=== PATIENT | female | born 1955 | race Caucasian/White ===

== ENCOUNTER 2021-02-25 20:39 | Emergency (ER) | payer MEDICAID, SELFPAY ==
[2021-02-25 20:51] VITALS: BP 134/77; PULSE 82; RESP 18; TEMP 36.2; O2SAT 96; BMI 26.2
[2021-02-25] MEDS: Cyclobenzaprine HCl 10 MG TABLET PO (22:21)
[2021-02-25] MEDS: predniSONE 20 MG TABLET 60 MG PO (22:22)
[2021-02-25] MEDS: Acetaminophen 325 MG TABLET 650 MG PO (22:23)
[2021-02-25] MEDS: Lidocaine 4 % Patch ADH..PATCH 1 PATCH TRANSDERMA (22:24)
--- NOTE | 2021-02-25 22:29 | ED_ITS ---
HPI - General Adult General Chief complaint: Back Pain/Injury Stated complaint: muscle spasms Time Seen by Provider: 02/25/21 22:09 Source: patient Mode of arrival: ambulatory Limitations: no limitations History of Present Illness HPI narrative: Patient presents to ED for chronic back pain/muscle spasms. Patient states she ran out of her Flexeril. Patient states she cannot take aspirin and NSAIDs for pain relief. Patient denies any recent trauma to the back, nausea, vomiting, fever, chills, dysuria, hematuria, abdominal pain or flank pain. Patient denies any urinary/bowel incontinence. Related Data Previous Rx's Medication Instructions Recorded cyclobenzaprine 10 mg tablet 10 mg PO TID PRN #18 tab 02/25/21 lidocaine 4 % topical patch 1 patch TOPICAL BID PRN #10 ea 02/25/21 prednisone 20 mg tablet 60 mg PO DAILY 5 Days #15 tab 02/25/21 Allergies Allergy/AdvReac Type Severity Reaction Status Date / Time aspirin [ASPIRIN] Allergy Intermediate RASH Verified 02/25/21 20:56 Penicillins [PENICILLINS] Allergy Intermediate SWELLING Verified 02/25/21 20:56 tramadol [TRAMADOL] Allergy Unknown NAUSEA Verified 02/25/21 20:56 Review of Systems Review of Systems: Yes all other systems are reviewed and are negative Constitutional: Constitutional: Reports as per HPI and Reports no additional constitutional complaints Eyes: Eyes: Reports as per HPI and Reports no additional eye complaints ENT: Reports system reviewed and no additional complaints, except as documented and Reports as per HPI Cardiovascular: Cardiovascular: Reports as per HPI and Reports no additional cardiovascular complaints Respiratory: Respiratory: Reports as per HPI and Reports no additional respiratory complaints Gastrointestinal: Gastrointestinal: Reports as per HPI and Reports no additional gastrointestinal complaints Genitourinary: Genitourinary: Reports no additional female genitourinary complaints and Reports as per HPI Musculoskeletal: Musculoskeletal: Reports no additional musculoskeletal complaints, Reports as per HPI and Reports back pain Neurologic: Reports system reviewed and no additional complaints, except as documented and Reports as per HPI Psychiatric: Psychiatric: Reports no additional psychiatric complaints and Reports as per HPI Endocrine: Endocrine: Reports no additional endocrine complaints and Reports as per HPI [facility] Past Medical History Medical History (Updated 02/25/21 @ 22:38 by DESIRE Baker) No known health problems Social History Social History Advance Directives: No Advance Directives Information Provided: Yes Patient : No Physical Exam Vital Signs: Vital Signs: Last Vital Signs Temp 97.1 F 02/25/21 20:51 Pulse 82 02/25/21 20:51 Resp 18 02/25/21 20:51 BP 134/77 02/25/21 20:51 Pulse Ox 96 02/25/21 20:51 Body Mass Index 26.2 Const: General: cooperative, healthy appearing, comfortable, no acute distress, well developed, alert, awake and Physically active Orientation/ consciousness: patient oriented x3 HENMT: Head: Yes normal to inspection, Yes No palpable skull fracture present, Yes normocephalic and Yes atraumatic Eyes: General: appearance normal, both eyes and all related structures Neck: Neck: Yes normal visual inspection, Yes full ROM, Yes no lymphadenopathy, Yes no meningeal signs, Yes trachea midline, Yes supple and No tender Chest: Chest palpation & inspection: normal inspection of the chest and normal palpation of entire chest wall Resp: Effort & Inspection: normal respiratory effort and able to speak in complete sentences Auscultation: clear to auscultation bilaterally Cardio: Jugular venous distension: no JVD Heart sounds: S1 normal heart sound present and S2 normal heart sound present GI: Inspection: Yes normal to inspection and No abdominal wall ecchymosis Palpation (GI): Soft to palpation, not firm, nontender, no guarding and not rigid : General: No CVA tenderness and Yes no CVA tenderness Back/Spine/Pelvis: Back: no CVA tenderness, No CVA tenderness and No back tenderness Back/spine/pelvis image: 1. Mild tenderness on palpation. Positive for pain on her range of motion. Negative for any ecchymosis. Patient has normal gait. Skin: General skin exam: no rashes or lesions noted and elasticity normal Neuro: General: patient oriented x3, gait normal, no meningeal signs and CN's II-XI intact bilaterally Cranial nerves: Yes CN's II-XII intact bilaterally Extrem: General: Yes normal to inspection and Yes full ROM Psych: Appearance: grossly normal, well kempt and not disheveled Course Course Course Narrative: Chronic back pain. Muscle spasms Reevaluation(s) Reevaluation #1: Patient given Flexeril, lidocaine patch, and prednisone. Patient will be discharged with same meds. Time: 22:33 Medical Decision Making [facility] Narrative Medical decision making narrative: Chronic back pain. Muscle spasm Discharge Plan Discharge Clinical Impression: Chronic back pain, Muscle spasm Patient Disposition: Home, Self-Care Instructions: Muscle Spasm (ED), Chronic Back Pain (DC) Additional Instructions: Regrese al servicio de urgencias por empeoramiento del dolor de espalda, incontinencia urinaria / intestinal, fiebre, escalofr?os, hematuria, disuria, v?mitos, dolor abdominal o cualquier otro s?ntoma preocupante. Se le cari? de markus con prednisona, parche de lidoca?na y Flexeril. Roger un seguimiento con de leon PCP. Prescriptions: New prednisone 20 mg tablet 60 mg PO DAILY 5 Days Qty: 15 RF: 0 cyclobenzaprine 10 mg tablet 10 mg PO TID PRN (Reason: muscle spasm) Qty: 18 RF: 0 lidocaine 4 % adhesive patch,medicated 1 patch topical BID PRN (Reason: pain) Qty: 10 RF: 0 Interventions: ED Discharge Assessment Last Done: 02/25/21 23:18 Discharge Date/Time: 02/25/21 23:24 Print Language: Setswana
== END 2021-02-25 23:24 | disposition home or self-care (01) ==
PROVIDERS: Emergency Provider Emergency Medicine
DX: M62.830 Muscle spasm of back (principal); G89.29 Other chronic pain; M54.9 Dorsalgia, unspecified
CPT/HCPCS: 99283; 99284

== ENCOUNTER 2021-02-28 16:47 | Emergency (ER) | payer MEDICAID, SELFPAY ==
[2021-02-28 17:04] VITALS: BP 124/66; PULSE 83; RESP 16; TEMP 37; O2SAT 96; BMI 26.2
--- NOTE | 2021-02-28 18:42 | ED.GENADULT ---
HPI - General Adult General Chief complaint: Back Pain/Injury <DESIRE Marquez Last Filed: 02/28/21 19:13> Stated complaint: muscle spasm <DESIRE Marquez Last Filed: 02/28/21 19:13> Time Seen by Provider: 02/28/21 17:40 <DESIRE Marquez Last Filed: 02/28/21 19:13> History of Present Illness HPI narrative: Patient with 2 complaints 1st complaint is she now has pain behind her right knee which she does not feel is radiating pain from her back She does have chronic back pain and has been troubled with sciatica in the same area but feels this is different from her sciatica Her 2nd complaint is the muscle relaxer she has been taking for her back pain is not sufficient and is hoping she could get a different pain medication for her back She denies fever chills no weakness no changes to bowel or bladder no difficulty breathing <DESIRE Marquez Last Filed: 02/28/21 19:13> Related Data Home medications: Previous Rx's Medication Instructions Recorded cyclobenzaprine 10 mg tablet 10 mg PO TID PRN #18 tab 02/25/21 lidocaine 4 % topical patch 1 patch TOPICAL BID PRN #10 ea 02/25/21 prednisone 20 mg tablet 60 mg PO DAILY 5 Days #15 tab 02/25/21 oxycodone 5 mg tablet 5 mg PO Q8H PRN 3 Days #10 tab 02/28/21 oxycodone 5 mg tablet 5 mg PO TID PRN #10 tab 02/28/21 <DESIRE Marquez Last Filed: 02/28/21 19:13> Allergies/adverse reactions: Allergies Allergy/AdvReac Type Severity Reaction Status Date / Time aspirin [ASPIRIN] Allergy Intermediate RASH Verified 02/28/21 17:09 Penicillins [PENICILLINS] Allergy Intermediate SWELLING Verified 02/28/21 17:09 tramadol [TRAMADOL] Allergy Unknown NAUSEA Verified 02/28/21 17:09 <DESIRE Marquez Last Filed: 02/28/21 19:13> Review of Systems Review of Systems: Positive for right popliteal pain as well as back pain Negatives are no fever no chills no dizziness no weakness no fainting no feeling faint no headache no neck pain no chest pain no shortness of breath no abdominal pain no nausea vomiting or diarrhea no dysuria no frequency no incontinence no changes to bowel or bladder no rashes no muscle weakness no loss of sensation <DESIRE Marquez - Last Filed: 02/28/21 19:13> Yes all other systems are reviewed and are negative <DESIRE Marquez - Last Filed: 02/28/21 19:13> [facility] Past Medical History Source: nursing notes reviewed <DESIRE Marquez - Last Filed: 02/28/21 19:13> Medical History: Medical History (Updated 03/01/21 @ 00:02 by Isabelle Anderson) Arthritis Diabetes No known health problems Retinopathy <DESIRE Marquez - Last Filed: 02/28/21 19:13> Social History Social History: Social History Advance Directives: No Advance Directives Information Provided: No <DESIRE Marquez - Last Filed: 02/28/21 19:13> Physical Exam Vital Signs: Vital Signs: Last Vital Signs Temp 98.6 F 02/28/21 17:04 Pulse 83 02/28/21 17:04 Resp 16 02/28/21 17:04 BP 124/66 02/28/21 17:04 Pulse Ox 96 02/28/21 17:04 Body Mass Index 26.2 <DESIRE Marquez - Last Filed: 02/28/21 19:13> Vital Signs: Last Vital Signs Temp 98.6 F 02/28/21 17:04 Pulse 83 02/28/21 17:04 Resp 16 02/28/21 17:04 BP 124/66 02/28/21 17:04 Pulse Ox 96 02/28/21 17:04 Body Mass Index 26.2 <Jose Juan Saucedo NP - Last Filed: 03/01/21 02:08> General appearance is no acute distress Head is normocephalic atraumatic Neck is supple The chest is clear to auscultation bilateral, no pleuritic pain Heart no murmur Abdomen soft nontender The back and lower lumbar tenderness worse on the right with no focal bony tenderness no rashes no CVA tenderness, pain is worse with movement Extremities is full range of motion x4 The right leg there is tenderness in the popliteal area of the right knee as well as some mild calf tenderness, skin is normal there is no redness no warmth no wound no rash, neurovascular intact distal no edema Skin no rashes Neuro no focal motor or sensory deficit <DESIRE Marquez - Last Filed: 02/28/21 19:13> Course Course Course Narrative: Patient with right popliteal pain could not be evaluated with ultrasound tonight as not available so plan is D-dimer, if negative discharge patient home with addition of a small quantity of Percocet for her back pain If D-dimer is positive she will be anticoagulated and return Tuesday for ultrasound 19:00 the case is signed out to physician medical assistant Sheryl to follow labs and dispo patient <DESIRE Marquez - Last Filed: 02/28/21 19:13> Reevaluation(s) Reevaluation #1: D-dimer negative consistent with acute on chronic low back pain in setting of spondylosis will discharge home with support on return: Follow-up instructions. Ambulatory status 50. Stable for discharge. <Jose Juan Saucedo NP - Last Filed: 03/01/21 02:08> Medical Decision Making Lab Data Result diagrams: : 02/28/21 18:41 02/28/21 18:41 <DESIRE Marquez - Last Filed: 02/28/21 19:13> Labs: Lab Results 02/28/21 02/28/21 02/28/21 Range/Units 18:41 18:41 18:41 WBC 7.3 (4.8-10.8) X10*3/uL RBC 3.90 L (4.20-5.50) X10*6/uL Hgb 10.6 L (12.0-16.0) g/dl Hct 32.6 L (37-47) % MCV 83.6 (80-98) fL MCH 27.2 (27.0-33.0) pg MCHC 32.5 (31.0-35.0) g/dl RDW 13.5 (11.0-16.0) % Plt Count 231 (160-400) X10*3/uL MPV 10.7 (9.4-12.3) fL Immature Gran % (Auto) 0.5 H (0.0-0.4) % Neut % (Auto) 50.9 (45-73) % Lymph % (Auto) 39.6 (20-40) % [place] % (Auto) 7.4 (2-11) % Eos % (Auto) 1.1 (0-4) % Baso % (Auto) 0.5 (0-2) % Lymph # (Auto) 2.9 (1.2-4.9) X10*3/uL [place] # (Auto) 0.5 (0.1-1.2) X10*3/uL Eos # (Auto) 0.1 (0.0-0.4) X10*3/uL Baso # (Auto) 0.0 (0.0-0.2) X10*3/uL Abs Immat Gran (auto) 0.04 H (0.00-0.03) X10*3/uL Absolute Neuts (auto) 3.7 (2.0-8.3) X10*3/uL Absolute Nucleated RBC 0.000 (0.0-0.012) X10*3/uL Nucleated RBC % (auto) 0.0 (0.0-0.2) /100WBC D-Dimer < 200 NG/ML Sodium 142 (135-145) mmol/L Potassium 4.5 (3.3-5.1) mmol/L Chloride 106 (96-108) mmol/L Carbon Dioxide 26 (22-29) mmol/L Anion Gap 15 (12-20) BUN 23 H (9-16) mg/dL Creatinine 0.83 (0.5-1.4) mg/dL Estim Creat Clear Calc 53.5 Estimated GFR > 60 Random Glucose 141 H (60-115) mg/dL Calcium 10.0 (8.4-10.2) mg/dL <DESIRE Marquez - Last Filed: 02/28/21 19:13> Lab Results 02/28/21 02/28/21 02/28/21 Range/Units 18:41 18:41 18:41 WBC 7.3 (4.8-10.8) X10*3/uL RBC 3.90 L (4.20-5.50) X10*6/uL Hgb 10.6 L (12.0-16.0) g/dl Hct 32.6 L (37-47) % MCV 83.6 (80-98) fL MCH 27.2 (27.0-33.0) pg MCHC 32.5 (31.0-35.0) g/dl RDW 13.5 (11.0-16.0) % Plt Count 231 (160-400) X10*3/uL MPV 10.7 (9.4-12.3) fL Immature Gran % (Auto) 0.5 H (0.0-0.4) % Neut % (Auto) 50.9 (45-73) % Lymph % (Auto) 39.6 (20-40) % [place] % (Auto) 7.4 (2-11) % Eos % (Auto) 1.1 (0-4) % Baso % (Auto) 0.5 (0-2) % Lymph # (Auto) 2.9 (1.2-4.9) X10*3/uL [place] # (Auto) 0.5 (0.1-1.2) X10*3/uL Eos # (Auto) 0.1 (0.0-0.4) X10*3/uL Baso # (Auto) 0.0 (0.0-0.2) X10*3/uL Abs Immat Gran (auto) 0.04 H (0.00-0.03) X10*3/uL Absolute Neuts (auto) 3.7 (2.0-8.3) X10*3/uL Absolute Nucleated RBC 0.000 (0.0-0.012) X10*3/uL Nucleated RBC % (auto) 0.0 (0.0-0.2) /100WBC D-Dimer < 200 NG/ML Sodium 142 (135-145) mmol/L Potassium 4.5 (3.3-5.1) mmol/L Chloride 106 (96-108) mmol/L Carbon Dioxide 26 (22-29) mmol/L Anion Gap 15 (12-20) BUN 23 H (9-16) mg/dL Creatinine 0.83 (0.5-1.4) mg/dL Estim Creat Clear Calc 53.5 Estimated GFR > 60 Random Glucose 141 H (60-115) mg/dL Calcium 10.0 (8.4-10.2) mg/dL <Jose Juan Saucedo NP - Last Filed: 03/01/21 02:08> Discharge Plan Discharge Clinical Impression: Back pain, Leg pain, right <DESIRE Marquez - Last Filed: 02/28/21 19:13> Patient Disposition: Home, Self-Care <DESIRE Marquez - Last Filed: 02/28/21 19:13> Prescriptions: New oxycodone 5 mg tablet 5 mg PO Q8H PRN (Reason: pain) 3 Days Qty: 10 RF: 0 oxycodone 5 mg tablet 5 mg PO TID PRN (Reason: pain) Qty: 10 RF: 0 No Action prednisone 20 mg tablet 60 mg PO DAILY 5 Days Qty: 15 RF: 0 cyclobenzaprine 10 mg tablet 10 mg PO TID PRN (Reason: muscle spasm) Qty: 18 RF: 0 lidocaine 4 % adhesive patch,medicated 1 patch topical BID PRN (Reason: pain) Qty: 10 RF: 0 <DESIRE Marquez - Last Filed: 02/28/21 19:13> Interventions: ED Discharge Assessment Last Done: 02/28/21 20:04 <DESIRE Marquez - Last Filed: 02/28/21 19:13> Discharge Date/Time: 02/28/21 20:12 <DESIRE Marquez - Last Filed: 02/28/21 19:13>
[2021-02-28 18:45] LABS: MANUAL DIFF FLAG NO
[2021-02-28 18:46] LABS: Basophils Percent Auto 0.5 % (0-2); Eosinophils Absolute Auto 0.1 X10*3/uL (0.0-0.4); Eosinophils Percent Auto 1.1 % (0-4); Hematocrit 32.6 % (37-47); Hemoglobin 10.6 g/dl (12.0-16.0); Imm Gran Abs Auto 0.04 X10*3/uL (0.00-0.03); Imm Gran Pct Auto 0.5 % (0.0-0.4); Lymphocytes Absolute Auto 2.9 X10*3/uL (1.2-4.9); Lymphocytes Percent Auto 39.6 % (20-40); Mean Corpuscular HGB Conc 32.5 g/dl (31.0-35.0); Mean Corpuscular Hemoglobin 27.2 pg (27.0-33.0); Mean Corpuscular Volume 83.6 fL (80-98); Mean Platelet Volume 10.7 fL (9.4-12.3); Monocytes Absolute Auto 0.5 X10*3/uL (0.1-1.2); Monocytes Percent Auto 7.4 % (2-11); Neutrophils Absolute Auto 3.7 X10*3/uL (2.0-8.3); Neutrophils Percent Auto 50.9 % (45-73); Platelet Count 231 X10*3/uL (160-400); Red Cell Distribution Width 13.5 % (11.0-16.0); White Blood Count 7.3 X10*3/uL (4.8-10.8)
[2021-02-28 18:56] LABS: D Dimer < 200 NG/ML
[2021-02-28 19:19] LABS: Anion Gap 15 (12-20); Blood Urea Nitrogen 23 mg/dL (9-16); Carbon Dioxide 26 mmol/L (22-29); Chloride 106 mmol/L (96-108); Creatinine Clr Calc Pharmacy 53.5; Estimated Glomerular Filt Rate > 60; Glucose Random 141 mg/dL (60-115); Potassium 4.5 mmol/L (3.3-5.1); Sodium 142 mmol/L (135-145)
== END 2021-02-28 20:12 | disposition home or self-care (01) ==
PROVIDERS: Physician Assistant Medical; Emergency Provider Emergency Medicine
DX: G89.29 Other chronic pain (principal); M54.5 Low back pain; M79.661 Pain in right lower leg; E11.9 Type 2 diabetes mellitus without complications
CPT/HCPCS: 36415; 80048; 85025; 85379; 99283

== ENCOUNTER 2021-04-06 11:50 | Emergency (ER) | payer MEDICAID, SELFPAY ==
--- NOTE | ~2021-04-06 | XR_ITS ---
EXAMINATION: XR KNEE, RIGHT CLINICAL INFORMATION: Twisting injury COMPARISON: None TECHNIQUE: Four views of the right knee. FINDINGS: Bone alignment is normal. No fracture or dislocation is seen. The femoral tibial joints are normal. There is small osteophytes at the patellofemoral joint. There is an osteophyte at the quadriceps tendon insertion to the patella. There is a small joint effusion. XR/XR knee RT 4V IMPRESSION: No fracture or dislocation. Mild degenerative changes at the patellofemoral joint and small joint effusion.
[2021-04-06 12:30] VITALS: BP 166/85; PULSE 76; RESP 16; TEMP 36.9; O2SAT 100; BMI 26.2
--- NOTE | 2021-04-06 15:24 | ED.LOWEXIN ---
HPI - Extremity Injury (Lower) General Chief Complaint: General Medical Stated Complaint: med refill, rt knee pain Time Seen by Provider: 04/06/21 13:55 Source: patient and family Mode of arrival: ambulatory Limitations: language barrier (Bulgarian-speaking) History of Present Illness HPI Narrative: 65-year-old female presenting to the ED with complaints of right knee pain after she fell approximately 1 month ago and recently had a twisting injury when she was going on the steps and that increased her pain. She reports she was never seen for her right knee pain when she fell. She denies head injury or loss of consciousness when she fell. She denies any symptoms prior to the fall or any prolonged downtown any symptoms after the fall. She has a 2nd complaint of requesting medication refill as she normally lives in [place] and does not have a primary care provider at this time here in [place] and she needs the refill on her Plavix 75 mg daily. She took it this morning. Metoprolol extended release 100 mg she took it this morning. Amlodipine 5 mg tablets she ran out this morning although took 1 this morning. atorvastatin 40 mg tablets she took this morning. Otherwise she denies any other medication request refills. She denies any other symptoms complaints or concerns at this time. complaint: knee injury Onset (ago): month(s) (1 month ago worsen the past few days) Type of Injury: other (Twist injury) Place: home Severity: mild Relieving factors: nothing Exacerbating factors: weight bearing, movement and palpation Context: other (Twist injury) Associated symptoms: ambulatory Other symptoms: none Related Data Previous Rx's Medication Instructions Recorded cyclobenzaprine 10 mg tablet 10 mg PO TID PRN #18 tab 02/25/21 lidocaine 4 % topical patch 1 patch TOPICAL BID PRN #10 ea 02/25/21 prednisone 20 mg tablet 60 mg PO DAILY 5 Days #15 tab 02/25/21 oxycodone 5 mg tablet 5 mg PO Q8H PRN 3 Days #10 tab 02/28/21 oxycodone 5 mg tablet 5 mg PO TID PRN #10 tab 02/28/21 acetaminophen 300 mg-codeine 30 mg 1 tab PO Q8H PRN #10 tab 04/06/21 tablet amlodipine 5 mg tablet 5 mg PO DAILY #30 tab 04/06/21 atorvastatin 40 mg tablet 40 mg PO DAILY #30 tab 04/06/21 clopidogrel 75 mg tablet (Plavix) 75 mg PO DAILY #30 tab 04/06/21 lidocaine HCl 4 % topical cream 1 appl TOPICAL BID PRN #120 g 04/06/21 (Aspercreme (lidocaine HCl)) metoprolol succinate 100 mg 100 mg PO DAILY #30 tab 04/06/21 tablet,extended release 24 hr walker #1 ea 04/06/21 Allergies Allergy/AdvReac Type Severity Reaction Status Date / Time aspirin [ASPIRIN] Allergy Intermediate RASH Verified 02/28/21 17:09 Penicillins [PENICILLINS] Allergy Intermediate SWELLING Verified 02/28/21 17:09 tramadol [TRAMADOL] Allergy Unknown NAUSEA Verified 02/28/21 17:09 Review of Systems Review of Systems: Constitutional : No Weight loss, No Fever, No Chills, No Night Sweats, No Fatigue, No Malaise ENT/Mouth : No Hearing loss, No Ear Pain, No Nasal Congestion, No Sinus Pain, No Hoarseness, No sore throat, No Rhinorrhea, No Swallowing Difficulty Eyes: No Eye Pain, No Swelling, No Redness, No Foreign Body, No Discharge, No Vision Changes Cardiovascular : No Chest Pain, No SOB, No Dyspnea on Exertion, No Orthopnea, No Edema, No Palpitations Respiratory : No Cough, No Sputum, No Wheezing, No Smoke Exposure, No Dyspnea Gastrointestinal : No Nausea, No Vomiting, No Diarrhea, No Constipation, No abdominal Pain, No Hematochezia, No Melena Genitourinary : no irregular bleeding, No Dysuria, No Urinary Frequency, No Hematuria, No Urinary Incontinence, No Urgency, No Flank Pain, No Urinary Flow Changes, No Hesitancy Musculoskeletal : Positive right knee joint pain, No Myalgias, No Joint Swelling Skin : No Skin Lesions, No rash Neuro : No Weakness, No Numbness, No Paresthesias, No Loss of Consciousness, No Dizziness, No Headache Psych : No Anxiety/Panic, No Depression, No SI/HI/AH/VH, No Social Issues, Heme/Lymph: No Bruising, No Bleeding,No Lymphadenopathy Endocrine : No Polyuria, No Polydipsia, No Temperature Intolerance Yes all other systems are reviewed and are negative [facility] Past Medical History Attestation statement: The following information was validated with the patient. Medical History Arthritis Diabetes No known health problems Retinopathy Social History Social History Advance Directives: No Advance Directives Information Provided: Yes Physical Exam Vital Signs: Vital Signs: Last Vital Signs Temp 98.4 F 04/06/21 12:30 Pulse 76 04/06/21 12:30 Resp 16 04/06/21 12:30 BP 166/85 H 04/06/21 12:30 Pulse Ox 100 04/06/21 12:30 Body Mass Index 26.2 vital signs have been reviewed as normal and appeared to be correct. Blood pressure hypertensive 166/85. Heart rate normal. Respiration rate normal. Temperature normal. Oxygen saturation normal. Appearance: Alert. Oriented X3. No acute distress. Head: Normal external exam. Normocephalic. Atraumatic. Eyes: PERRLA. EOMI. Conjunctiva and sclera normal. Eyelids normal. ENT: Pharynx normal. Uvula midline. Moist mucous membranes. Neck: Normal inspection. Neck supple. FROM. CVS: Normal heart rate and rhythm. Respiratory: No respiratory distress. Painless inspiration. Skin: Skin warm and dry. Normal skin color. Normal skin turgor. No rashes/lesions/lacerations noted. Extremities: No calf tenderness is noted. No lower extremity edema. Patient with tenderness palpation diffusely on the right knee although no obvious joint effusion/ligamentous injury or tendon injury. Patient has full range of motion of the right knee. No signs of infection. No fluctuance/induration is noted. Otherwise all other extremities exhibit normal range of motion and nontender. Neuro: Oriented X 3. No motor deficit. No sensory deficit. Reflexes normal. Normal steady gait. No focal neuro deficits noted. Vascular: + radial pulses/+ 2 distal pedal pulses/+2 dorsalis pedis b/l. Normal cap refill. No cyanosis noted to upper extremity nails and lower extremity toes nails. Course Course Course Narrative: 65-year-old female presenting to the ED with complaints of right knee pain after she fell 1 month ago and recently twisted it a few days ago. Denies head injury or loss of consciousness. Also requesting for medication refill for her for medications she took them all this morning. Although ran out of the amlodipine this morning. Denies any cardiac related complaints. Reports that she does not have a primary care provider because she recently moved back here from [place]. Therefore x-ray of right knee ordered and if negative will DC home with symptomatic treatment and will DC home with numbers for primary care providers that she can contact and referral for her medications which include Plavix 700 mg tablet. Metoprolol 100 mg tablets extended release. Amlodipine 5 mg tablet and a statin. Along with instructions to return if any new or worsening symptoms. Patient understands agrees with this plan. MDM - Extremity Injury (Lower) Medical Records Attestation: I reviewed the patient's medical records. Imaging Data Right knee x-ray: Attestation: I personally reviewed and interpreted this imaging study as follows: Radiologist's impression: FINDINGS: Bone alignment is normal. No fracture or dislocation is seen. The femoral tibial joints are normal. There is small osteophytes at the patellofemoral joint. There is an osteophyte at the quadriceps tendon insertion to the patella. There is a small joint effusion.? XR/XR knee RT 4V IMPRESSION: No fracture or dislocation. Mild degenerative changes at the patellofemoral joint and small joint effusion. Discharge Plan Discharge Clinical Impression: Right knee sprain, Arthritis of right knee, Medication refill, Joint effusion of knee Patient Disposition: Home, Self-Care Instructions: Knee Sprain (ED), Osteoarthritis (ED), How to Use an Elastic Bandage (ED), Swollen Knee Joint (ED), Medicine Refill (ED) Prescriptions: New acetaminophen-codeine 300-30 mg tablet 1 tab PO Q8H PRN (Reason: pain) Qty: 10 RF: 0 lidocaine HCl [Aspercreme (lidocaine HCl)] 4 % cream 1 appl topical BID PRN (Reason: pain) Qty: 120 RF: 0 metoprolol succinate 100 mg tablet extended release 24 hr 100 mg PO DAILY Qty: 30 RF: 3 amlodipine 5 mg tablet 5 mg PO DAILY Qty: 30 RF: 3 clopidogrel [Plavix] 75 mg tablet 75 mg PO DAILY Qty: 30 RF: 3 atorvastatin 40 mg tablet 40 mg PO DAILY Qty: 30 RF: 3 (DME) emerson Crespo See Rx Instructions .Route Qty: 1 RF: 0 No Action prednisone 20 mg tablet 60 mg PO DAILY 5 Days Qty: 15 RF: 0 cyclobenzaprine 10 mg tablet 10 mg PO TID PRN (Reason: muscle spasm) Qty: 18 RF: 0 lidocaine 4 % adhesive patch,medicated 1 patch topical BID PRN (Reason: pain) Qty: 10 RF: 0 oxycodone 5 mg tablet 5 mg PO Q8H PRN (Reason: pain) 3 Days Qty: 10 RF: 0 oxycodone 5 mg tablet 5 mg PO TID PRN (Reason: pain) Qty: 10 RF: 0 Referrals: [facility] [Provider Group] - 2 days [facility] [Provider Group] - 2 days [facility] [place] [facility] [Provider Group] - 2 days Print Language: Bulgarian
[2021-04-06 15:56] VITALS: BP 136/65; PULSE 70; RESP 16; TEMP 36.4; O2SAT 98
== END 2021-04-06 16:23 | disposition home or self-care (01) ==
PROVIDERS: Emergency Provider Emergency Medicine Emergency Medical Services
DX: S83.91XA Sprain of unspecified site of right knee, initial encounter (principal); M12.561 Traumatic arthropathy, right knee; W10.9XXA Fall (on) (from) unspecified stairs and steps, initial encounter; Y93.9 Activity, unspecified; Y92.89 Other specified places as the place of occurrence of the external cause; Y99.9 Unspecified external cause status; Z76.0 Encounter for issue of repeat prescription; Z79.899 Other long term (current) drug therapy
CPT/HCPCS: 73564; 99283; 99284

== ENCOUNTER 2021-05-18 11:32 | Emergency (ER) | payer MEDICARE, SELFPAY ==
[2021-05-18 12:35] VITALS: BP 147/76; PULSE 81; RESP 18; TEMP 35.5; O2SAT 100; BMI 25.4
--- NOTE | 2021-05-18 13:24 | ED.GENADULT ---
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 Patient also have no complaint at this point. Related Data Previous Rx's Medication Instructions Recorded cyclobenzaprine 10 mg tablet 10 mg PO TID PRN #18 tab 02/25/21 lidocaine 4 % topical patch 1 patch TOPICAL BID PRN #10 ea 02/25/21 prednisone 20 mg tablet 60 mg PO DAILY 5 Days #15 tab 02/25/21 oxycodone 5 mg tablet 5 mg PO Q8H PRN 3 Days #10 tab 02/28/21 oxycodone 5 mg tablet 5 mg PO TID PRN #10 tab 02/28/21 acetaminophen 300 mg-codeine 30 mg 1 tab PO Q8H PRN #10 tab 04/06/21 tablet amlodipine 5 mg tablet 5 mg PO DAILY #30 tab 04/06/21 atorvastatin 40 mg tablet 40 mg PO DAILY #30 tab 04/06/21 clopidogrel 75 mg tablet (Plavix) 75 mg PO DAILY #30 tab 04/06/21 lidocaine HCl 4 % topical cream 1 appl TOPICAL BID PRN #120 g 04/06/21 (Aspercreme (lidocaine HCl)) metoprolol succinate 100 mg 100 mg PO DAILY #30 tab 04/06/21 tablet,extended release 24 hr walker #1 ea 04/06/21 gabapentin 600 mg tablet 300 mg PO TID #30 tab 05/18/21 glipizide 5 mg tablet 2.5 mg PO DAILY #30 tab 05/18/21 hydrochlorothiazide 25 mg tablet 25 mg PO DAILY #30 tab 05/18/21 lisinopril 40 mg tablet 40 mg PO DAILY #30 tab 05/18/21 metformin 500 mg tablet 500 mg PO BID #30 tab 05/18/21 Allergies Allergy/AdvReac Type Severity Reaction Status Date / Time aspirin [ASPIRIN] Allergy Intermediate RASH Verified 02/28/21 17:09 Penicillins [PENICILLINS] Allergy Intermediate SWELLING Verified 02/28/21 17:09 tramadol [TRAMADOL] Allergy Unknown NAUSEA Verified 02/28/21 17:09 Review of Systems Review of Systems: All other systems are reviewed and are negative Constitutional: Reports as per HPI and Reports no additional constitutional complaints Eyes: Reports as per HPI and Reports no additional eye complaints Reports system reviewed and no additional complaints, except as documented Cardiovascular: Reports as per HPI and Reports no additional cardiovascular complaints Respiratory: Reports as per HPI and Reports no additional respiratory complaints Gastrointestinal: Reports as per HPI and Reports no additional gastrointestinal complaints Genitourinary: Reports no additional female genitourinary complaints Musculoskeletal: Reports no additional musculoskeletal complaints Skin/Breast: Reports system reviewed and no additional complaints, except as docu Psychiatric: Reports no additional psychiatric complaints Endocrine: Reports no additional endocrine complaints Hematologic/Lymphatic: Reports no additional hematologic/lymphatic complaints Allergic/Immunologic: Reports no additional allergic/immunologic complaints Reports system reviewed and no additional complaints, except as documented and Reports Abnormal speech present [facility] Past Medical History Medical History Arthritis Diabetes No known health problems Retinopathy Social History Social History Advance Directives: No Advance Directives Information Provided: No Physical Exam Vital Signs: Vital Signs: Last Vital Signs Temp 96 F L 05/18/21 12:35 Pulse 81 05/18/21 12:35 Resp 18 05/18/21 12:35 BP 147/76 H 05/18/21 12:35 Pulse Ox 100 05/18/21 12:35 Body Mass Index 25.4 vital signs have been reviewed as appeared to be correct. Blood pressure normal. Heart rate normal. Respiration rate normal. Temperature normal. Oxygen saturation normal. Appearance: Alert. Oriented X3. No acute distress. Head: Normal external exam. Normocephalic. Atraumatic. No [place] signs noted. No raccoon eyes noted Eyes: PERRLA. EOMI. Conjunctiva and sclera normal. Eyelids normal. ENT: TM's Normal. Pharynx normal. Uvula midline. Moist mucous membranes. No trismus noted. No drooling noted. No muffled voice noted. Neck: Normal inspection. Neck supple. FROM. No adenopathy. Thyroid Normal. No meningeal signs. No neck mass noted. CVS: Normal heart rate and rhythm. Heart sound normal. No murmurs noted. Pulses normal throughout. Respiratory: No respiratory distress. Painless inspiration. Breath sounds normal. No wheezes/rales/rhonchi noted. Chest nontender. No accessory muscle usage noted or decreased air movement noted. Abdomen: Soft and nontender. Bowel sounds normal in all 4 quadrants. No distention noted. No organomegaly noted. No visible injury noted. Back: No CVA tenderness. Full range of motion noted. Skin: Skin warm and dry. Normal skin color. Normal skin turgor. No rashes/lesions/lacerations noted. Extremities: No lower extremity edema. Extremities exhibit normal range of motion. Extremities nontender. Neuro: Oriented X 3. Cranial nerve exam: II-XII are grossly intact No motor deficit. No sensory deficit. Reflexes normal. Course Course Course Narrative: Assessment and plan. 66-year-old female has no complaint today only asking for refill of her medication until she gets to a doctor. Discharge Plan Discharge Clinical Impression: Encounter for medical screening examination Patient Disposition: Home, Self-Care Prescriptions: New hydrochlorothiazide 25 mg tablet 25 mg PO DAILY Qty: 30 RF: 0 glipizide 5 mg tablet 2.5 mg PO DAILY Qty: 30 RF: 0 metformin 500 mg tablet 500 mg PO BID Qty: 30 RF: 0 gabapentin 600 mg tablet 300 mg PO TID Qty: 30 RF: 0 lisinopril 40 mg tablet 40 mg PO DAILY Qty: 30 RF: 0 No Action prednisone 20 mg tablet 60 mg PO DAILY 5 Days Qty: 15 RF: 0 cyclobenzaprine 10 mg tablet 10 mg PO TID PRN (Reason: muscle spasm) Qty: 18 RF: 0 lidocaine 4 % adhesive patch,medicated 1 patch topical BID PRN (Reason: pain) Qty: 10 RF: 0 acetaminophen-codeine 300-30 mg tablet 1 tab PO Q8H PRN (Reason: pain) Qty: 10 RF: 0 lidocaine HCl [Aspercreme (lidocaine HCl)] 4 % cream 1 appl topical BID PRN (Reason: pain) Qty: 120 RF: 0 metoprolol succinate 100 mg tablet extended release 24 hr 100 mg PO DAILY Qty: 30 RF: 3 amlodipine 5 mg tablet 5 mg PO DAILY Qty: 30 RF: 3 clopidogrel [Plavix] 75 mg tablet 75 mg PO DAILY Qty: 30 RF: 3 atorvastatin 40 mg tablet 40 mg PO DAILY Qty: 30 RF: 3 (HUGO) walker Misc See Rx Instructions .Route Qty: 1 RF: 0 oxycodone 5 mg tablet 5 mg PO Q8H PRN (Reason: pain) 3 Days Qty: 10 RF: 0 oxycodone 5 mg tablet 5 mg PO TID PRN (Reason: pain) Qty: 10 RF: 0 Referrals: Physician,None [Primary Care Provider] - 2 days
== END 2021-05-18 13:44 | disposition home or self-care (01) ==
PROVIDERS: Emergency Provider Emergency Medicine
DX: Z76.0 Encounter for issue of repeat prescription (principal); E11.9 Type 2 diabetes mellitus without complications; M19.90 Unspecified osteoarthritis, unspecified site
CPT/HCPCS: 99283

== ENCOUNTER 2021-06-24 09:13 | Emergency (ER) | payer MEDICARE, SELFPAY ==
[2021-06-24 10:21] VITALS: BP 122/67; PULSE 90; RESP 16; TEMP 36.9; O2SAT 98; BMI 26.2
--- NOTE | 2021-06-24 11:08 | ED_ITS ---
HPI - Recheck/Abnormal Lab/Rx General Chief Complaint: General Medical Stated Complaint: Medication refill Time Seen by Provider: 06/24/21 11:05 Source: patient Mode of arrival: ambulatory Limitations: language barrier ([place]dean-speaking) History of Present Illness HPI narrative: 66-year-old female who is [place]dean-speaking presenting with her grandson at bedside with request for all her medications to be refilled because she recently moved from [place] and has not established a primary care provider yet is currently on a wait list she denies any symptoms at this time. MD complaint: medication refill request Returns today for: request for prescription Symptoms since prior visit: no new symptoms Context: ran out of medication Associated symptoms: none Related Data Previous Rx's Medication Instructions Recorded cyclobenzaprine 10 mg tablet 10 mg PO TID PRN #18 tab 02/25/21 lidocaine 4 % topical patch 1 patch TOPICAL BID PRN #10 ea 02/25/21 prednisone 20 mg tablet 60 mg PO DAILY 5 Days #15 tab 02/25/21 oxycodone 5 mg tablet 5 mg PO Q8H PRN 3 Days #10 tab 02/28/21 oxycodone 5 mg tablet 5 mg PO TID PRN #10 tab 02/28/21 acetaminophen 300 mg-codeine 30 mg 1 tab PO Q8H PRN #10 tab 04/06/21 tablet amlodipine 5 mg tablet 5 mg PO DAILY #30 tab 04/06/21 atorvastatin 40 mg tablet 40 mg PO DAILY #30 tab 04/06/21 clopidogrel 75 mg tablet (Plavix) 75 mg PO DAILY #30 tab 04/06/21 lidocaine HCl 4 % topical cream 1 appl TOPICAL BID PRN #120 g 04/06/21 (Aspercreme (lidocaine HCl)) metoprolol succinate 100 mg 100 mg PO DAILY #30 tab 04/06/21 tablet,extended release 24 hr walker #1 ea 04/06/21 gabapentin 600 mg tablet 300 mg PO TID #30 tab 05/18/21 glipizide 5 mg tablet 2.5 mg PO DAILY #30 tab 05/18/21 hydrochlorothiazide 25 mg tablet 25 mg PO DAILY #30 tab 05/18/21 lisinopril 40 mg tablet 40 mg PO DAILY #30 tab 05/18/21 metformin 500 mg tablet 500 mg PO BID #30 tab 05/18/21 amlodipine 5 mg tablet 5 mg PO DAILY #30 tab 06/24/21 atorvastatin 40 mg tablet 40 mg PO DAILY #30 tab 06/24/21 clopidogrel 75 mg tablet (Plavix) 75 mg PO DAILY #30 tab 06/24/21 gabapentin 300 mg capsule 300 mg PO TID #90 cap 06/24/21 glipizide 5 mg tablet 2.5 mg PO DAILY #30 tab 06/24/21 hydrochlorothiazide 25 mg tablet 25 mg PO DAILY #30 tab 06/24/21 lisinopril 40 mg tablet 40 mg PO DAILY #30 tab 06/24/21 metformin 500 mg tablet 500 mg PO BID #60 tab 06/24/21 metoprolol succinate 100 mg 100 mg PO DAILY #30 tab 06/24/21 tablet,extended release 24 hr Allergies Allergy/AdvReac Type Severity Reaction Status Date / Time aspirin [ASPIRIN] Allergy Intermediate RASH Verified 02/28/21 17:09 Penicillins [PENICILLINS] Allergy Intermediate SWELLING Verified 02/28/21 17:09 tramadol [TRAMADOL] Allergy Unknown NAUSEA Verified 02/28/21 17:09 Review of Systems Review of Systems: Constitutional : No Weight loss, No Fever, No Chills, No Night Sweats, No Fatigue, No Malaise ENT/Mouth : No Hearing loss, No Ear Pain, No Nasal Congestion, No Sinus Pain, No Hoarseness, No sore throat, No Rhinorrhea, No Swallowing Difficulty Eyes: No Eye Pain, No Swelling, No Redness, No Foreign Body, No Discharge, No Vision Changes Cardiovascular : No Chest Pain, No SOB, No Dyspnea on Exertion, No Orthopnea, No Edema, No Palpitations Respiratory : No Cough, No Sputum, No Wheezing, No Smoke Exposure, No Dyspnea Gastrointestinal : No Nausea, No Vomiting, No Diarrhea, No Constipation, No abdominal Pain, No Hematochezia, No Melena Genitourinary : no irregular bleeding, No Dysuria, No Urinary Frequency, No Hematuria, No Urinary Incontinence, No Urgency, No Flank Pain, No Urinary Flow Changes, No Hesitancy Musculoskeletal : No joint pain, No Myalgias, No Joint Swelling Skin : No Skin Lesions, No rash Neuro : No Weakness, No Numbness, No Paresthesias, No Loss of Consciousness, No Dizziness, No Headache Psych : No Anxiety/Panic, No Depression, No SI/HI/AH/VH, No Social Issues, Heme/Lymph: No Bruising, No Bleeding,No Lymphadenopathy Endocrine : No Polyuria, No Polydipsia, No Temperature Intolerance Yes all other systems are reviewed and are negative [facility] Past Medical History Attestation statement: The following information was validated with the patient. Medical History Arthritis Diabetes No known health problems Retinopathy Social History Social History Advance Directives: No Advance Directives Information Provided: No Physical Exam Vital Signs: Vital Signs: Last Vital Signs Temp 98.5 F 06/24/21 10:21 Pulse 90 06/24/21 10:21 Resp 16 06/24/21 10:21 BP 122/67 06/24/21 10: Pulse Ox 98 06/24/21 10:21 BMI result Body Mass Index 26.2 vital signs have been reviewed as normal and appeared to be correct. Blood pressure normal Heart rate normal. Respiration rate normal. Temperature normal. Oxygen saturation normal. Appearance: Alert. Oriented X3. No acute distress. Head: Normal external exam. Normocephalic. Atraumatic. Eyes: PERRLA. EOMI. Conjunctiva and sclera normal. Eyelids normal. ENT: Pharynx normal. Uvula midline. Moist mucous membranes. Neck: Normal inspection. Neck supple. FROM. CVS: Normal heart rate and rhythm. Respiratory: No respiratory distress. Painless inspiration. Skin: Skin warm and dry. Normal skin color. Normal skin turgor. No rashes/lesions/lacerations noted. Extremities: No lower extremity edema. Extremities exhibit normal range of motion. Extremities nontender. Neuro: Oriented X 3. No motor deficit. No sensory deficit. Reflexes normal. Normal steady gait. No focal neuro deficits noted. Vascular: + radial pulses/+ 2 distal pedal pulses/+2 dorsalis pedis b/l. Normal cap refill. No cyanosis noted to upper extremity nails and lower extremity toes nails. Course Course Course Narrative: Will refill all patient's meds for at least 30-60 days. Instructed to return if any new or worsening symptoms and to continue trying to establish primary care provider. Patient understands agrees with this plan. MDM - Recheck/Abnormal Lab/Rx Medical Records Attestation: I reviewed the patient's medical records. Discharge Plan Discharge Clinical Impression: Medication refill Patient Disposition: Home, Self-Care Instructions: Medicine Refill (ED) Prescriptions: New hydrochlorothiazide 25 mg tablet 25 mg PO DAILY Qty: 30 RF: 3 glipizide 5 mg tablet 2.5 mg PO DAILY Qty: 30 RF: 3 amlodipine 5 mg tablet 5 mg PO DAILY Qty: 30 RF: 3 metformin 500 mg tablet 500 mg PO BID Qty: 60 RF: 3 clopidogrel [Plavix] 75 mg tablet 75 mg PO DAILY Qty: 30 RF: 3 metoprolol succinate 100 mg tablet extended release 24 hr 100 mg PO DAILY Qty: 30 RF: 3 atorvastatin 40 mg tablet 40 mg PO DAILY Qty: 30 RF: 3 lisinopril 40 mg tablet 40 mg PO DAILY Qty: 30 RF: 3 gabapentin 300 mg capsule 300 mg PO TID Qty: 90 RF: 3 Continued prednisone 20 mg tablet 60 mg PO DAILY 5 Days Qty: 15 RF: 0 cyclobenzaprine 10 mg tablet 10 mg PO TID PRN (Reason: muscle spasm) Qty: 18 RF: 0 lidocaine 4 % adhesive patch,medicated 1 patch topical BID PRN (Reason: pain) Qty: 10 RF: 0 acetaminophen-codeine 300-30 mg tablet 1 tab PO Q8H PRN (Reason: pain) Qty: 10 RF: 0 lidocaine HCl [Aspercreme (lidocaine HCl)] 4 % cream 1 appl topical BID PRN (Reason: pain) Qty: 120 RF: 0 metoprolol succinate 100 mg tablet extended release 24 hr 100 mg PO DAILY Qty: 30 RF: 3 amlodipine 5 mg tablet 5 mg PO DAILY Qty: 30 RF: 3 clopidogrel [Plavix] 75 mg tablet 75 mg PO DAILY Qty: 30 RF: 3 atorvastatin 40 mg tablet 40 mg PO DAILY Qty: 30 RF: 3 (DME) walker Misc See Rx Instructions .Route Qty: 1 RF: 0 oxycodone 5 mg tablet 5 mg PO Q8H PRN (Reason: pain) 3 Days Qty: 10 RF: 0 oxycodone 5 mg tablet 5 mg PO TID PRN (Reason: pain) Qty: 10 RF: 0 hydrochlorothiazide 25 mg tablet 25 mg PO DAILY Qty: 30 RF: 0 glipizide 5 mg tablet 2.5 mg PO DAILY Qty: 30 RF: 0 metformin 500 mg tablet 500 mg PO BID Qty: 30 RF: 0 gabapentin 600 mg tablet 300 mg PO TID Qty: 30 RF: 0 lisinopril 40 mg tablet 40 mg PO DAILY Qty: 30 RF: 0 Referrals: ED Physician,Generic [Emergency Provider] - 2 days (your pcp) Print Language: [place]
== END 2021-06-24 11:42 | disposition home or self-care (01) ==
PROVIDERS: Emergency Provider Emergency Medicine
DX: Z76.0 Encounter for issue of repeat prescription (principal); E11.9 Type 2 diabetes mellitus without complications
CPT/HCPCS: 99282; 99283

== ENCOUNTER 2021-07-23 12:23 | Outpatient (REF) | payer MEDICARE, SELFPAY ==
[2021-07-23 13:07] LABS: COVID-19 Test Positive (Negative); IDNOW Serial# 55D5AD1C
== END 2021-07-23 12:24 | disposition home or self-care (01) ==
LOC: HO.LAB 12:23
PROVIDERS: Visit Provider Internal Medicine
DX: Z20.822 Contact with and (suspected) exposure to COVID-19 (principal)
CPT/HCPCS: 87635; C9803

== ENCOUNTER 2021-09-23 09:27 | Emergency (ER) | payer MEDICARE, MEDICAID, SELFPAY ==
[2021-09-23 09:38] VITALS: BP 109/67; PULSE 79; RESP 19; TEMP 36.1; O2SAT 98; BMI 26.2
[2021-09-23] MEDS: Cyclobenzaprine HCl 10 MG TABLET PO (10:26)
[2021-09-23] MEDS: Acetaminophen 325 MG TABLET 650 MG PO (10:26)
[2021-09-23] MEDS: Lidocaine 4 % Patch ADH..PATCH 1 PATCH TRANSDERMA (10:27)
--- NOTE | 2021-09-23 10:31 | ED_ITS ---
HPI - General Adult General Chief complaint: General Medical Stated complaint: muscle spasms growth on back Time Seen by Provider: 09/23/21 10:07 Source: patient Mode of arrival: ambulatory History of Present Illness HPI narrative: 66-year-old female with past medical history of arthritis, diabetes, retinopathy, presenting to the ED complaining of right-sided neck pain/spasming x2 weeks radiating to head and right shoulder. Associated headache not maximal in onset. Admits to taking Flexeril and Tylenol at home without relief. Denies vision change/ loss, numbness, tingling, weakness, CP/SOB, trauma/injury. Admits to similar symptoms in the past Onset (ago): week(s) Related Data Previous Rx's Medication Instructions Recorded cyclobenzaprine 10 mg tablet 10 mg PO TID PRN #18 tab 02/25/21 lidocaine 4 % topical patch 1 patch TOPICAL BID PRN #10 ea 02/25/21 prednisone 20 mg tablet 60 mg PO DAILY 5 Days #15 tab 02/25/21 oxycodone 5 mg tablet 5 mg PO Q8H PRN 3 Days #10 tab 02/28/21 oxycodone 5 mg tablet 5 mg PO TID PRN #10 tab 02/28/21 acetaminophen 300 mg-codeine 30 mg 1 tab PO Q8H PRN #10 tab 04/06/21 tablet amlodipine 5 mg tablet 5 mg PO DAILY #30 tab 04/06/21 atorvastatin 40 mg tablet 40 mg PO DAILY #30 tab 04/06/21 clopidogrel 75 mg tablet (Plavix) 75 mg PO DAILY #30 tab 04/06/21 lidocaine HCl 4 % topical cream 1 appl TOPICAL BID PRN #120 g 04/06/21 (Aspercreme (lidocaine HCl)) metoprolol succinate 100 mg 100 mg PO DAILY #30 tab 04/06/21 tablet,extended release 24 hr walker #1 ea 04/06/21 gabapentin 600 mg tablet 300 mg PO TID #30 tab 05/18/21 glipizide 5 mg tablet 2.5 mg PO DAILY #30 tab 05/18/21 hydrochlorothiazide 25 mg tablet 25 mg PO DAILY #30 tab 05/18/21 lisinopril 40 mg tablet 40 mg PO DAILY #30 tab 05/18/21 metformin 500 mg tablet 500 mg PO BID #30 tab 05/18/21 amlodipine 5 mg tablet 5 mg PO DAILY #30 tab 06/24/21 atorvastatin 40 mg tablet 40 mg PO DAILY #30 tab 06/24/21 clopidogrel 75 mg tablet (Plavix) 75 mg PO DAILY #30 tab 06/24/21 gabapentin 300 mg capsule 300 mg PO TID #90 cap 06/24/21 glipizide 5 mg tablet 2.5 mg PO DAILY #30 tab 06/24/21 hydrochlorothiazide 25 mg tablet 25 mg PO DAILY #30 tab 06/24/21 lisinopril 40 mg tablet 40 mg PO DAILY #30 tab 06/24/21 metformin 500 mg tablet 500 mg PO BID #60 tab 06/24/21 metoprolol succinate 100 mg 100 mg PO DAILY #30 tab 06/24/21 tablet,extended release 24 hr acetaminophen 500 mg tablet 500 mg PO Q6H PRN #20 tab 09/23/21 (Tylenol Extra Strength) lidocaine 5 % topical patch 1 patch TOPICAL DAILY PRN #30 ea 09/23/21 (Lidoderm) MDD remove after 12 hours methocarbamol 500 mg tablet 500 mg PO TID PRN #14 tab 09/23/21 Allergies Allergy/AdvReac Type Severity Reaction Status Date / Time aspirin [ASPIRIN] Allergy Intermediate RASH Verified 02/28/21 17:09 Penicillins [PENICILLINS] Allergy Intermediate SWELLING Verified 02/28/21 17:09 tramadol [TRAMADOL] Allergy Unknown NAUSEA Verified 02/28/21 17:09 Review of Systems Review of Systems: Constitutional: No Fever, No Chills ENT/Mouth: No Ear Pain, No Nasal Congestion, No sore throat, No Rhinorrhea, No Swallowing Difficulty Cardiovascular: No Chest Pain, No SOB Respiratory: No Cough, No Sputum Gastrointestinal: No Nausea, No Vomiting, No Diarrhea, No Constipation, No Abdominal pain Genitourinary: No Dysuria, No Urinary Frequency, No Hematuria, No Urinary Incontinence, No Flank Pain Musculoskeletal: + joint pain, No Myalgias, No Joint Swelling Skin: No Skin Lesions, No rash Neuro: No Weakness, No Numbness, No Paresthesias, +Headache Yes all other systems are reviewed and are negative Neurologic: Denies Abnormal speech present [facility] Past Medical History Attestation statement: The following information was validated with the patient. Medical History Arthritis Diabetes No known health problems Retinopathy Social History Social History Advance Directives: Yes Advance Directives Information Provided: Yes Advance Directives on File: No Physical Exam ED Vital Signs: Vital Signs - 24 hr 09/23/21 09:38 Temperature 97 F Pulse Rate 79 Respiratory Rate 19 Blood Pressure 109/67 Pulse Oximetry 98 BMI result Body Mass Index 26.2 Const General: cooperative, healthy appearing, no acute distress, alert, awake and Physically active Orientation/consciousness: patient oriented x3 Limitations: no limitations HENMT Head: Yes normal to inspection and Yes atraumatic Ears: hearing grossly normal bilaterally, TM's normal bilaterally and mastoids normal General nose exam: Normal external nose present Face and sinus: Yes normal facial exam Throat: Yes posterior oropharynx normal, Yes tonsils normal, Yes uvula midline, No abnormal tonsil, No peritonsillar mass and No uvula laterally displaced Eyes General: appearance normal, both eyes and all related structures Pupils: Equal, round and reactive pupils present EOM: EOMs intact bilaterally Neck Other: no midline cervical spinous ttp. +right sided paraspinal ttp and right trapezius muscle ttp Neck: Yes normal visual inspection Resp Effort & Inspection: normal respiratory effort and no respiratory distress Cardio Rate: regular rate Heart sounds: S1 normal heart sound present and S2 normal heart sound present Peripheral pulses: radial pulses present General: Yes no CVA tenderness Back/Spine/Pelvis Other: no midline spinous ttp Back: no CVA tenderness Thoracic/Lumbar Spine: thoracic and lumbar spine normal to inspection Skin Rashes: no rashes Wounds: no wounds Neuro General: patient oriented x3, gait normal, tone normal, moves all extremities, no focal motor deficits and CN's II-XI intact bilaterally Cranial nerves: Yes CN's II-XII intact bilaterally, Yes Equal, round and reactive pupils present and Yes Bilaterally intact EOM present Cognition (Neuro): normal cognition Speech: No Abnormal speech present Gait exam (Neuro): Normal gait present Motor exam (neuro): 5/5 motor strength present throughout Extrem General: Yes normal to inspection Medical Decision Making MDM Narrative Medical decision making narrative: 66-year-old female with past medical history of arthritis, diabetes, retinopathy, presenting to the ED complaining of right-sided neck pain/spasming x2 weeks radiating to head and right shoulder. On exam vital signs stable, NAD/nontoxic, tenderness reproducible on exam. No midline spinous tenderness, no focal neuro deficits, strength intact throughout. Concern for MSK spasming/strain. Low concern for cervical dissection, cord compression or SAH plan: P.o. meds, PCP follow-up Medical Records Medical records reviewed: Yes I reviewed the patient's medical records. Lab Data Lab results reviewed: Yes I reviewed the patient's lab results. Discharge Plan Discharge Clinical Impression: Neck pain Patient Disposition: Home, Self-Care Instructions: Neck Pain (ED) Additional Instructions: Your pain is likely musculoskeletal Robaxin is a muscle relaxer, take at night as it makes you drowsy, do not drive, drink alcohol, or operate machinery while taking it Lidoderm patches are numbing patches, apply to painful area In addition take Tylenol at home If symptoms persist or worsen, pain becomes unbearable, you developed urinary retention or incontinence, or weakness return to the ED Es probable que de leon dolor sea musculoesquel?victor hugo Robaxin es un relajante muscular, t?peña por la noche ya que lo adormece, no conduzca, kym alcohol ni opere maquinaria mientras lo george Los parches de Lidoderm son parches anest?sicos, se aplican en el ?jeyson dolorida Adem?s george Tylenol en casa Si los s?ntomas persisten o empeoran, el dolor se vuelve insoportable, desarroll? retenci?n urinaria o incontinencia, o debilidad, regrese al servicio de urgencias. Prescriptions: New methocarbamol 500 mg tablet 500 mg PO TID PRN (Reason: pain (scale score 4-6)) Qty: 14 0RF acetaminophen [Tylenol Extra Strength] 500 mg tablet 500 mg PO Q6H PRN (Reason: pain or fever) Qty: 20 0RF lidocaine [Lidoderm] 5 % adhesive patch,medicated 1 patch topical DAILY MDD remove after 12 hours PRN (Reason: pain) Qty: 30 0RF Rx Instructions: leave on most painful area for up to 12 hrs No Action prednisone 20 mg tablet 60 mg PO DAILY 5 Days Qty: 15 0RF cyclobenzaprine 10 mg tablet 10 mg PO TID PRN (Reason: muscle spasm) Qty: 18 0RF Rx Instructions: side effect is drowsiness. Do not take at work or while driving. lidocaine 4 % adhesive patch,medicated 1 patch topical BID PRN (Reason: pain) Qty: 10 0RF acetaminophen-codeine 300-30 mg tablet 1 tab PO Q8H PRN (Reason: pain) Qty: 10 0RF lidocaine HCl [Aspercreme (lidocaine HCl)] 4 % cream 1 appl topical BID PRN (Reason: pain) Qty: 120 0RF metoprolol succinate 100 mg tablet extended release 24 hr 100 mg PO DAILY Qty: 30 3RF amlodipine 5 mg tablet 5 mg PO DAILY Qty: 30 3RF clopidogrel [Plavix] 75 mg tablet 75 mg PO DAILY Qty: 30 3RF atorvastatin 40 mg tablet 40 mg PO DAILY Qty: 30 3RF (DME) emerson Crespo See Rx Instructions .Route Qty: 1 0RF Rx Instructions: As directed oxycodone 5 mg tablet 5 mg PO Q8H PRN (Reason: pain) 3 Days Qty: 10 0RF oxycodone 5 mg tablet 5 mg PO TID PRN (Reason: pain) Qty: 10 0RF hydrochlorothiazide 25 mg tablet 25 mg PO DAILY Qty: 30 0RF glipizide 5 mg tablet 2.5 mg PO DAILY Qty: 30 0RF metformin 500 mg tablet 500 mg PO BID Qty: 30 0RF gabapentin 600 mg tablet 300 mg PO TID Qty: 30 0RF lisinopril 40 mg tablet 40 mg PO DAILY Qty: 30 0RF hydrochlorothiazide 25 mg tablet 25 mg PO DAILY Qty: 30 3RF glipizide 5 mg tablet 2.5 mg PO DAILY Qty: 30 3RF amlodipine 5 mg tablet 5 mg PO DAILY Qty: 30 3RF metformin 500 mg tablet 500 mg PO BID Qty: 60 3RF clopidogrel [Plavix] 75 mg tablet 75 mg PO DAILY Qty: 30 3RF metoprolol succinate 100 mg tablet extended release 24 hr 100 mg PO DAILY Qty: 30 3RF atorvastatin 40 mg tablet 40 mg PO DAILY Qty: 30 3RF lisinopril 40 mg tablet 40 mg PO DAILY Qty: 30 3RF gabapentin 300 mg capsule 300 mg PO TID Qty: 90 3RF Referrals: Physician,Unknown J [Primary Care Provider] - 2 days Print Language: Djiboutian
== END 2021-09-23 10:55 | disposition home or self-care (01) ==
PROVIDERS: Emergency Provider Emergency Medicine
DX: R25.2 Cramp and spasm (principal); M54.2 Cervicalgia; R51.9 Headache, unspecified; Z79.899 Other long term (current) drug therapy
CPT/HCPCS: 99283; 99284

== ENCOUNTER 2021-10-28 08:34 | Outpatient (REF) | payer MEDICARE, MEDICAID, SELFPAY ==
[2021-10-28 08:56] LABS: MANUAL DIFF FLAG NO
[2021-10-28 09:20] LABS: Basophils Percent Auto 0.5 % (0-2); Eosinophils Absolute Auto 0.1 X10*3/uL (0.0-0.4); Eosinophils Percent Auto 2.2 % (0-4); Hematocrit 36.8 % (37.0-47.0); Hemoglobin 11.6 g/dl (12.0-16.0); Imm Gran Abs Auto 0.03 X10*3/uL (0.00-0.03); Imm Gran Pct Auto 0.5 % (0.0-0.4); Lymphocytes Absolute Auto 1.4 X10*3/uL (1.2-4.9); Lymphocytes Percent Auto 21.4 % (20-40); Mean Corpuscular HGB Conc 31.5 g/dl (31.0-35.0); Mean Corpuscular Hemoglobin 26.7 pg (27.0-33.0); Mean Corpuscular Volume 84.8 fL (80.0-98.0); Mean Platelet Volume 11.2 fL (9.4-12.3); Monocytes Absolute Auto 0.5 X10*3/uL (0.1-1.2); Monocytes Percent Auto 8.4 % (2-11); Neutrophils Absolute Auto 4.2 x10*3/uL (2.0-8.3); Platelet Count 259 X10*3/uL (160-400); Red Blood Count 4.34 X10*6/uL (4.20-5.50); Red Cell Distribution Width 12.7 % (11.0-16.0); White Blood Count 6.3 X10*3/uL (4.8-10.8)
[2021-10-28 09:43] LABS: Estimated Average Glucose 315 mg/dL; Hemoglobin A1c % 12.6 %
[2021-10-28 09:49] LABS: Alanine Aminotransferase 21 U/L (0-31); Albumin Level 4.4 g/dL (3.5-5.0); Alkaline Phosphatase 110 U/L (39-117); Anion Gap 17 (12-20); Aspartate Amino Transferase 15 U/L (5-31); Bilirubin Total 1.1 mg/dL (0.0-1.0); Blood Urea Nitrogen 28 mg/dL (9-16); Calcium 10.4 mg/dL (8.4-10.2); Carbon Dioxide 23 mmol/L (22-29); Chloride 102 mmol/L (96-108); Cholesterol 114 mg/dL; Estimated Glomerular Filt Rate > 60; Glucose Fasting 300 mg/dL (60-99); HDL Cholesterol 55 mg/dL; LDL Cholesterol Calculated 31 mg/dl; Potassium 5.1 mmol/L (3.3-5.1); Sodium 137 mmol/L (135-145); Triglycerides 143 mg/dL
[2021-10-28 10:11] LABS: TSH reflex Free T4 2.61 uIU/mL (0.32-4.0)
[2021-10-28 11:07] LABS: Appearance Urine CLEAR; Color Urine YELLOW; Glucose Urine UA 100 MG/DL (NEG); Leukocyte Esterase Urine NEG (NEG); Nitrite Urine NEG (NEG); Specific Gravity - Urine 1.025 (1.005-1.025); Urine Blood NEG (NEG); Urine Ketones 5 MG/DL (NEG); Urine Protein NEG (NEG-TRACE)
[2021-10-28 12:09] LABS: Creatinine Urine 130.22 mg/dL; Microalbum/Creatinine Ratio Ur 19.1 ug/mg cr
== END 2021-10-28 08:35 | disposition home or self-care (01) ==
LOC: HO.LAB 08:34
PROVIDERS: Visit Provider Nurse Practitioner Family
DX: E11.9 Type 2 diabetes mellitus without complications (principal); I10 Essential (primary) hypertension; E78.00 Pure hypercholesterolemia, unspecified
CPT/HCPCS: 36415; 80053; 80061; 81003; 82043; 83036; 84443; 85025

== ENCOUNTER 2022-02-01 11:33 | Emergency (ER) | payer MEDICARE, MEDICAID, SELFPAY ==
--- NOTE | ~2022-02-01 | CT_ITS ---
EXAMINATION: CT ABDOMEN AND PELVIS WITHOUT CONTRAST CLINICAL INFORMATION: LLQ abd pain, N/V/D. . COMPARISON: No pertinent prior studies are available for comparison. TECHNIQUE: Multidetector volumetric imaging was performed from the superior aspect of the liver through the pubic symphysis without contrast per request. Sagittal and coronal reformatted images were obtained on the technologist workstation. This CT examination was performed using dose optimization techniques as appropriate, variously including the following: *Automated exposure control *Adjustment of mA and/or kV according to patient size (this includes techniques or standardized protocols for targeted exams where dose is matched to indication/reason for exam; i.e. extremities or head) *Use of iterative reconstruction technique DLP: 477 mGy-cm. FINDINGS: LUNG BASES: The visualized lung bases are unremarkable. LIVER, GALLBLADDER, BILIARY TREE: The non-contrast liver is normal in size, shape, and attenuation. Tiny calcified granuloma in segment 3 of the liver. No focal hepatic lesion or biliary ductal dilatation is present. The gallbladder is not visualized and presumably surgically absent. PANCREAS: Unremarkable. SPLEEN: Unremarkable. ADRENAL GLANDS: Unremarkable. KIDNEYS AND URETERS: The kidneys are normal in size, shape, and attenuation. No hydronephrosis, hydroureter, or calculi seen. No perinephric stranding. BLADDER: Unremarkable. GASTROINTESTINAL TRACT: There is scattered diverticulosis more so in the sigmoid colon where there is focal colonic wall thickening and pericolonic inflammatory changes likely reflecting focal diverticulitis. No diverticular abscess or obstructive change. No significant free air or free fluid. ABDOMINAL WALL: No significant hernia is appreciated. LYMPHOVASCULAR STRUCTURES: No lymphadenopathy. The aorta is unremarkable.. PELVIC VISCERA: Presumably surgically absent OSSEUS STRUCTURES: Unremarkable. CT/CT abdomen pelvis wo con IMPRESSION: Focal diverticulitis in the sigmoid colon.
[2022-02-01 11:55] VITALS: BP 132/72; PULSE 89; RESP 18; TEMP 36.1; O2SAT 99; BMI 26.2
[2022-02-01 12:30] LABS: MANUAL DIFF FLAG NO
[2022-02-01 12:32] LABS: Basophils Percent Auto 0.5 % (0-2); Eosinophils Absolute Auto 0.1 X10*3/uL (0.0-0.4); Eosinophils Percent Auto 0.6 % (0-4); Hematocrit 34.7 % (37.0-47.0); Hemoglobin 11.2 g/dl (12.0-16.0); Imm Gran Abs Auto 0.03 X10*3/uL (0.00-0.03); Imm Gran Pct Auto 0.4 % (0.0-0.4); Lymphocytes Absolute Auto 1.4 X10*3/uL (1.2-4.9); Lymphocytes Percent Auto 16.4 % (20-40); Mean Corpuscular HGB Conc 32.3 g/dl (31.0-35.0); Mean Corpuscular Hemoglobin 26.9 pg (27.0-33.0); Mean Corpuscular Volume 83.2 fL (80.0-98.0); Mean Platelet Volume 10.2 fL (9.4-12.3); Monocytes Absolute Auto 0.7 X10*3/uL (0.1-1.2); Monocytes Percent Auto 7.8 % (2-11); Neutrophils Absolute Auto 6.3 x10*3/uL (2.0-8.3); Neutrophils Percent Auto 74.3 % (45-73); Platelet Count 262 X10*3/uL (160-400); Red Blood Count 4.17 X10*6/uL (4.20-5.50); Red Cell Distribution Width 12.7 % (11.0-16.0); White Blood Count 8.4 X10*3/uL (4.8-10.8)
[2022-02-01 12:44] LABS: COVID-19 Test Negative (Negative); IDNOW Serial# 16C4AD1C
[2022-02-01 13:00] LABS: Alanine Aminotransferase 24 U/L (0-31); Albumin Level 4.5 g/dL (3.5-5.0); Alkaline Phosphatase 107 U/L (39-117); Anion Gap 17 (12-20); Aspartate Amino Transferase 15 U/L (5-31); Blood Urea Nitrogen 29 mg/dL (9-16); Calcium 8.6 mg/dL (8.4-10.2); Carbon Dioxide 21 mmol/L (22-29); Chloride 103 mmol/L (96-108); Creatinine Clr Calc Pharmacy 42.5; Estimated Glomerular Filt Rate 54; Glucose Random 159 mg/dL (60-115); Sodium 137 mmol/L (135-145)
[2022-02-01 21:43] LABS: Lipase 21 U/L (8-78); Magnesium 1.5 mg/dL (1.6-2.6)
[2022-02-01] MEDS: 0.9 % Sodium Chloride 1,000 ML 999 ML IV (21:50)
[2022-02-01] MEDS: ondansetron HCL 4 MG/2 ML VIAL IVPUSH (21:51)
[2022-02-01 21:56] LABS: Appearance Urine CLEAR; Color Urine YELLOW; Glucose Urine UA NEG (NEG); Leukocyte Esterase Urine NEG (NEG); Nitrite Urine NEG (NEG); PH 5.5 (5.0-8.0); Specific Gravity - Urine 1.025 (1.005-1.025); Urine Blood NEG (NEG); Urine Ketones 40 MG/DL (NEG); Urine Protein NEG (NEG-TRACE)
--- NOTE | 2022-02-01 22:31 | ED.ABDPAIN ---
HPI - Abdominal Pain General Chief Complaint: Abdominal Pain Stated Complaint: Lower abd pain Time Seen by Provider: 02/01/22 20:15 Source: patient Mode of arrival: ambulatory History of Present Illness HPI narrative: 66-year-old female with past medical history of arthritis, diabetes, retinopathy, presenting to the ED complaining of lower abdominal pain, nausea, vomiting, and diarrhea x1 week. Reports decreased p.o. intake. Admits was seen urgent care yesterday and recommended to come to the ED for CT scan. Denies fever, chills, dysuria/hematuria, flank pain, suspicious food intake, recent antibiotics, recent travel, flank pain MD elicited complaint: abdominal pain Onset (ago): week(s) Related Data Previous Rx's Medication Instructions Recorded walker #1 ea 04/06/21 methocarbamol 500 mg tablet 500 mg PO TID PRN pain (scale 09/23/21 score 4-6) #14 tabs acetaminophen 500 mg tablet 500 mg PO Q6H PRN pain or fever 10/27/21 (Tylenol Extra Strength) #20 tabs amlodipine 5 mg tablet 5 mg PO DAILY #30 tabs 10/27/21 atorvastatin 40 mg tablet 40 mg PO DAILY Hyperlipidemia #30 10/27/21 tabs cholestyramine-aspartame 4 gram 4 g PO TID #60 ea 10/27/21 oral powder for susp in a packet (Prevalite) clopidogrel 75 mg tablet (Plavix) 75 mg PO DAILY #30 tabs 10/27/21 gabapentin 300 mg capsule 300 mg PO TID #90 caps 10/27/21 lidocaine 5 % topical patch 1 patch topical DAILY PRN pain #30 10/27/21 (Lidoderm) ea lidocaine HCl 4 % topical cream 1 appl topical BID PRN pain #120 10/27/21 (Aspercreme (lidocaine HCl)) grams lisinopril 40 mg tablet 40 mg PO DAILY #30 tabs 10/27/21 metoprolol succinate 100 mg 100 mg PO DAILY #30 tabs 10/27/21 tablet,extended release 24 hr blood sugar diagnostic (FreeStyle #100 ea 11/10/21 Lite Strips) blood-glucose meter (FreeStyle #1 ea 11/10/21 Lite Meter kit) glipizide 5 mg tablet 5 mg PO DAILY #90 tabs 11/10/21 lancets 28 gauge (FreeStyle #100 ea 11/10/21 Lancets) metformin 1,000 mg tablet 1,000 mg PO BID #180 tabs 11/10/21 hydrochlorothiazide 25 mg tablet 25 mg PO DAILY #30 tabs 01/21/22 ciprofloxacin HCl 500 mg tablet 500 mg PO Q12H 7 days #14 tabs 02/01/22 (Cipro) metronidazole 500 mg tablet 500 mg PO Q8H 7 days #21 tabs 02/01/22 ondansetron 4 mg disintegrating 4 mg PO Q8H PRN nausea and 02/01/22 tablet vomiting #10 tabs Allergies Allergy/AdvReac Type Severity Reaction Status Date / Time aspirin [ASPIRIN] Allergy Intermediate RASH Verified 10/27/21 13:40 Penicillins [PENICILLINS] Allergy Intermediate SWELLING Verified 10/27/21 13:40 tramadol [TRAMADOL] Allergy Unknown NAUSEA Verified 10/27/21 13:40 Review of Systems Review of Systems Constitutional: No Fever, No Chills, No Night Sweats, No Fatigue, No Malaise ENT/Mouth: No Hearing loss, No Ear Pain, No Nasal Congestion, No sore throat, No Rhinorrhea, No Swallowing Difficulty Eyes: No Eye Pain, No Swelling, No Redness Cardiovascular: No Chest Pain, No SOB, No Palpitations Respiratory: No Cough, No Sputum, No Dyspnea Gastrointestinal: + Nausea, + Vomiting, + Diarrhea, No Constipation, + Abdominal pain, No Hematochezia, No Melena Genitourinary: No irregular bleeding, No Dysuria, No Urinary Frequency, No Hematuria, No Urinary Incontinence/retention Musculoskeletal: No joint pain, No Myalgias, No Joint Swelling Skin: No Skin Lesions, No rash Neuro: No Weakness, No Dizziness, No Headache Yes all other systems are reviewed and are negative Constitutional: Reports as per [facility] Past Medical History Attestation statement: The following information was validated with the patient. Medical History (Updated 02/01/22 @ 22:51 by DESIRE Cardona) Arthritis Diabetes No known health problems Retinopathy Surgical History (Updated 10/27/21 @ 13:48 by MARY ANN Lanza) History of 2 sections History of cholecystectomy History of hysterectomy Social History Social History (Updated 10/27/21 @ 13:07 by BALAJI Cervantes) Housing: Apartment Alcohol intake: never Patient Tobacco Use Status: Never used Tobacco e-Cigarette/Vaping Use: Never Used Second Hand Smoke Exposure: No Advance Directives: No Advance Directives Information Provided: No service: No Current occupational status: disabled Cognitive needs: Yes (walker,cane) Hearing needs: No Vision needs: Yes (glasses) Physical Exam ED Vital Signs: Vital Signs - 24 hr 02/01/22 11:55 Temperature 97.0 F Pulse Rate 89 Respiratory Rate 18 Blood Pressure 132/72 Pulse Oximetry 99 Oxygen Delivery Method Room Air BMI result Body Mass Index 26.2 Const General: cooperative, healthy appearing and no acute distress Orientation/consciousness: patient oriented x3 Limitations: no limitations HENMT Head: Yes normal to inspection and Yes atraumatic Ears: hearing grossly normal bilaterally General nose exam: Normal external nose present Face and sinus: Yes normal facial exam Eyes General: appearance normal, both eyes and all related structures EOM: EOMs intact bilaterally Neck Neck: Yes normal visual inspection and Yes no meningeal signs Resp Effort & Inspection: normal respiratory effort and no respiratory distress Auscultation: clear to auscultation bilaterally Cardio Rate: regular rate Heart sounds: S1 normal heart sound present and S2 normal heart sound present GI Inspection: Yes normal to inspection Palpation (GI): Soft to palpation, Tenderness to palpation present (GI) in the LLQ; with no rebound tenderness, no guarding and not rigid General: Yes no CVA tenderness Back/Spine/Pelvis Back: no CVA tenderness Skin Rashes: no rashes Wounds: no wounds Neuro General: patient oriented x3, tone normal and no meningeal signs Gait exam (Neuro): Normal gait present Extrem General: Yes normal to inspection Course Course Course Narrative: -1047--no leukocytosis. H/H at patient's baseline. BUN chronically elevated > slightly higher than prior likely from dehydration. Magnesium 1.5 > p.o. repletion ordered -total bili mildly elevated to 2.0 -UA with 40 ketones/not infected CT abdomen pelvis wo con IMPRESSION: Focal diverticulitis in the sigmoid colon. -patient tolerated p.o. in the ED Results discussed with patient including worrisome signs and symptoms and strict return precautions, and when to return to the emergency department. They verbalized understanding and feel safe for discharge at this time. MDM - Abdominal Pain MDM Narrative Medical decision making narrative: 66-year-old female with past medical history of arthritis, diabetes, retinopathy, presenting to the ED complaining of lower abdominal pain, nausea, vomiting, and diarrhea x1 week. On exam vital signs stable, NAD, nontoxic appearing, abdomen soft with LLQ tenderness, no rebound or guarding, no CVA tenderness. Concern for gastroenteritis vs food poisoning vs dehydration vs diverticulitis. Rule out UTI. Lower concern for appendicitis/pancreatitis or cholecystitis Plan: Labs, UA, CT AP, IVF, re-evaluate Differential Diagnosis Differential diagnosis: Likely abdominal pain, diverticulitis, gastroenteritis and gastritis Medical Records Attestation: I reviewed the patient's medical records. Lab Data Attestation: I reviewed the patient's lab results. Result diagrams: 02/01/22 12:24 02/01/22 12:24 Labs: Lab Results 02/01/22 02/01/22 02/01/22 Range/Units 12:24 12:24 12:24 WBC 8.4 (4.8-10.8) X10*3/uL RBC 4.17 L (4.20-5.50) X10*6/uL Hgb 11.2 L (12.0-16.0) g/dl Hct 34.7 L (37.0-47.0) % MCV 83.2 (80.0-98.0) fL MCH 26.9 L (27.0-33.0) pg MCHC 32.3 (31.0-35.0) g/dl RDW 12.7 (11.0-16.0) % Plt Count 262 (160-400) X10*3/uL MPV 10.2 (9.4-12.3) fL Immature Gran % (Auto) 0.4 (0.0-0.4) % Neut % (Auto) 74.3 H (45-73) % Lymph % (Auto) 16.4 L (20-40) % [place] % (Auto) 7.8 (2-11) % Eos % (Auto) 0.6 (0-4) % Baso % (Auto) 0.5 (0-2) % Lymph # (Auto) 1.4 (1.2-4.9) X10*3/uL [place] # (Auto) 0.7 (0.1-1.2) X10*3/uL Eos # (Auto) 0.1 (0.0-0.4) X10*3/uL Baso # (Auto) 0.0 (0.0-0.2) X10*3/uL Abs Immat Gran (auto) 0.03 (0.00-0.03) X10*3/uL Absolute Neuts (auto) 6.3 (2.0-8.3) x10*3/uL Absolute Nucleated RBC 0.000 (0.0-0.012) X10*3/uL Nucleated RBC % (auto) 0.0 (0.0-0.2) /100WBC Sodium 137 (135-145) mmol/L Potassium 4.0 D (3.3-5.1) mmol/L Chloride 103 (96-108) mmol/L Carbon Dioxide 21 L (22-29) mmol/L Anion Gap 17 (12-20) BUN 29 H (9-16) mg/dL Creatinine 1.03 (0.5-1.4) mg/dL Estim Creat Clear Calc 42.5 Estimated GFR 54 Random Glucose 159 H (60-115) mg/dL Calcium 8.6 D (8.4-10.2) mg/dL Magnesium 1.5 L (1.6-2.6) mg/dL Total Bilirubin 2.0 H (0.0-1.0) mg/dL AST 15 (5-31) U/L ALT 24 (0-31) U/L Alkaline Phosphatase 107 (39-117) U/L Total Protein 7.0 (6.5-8.0) g/dL Albumin 4.5 (3.5-5.0) g/dL Lipase 21 (8-78) U/L Urine Color Urine Appearance Urine pH (5.0-8.0) Ur Specific [place] (1.005-1.025) Urine Protein (NEG-TRACE) MG/DL Urine Glucose (UA) (NEG) MG/DL Urine Ketones (NEG) MG/DL Urine Blood (NEG) Urine Nitrite (NEG) Ur Leukocyte Esterase (NEG) COVID-19 (SHEILA) Negative (Negative) COVID-19 Clin Com See Note 02/01/22 Range/Units 21:47 WBC (4.8-10.8) X10*3/uL RBC (4.20-5.50) X10*6/uL Hgb (12.0-16.0) g/dl Hct (37.0-47.0) % MCV (80.0-98.0) fL MCH (27.0-33.0) pg MCHC (31.0-35.0) g/dl RDW (11.0-16.0) % Plt Count (160-400) X10*3/uL MPV (9.4-12.3) fL Immature Gran % (Auto) (0.0-0.4) % Neut % (Auto) (45-73) % Lymph % (Auto) (20-40) % [place] % (Auto) (2-11) % Eos % (Auto) (0-4) % Baso % (Auto) (0-2) % Lymph # (Auto) (1.2-4.9) X10*3/uL [place] # (Auto) (0.1-1.2) X10*3/uL Eos # (Auto) (0.0-0.4) X10*3/uL Baso # (Auto) (0.0-0.2) X10*3/uL Abs Immat Gran (auto) (0.00-0.03) X10*3/uL Absolute Neuts (auto) (2.0-8.3) x10*3/uL Absolute Nucleated RBC (0.0-0.012) X10*3/uL Nucleated RBC % (auto) (0.0-0.2) /100WBC Sodium (135-145) mmol/L Potassium (3.3-5.1) mmol/L Chloride (96-108) mmol/L Carbon Dioxide (22-29) mmol/L Anion Gap (12-20) BUN (9-16) mg/dL Creatinine (0.5-1.4) mg/dL Estim Creat Clear Calc Estimated GFR Random Glucose (60-115) mg/dL Calcium (8.4-10.2) mg/dL Magnesium (1.6-2.6) mg/dL Total Bilirubin (0.0-1.0) mg/dL AST (5-31) U/L ALT (0-31) U/L Alkaline Phosphatase (39-117) U/L Total Protein (6.5-8.0) g/dL Albumin (3.5-5.0) g/dL Lipase (8-78) U/L Urine Color YELLOW Urine Appearance CLEAR Urine pH 5.5 (5.0-8.0) Ur Specific [place] 1.025 (1.005-1.025) Urine Protein NEG (NEG-TRACE) MG/DL Urine Glucose (UA) NEG (NEG) MG/DL Urine Ketones 40 (NEG) MG/DL Urine Blood NEG (NEG) Urine Nitrite NEG (NEG) Ur Leukocyte Esterase NEG (NEG) COVID-19 (SHEILA) (Negative) COVID-19 Clin Com Discharge Plan Discharge Clinical Impression: Diverticulitis Patient Disposition: Home, Self-Care Instructions: Diverticulitis (ED), Diverticulitis Diet (ED) Additional Instructions: You have diverticulitis. You also are showing signs of dehydration. Make sure your tolerating enough liquids at home. The ciprofloxacin and Flagyl are antibiotics please take as prescribed. Zofran as antinausea medication, take as needed for nausea and vomiting If symptoms persist or worsen please return to the emergency department, if you developed fever, persistent nausea/vomiting or are unable to tolerate by mouth return to the ED Please have close follow-up with her doctor Tienes diverticulitis. Tambi?n est? mostrando signos de deshidrataci?n. Aseg?rese de tolerar suficientes l?quidos en casa. La ciprofloxacina y Flagyl son antibi?ticos, t?melos seg?n lo prescrito. Zofran cristiane medicamento contra las n?useas, t?peña seg?n sea necesario para las n?useas y los v?mitos Si los s?ntomas persisten o empeoran, regrese al departamento de emergencias, si desarroll? fiebre, n?useas/v?mitos persistentes o no puede tolerar por v?a oral, regrese al servicio de urgencias. Por favor, tenga un seguimiento cercano con de leon m?dico. Prescriptions: New ciprofloxacin HCl [Cipro] 500 mg tablet 500 mg PO Q12H 7 Days Qty: 14 0RF metronidazole 500 mg tablet 500 mg PO Q8H 7 Days Qty: 21 0RF ondansetron 4 mg tablet,disintegrating 4 mg PO Q8H PRN (Reason: nausea and vomiting) Qty: 10 0RF No Action metformin 1,000 mg tablet 1,000 mg PO BID Qty: 180 0RF glipizide 5 mg tablet 5 mg PO DAILY Qty: 90 0RF (DME) FreeStyle Lite Strips Strip See Rx Instructions .Route Qty: 100 0RF Rx Instructions: check BS 1-2x/day (DME) blood-glucose meter [FreeStyle Lite Meter] Kit See Rx Instructions .Route Qty: 1 0RF Rx Instructions: check BS 2-3x/day (DME) lancets [FreeStyle Lancets] 28 gauge misc See Rx Instructions .Route Qty: 100 0RF Rx Instructions: check BS 1-2x/day hydrochlorothiazide 25 mg tablet 25 mg PO DAILY Qty: 30 2RF (DME) walker Misc See Rx Instructions .Route Qty: 1 0RF Rx Instructions: As directed methocarbamol 500 mg tablet 500 mg PO TID PRN (Reason: pain (scale score 4-6)) Qty: 14 0RF lidocaine [Lidoderm] 5 % adhesive patch,medicated 1 patch topical DAILY MDD remove after 12 hours PRN (Reason: pain) Qty: 30 0RF Rx Instructions: leave on most painful area for up to 12 hrs lidocaine HCl [Aspercreme (lidocaine HCl)] 4 % cream 1 appl topical BID PRN (Reason: pain) Qty: 120 0RF acetaminophen [Tylenol Extra Strength] 500 mg tablet 500 mg PO Q6H PRN (Reason: pain or fever) Qty: 20 0RF amlodipine 5 mg tablet 5 mg PO DAILY Qty: 30 3RF atorvastatin 40 mg tablet 40 mg PO DAILY Qty: 30 3RF clopidogrel [Plavix] 75 mg tablet 75 mg PO DAILY Qty: 30 3RF lisinopril 40 mg tablet 40 mg PO DAILY Qty: 30 3RF gabapentin 300 mg capsule 300 mg PO TID Qty: 90 3RF metoprolol succinate 100 mg tablet extended release 24 hr 100 mg PO DAILY Qty: 30 3RF cholestyramine-aspartame [Prevalite] 4 gram powder in packet 4 g PO TID Qty: 60 1RF Rx Instructions: administer w/meal; avoid other meds within 1hr before or 4-6hr after dose Referrals: Physician,Unknown J [Primary Care Provider] - 3 days Print Language: Portuguese
[2022-02-01 23:32] VITALS: BP 131/69; PULSE 77; RESP 18; TEMP 35.9; O2SAT 100
== END 2022-02-01 23:36 | disposition home or self-care (01) ==
PROVIDERS: Physician Assistant; Emergency Provider Internal Medicine
DX: K57.32 Diverticulitis of large intestine without perforation or abscess without bleeding (principal); Z20.822 Contact with and (suspected) exposure to COVID-19; Z79.899 Other long term (current) drug therapy
CPT/HCPCS: 74176; 80053; 81003; 83690; 83735; 85025; 87635; 96361; 96374; 99284; J2405

== ENCOUNTER 2022-02-10 19:07 | Emergency (ER) | payer MEDICARE, MEDICAID, SELFPAY ==
[2022-02-10 19:52] VITALS: BP 152/75; PULSE 83; RESP 18; TEMP 36.8; O2SAT 97; BMI 26.2
[2022-02-10 20:39] LABS: MANUAL DIFF FLAG NO
[2022-02-10 20:46] LABS: Basophils Percent Auto 0.3 % (0-2); Eosinophils Absolute Auto 0.3 X10*3/uL (0.0-0.4); Eosinophils Percent Auto 3.6 % (0-4); Hematocrit 33.1 % (37.0-47.0); Hemoglobin 10.8 g/dl (12.0-16.0); Imm Gran Abs Auto 0.05 X10*3/uL (0.00-0.03); Imm Gran Pct Auto 0.5 % (0.0-0.4); Lymphocytes Absolute Auto 1.8 X10*3/uL (1.2-4.9); Lymphocytes Percent Auto 19.8 % (20-40); Mean Corpuscular HGB Conc 32.6 g/dl (31.0-35.0); Mean Corpuscular Hemoglobin 27.1 pg (27.0-33.0); Mean Corpuscular Volume 83.2 fL (80.0-98.0); Mean Platelet Volume 10.4 fL (9.4-12.3); Monocytes Absolute Auto 0.7 X10*3/uL (0.1-1.2); Monocytes Percent Auto 7.3 % (2-11); Neutrophils Absolute Auto 6.3 x10*3/uL (2.0-8.3); Neutrophils Percent Auto 68.5 % (45-73); Platelet Count 281 X10*3/uL (160-400); Red Blood Count 3.98 X10*6/uL (4.20-5.50); Red Cell Distribution Width 12.9 % (11.0-16.0); White Blood Count 9.2 X10*3/uL (4.8-10.8)
[2022-02-10 21:03] LABS: Alanine Aminotransferase 40 U/L (0-31); Albumin Level 4.5 g/dL (3.5-5.0); Alkaline Phosphatase 80 U/L (39-117); Anion Gap 14 (12-20); Aspartate Amino Transferase 22 U/L (5-31); Bilirubin Total 0.5 mg/dL (0.0-1.0); Blood Urea Nitrogen 19 mg/dL (9-16); Calcium 9.1 mg/dL (8.4-10.2); Carbon Dioxide 27 mmol/L (22-29); Chloride 105 mmol/L (96-108); Creatinine Clr Calc Pharmacy 49.2; Estimated Glomerular Filt Rate > 60; Glucose Random 169 mg/dL (60-115); Potassium 4.2 mmol/L (3.3-5.1); Sodium 142 mmol/L (135-145); Total Protein 6.8 g/dL (6.5-8.0)
[2022-02-11 01:44] VITALS: BP 136/67; PULSE 76; RESP 18; TEMP 36.6; O2SAT 97
[2022-02-11 04:22] VITALS: BP 124/69; PULSE 78; RESP 18; O2SAT 97
[2022-02-11 04:44] LABS: Appearance Urine HAZY; Color Urine YELLOW; Glucose Urine UA NEG (NEG); Leukocyte Esterase Urine 1+ (NEG); Nitrite Urine NEG (NEG); UACC Culture Trigger YES; Urine Blood NEG (NEG); Urine Ketones NEG (NEG); Urine Protein NEG (NEG-TRACE)
[2022-02-11 04:50] LABS: Bacteria Urine TRACE /LPF; Mucus Urine 1+ /LPF; RBC Urine 0 /HPF (0); Squamous Epithelial Cell Urine 2+ /LPF
--- NOTE | 2022-02-11 04:57 | ED.GIBLEED ---
HPI - GI Bleed General Chief complaint: Abdominal Pain Stated complaint: Rectal Bleeding Time Seen by Provider: 02/11/22 04:14 Source: patient Mode of arrival: ambulatory Limitations: language barrier ([place] Islander speaking only, automotive parts interpreter used) History of Present Illness HPI Narrative: 66-year-old female who presents emergency department for evaluation of bright red blood per rectum. The patient was seen in the emergency department on 02/01/2022 (10 days prior to evaluation) for abdominal pain. The patient was diagnosed with sigmoid diverticulitis. She was treated with ciprofloxacin and metronidazole with improvement of her symptoms. She states that on Tuesday (3 days prior to evaluation) she noticed dark stool then bright red blood per rectum and when she wiped. She states she has had 1 or 2 episodes of bright red blood per rectum since that time. She also states that she has had occasional episodes of loose diarrheal stool. She denied fever, chills, chest pain, shortness of breath. She has had nausea with occasional episodes of vomiting. MD complaint: blood streaked emesis Onset (ago): day(s) (3) Relieving factors: none Exacerbating factors: none Context: other (Diverticulitis diagnosed 02/01/2022) Associated symptoms: nausea and vomiting Treatments Prior to Arrival: none Related Data Previous Rx's Medication Instructions Recorded walker #1 ea 04/06/21 methocarbamol 500 mg tablet 500 mg PO TID PRN pain (scale 09/23/21 score 4-6) #14 tabs acetaminophen 500 mg tablet 500 mg PO Q6H PRN pain or fever 10/27/21 (Tylenol Extra Strength) #20 tabs amlodipine 5 mg tablet 5 mg PO DAILY #30 tabs 10/27/21 atorvastatin 40 mg tablet 40 mg PO DAILY Hyperlipidemia #30 10/27/21 tabs cholestyramine-aspartame 4 gram 4 g PO TID #60 ea 10/27/21 oral powder for susp in a packet (Prevalite) clopidogrel 75 mg tablet (Plavix) 75 mg PO DAILY #30 tabs 10/27/21 gabapentin 300 mg capsule 300 mg PO TID #90 caps 10/27/21 lidocaine 5 % topical patch 1 patch topical DAILY PRN pain #30 10/27/21 (Lidoderm) ea lidocaine HCl 4 % topical cream 1 appl topical BID PRN pain #120 10/27/21 (Aspercreme (lidocaine HCl)) grams lisinopril 40 mg tablet 40 mg PO DAILY #30 tabs 10/27/21 metoprolol succinate 100 mg 100 mg PO DAILY #30 tabs 10/27/21 tablet,extended release 24 hr blood sugar diagnostic (FreeStyle #100 ea 11/10/21 Lite Strips) blood-glucose meter (FreeStyle #1 ea 11/10/21 Lite Meter kit) lancets 28 gauge (FreeStyle #100 ea 11/10/21 Lancets) hydrochlorothiazide 25 mg tablet 25 mg PO DAILY #30 tabs 01/21/22 ciprofloxacin HCl 500 mg tablet 500 mg PO Q12H 7 days #14 tabs 02/01/22 (Cipro) metronidazole 500 mg tablet 500 mg PO Q8H 7 days #21 tabs 02/01/22 ondansetron 4 mg disintegrating 4 mg PO Q8H PRN nausea and 02/01/22 tablet vomiting #10 tabs glipizide 5 mg tablet 5 mg PO DAILY #90 tabs 02/08/22 metformin 1,000 mg tablet 1,000 mg PO BID #180 tabs 02/08/22 Allergies Allergy/AdvReac Type Severity Reaction Status Date / Time aspirin [ASPIRIN] Allergy Intermediate RASH Verified 02/10/22 19:52 Penicillins [PENICILLINS] Allergy Intermediate SWELLING Verified 02/10/22 19:52 tramadol [TRAMADOL] Allergy Unknown NAUSEA Verified 02/10/22 19:52 Review of Systems Review of Systems: Yes all other systems are reviewed and are negative PMFSH Past Medical History Medical History Arthritis Diabetes No known health problems Retinopathy Surgical History History of 2 sections History of cholecystectomy History of hysterectomy Social History Social History Housing: Apartment Alcohol intake: never Patient Tobacco Use Status: Never used Tobacco e-Cigarette/Vaping Use: Never Used Second Hand Smoke Exposure: No Use of substances other than those prescribed or required for medical reasons: No Advance Directives: No Advance Directives Information Provided: Yes service: No Current occupational status: disabled Cognitive needs: Yes (walker,cane) Hearing needs: No Vision needs: Yes (glasses) Physical Exam Vital Signs: Vital Signs: Last Vital Signs Temp 97.8 F 02/11/22 01:44 Pulse 78 02/11/22 04:22 Resp 18 02/11/22 04:22 BP 124/69 02/11/22 04:22 Pulse Ox 97 02/11/22 04:22 O2 Del Method 02/11/22 04:22 BMI result Body Mass Index 26.2 Const: General: cooperative and no acute distress Orientation/consciousness: oriented to person and oriented to place Limitations: no limitations HEENT: Head: Yes normal to inspection, Yes normocephalic and Yes atraumatic Ears: external ears normal General nose exam: Normal external nose present Face and sinus: Yes normal facial exam Mouth: Normal oral and palatal mucosa present Throat: Yes posterior oropharynx normal Eyes: General: appearance normal, both eyes and all related structures Pupils: Equal, round and reactive pupils present Neck: Neck: Yes normal visual inspection, Yes no lymphadenopathy, Yes trachea midline and Yes supple Chest: Chest palpation & inspection: normal inspection of the chest and normal palpation of entire chest wall Resp: Effort & Inspection: normal respiratory effort and able to speak in complete sentences Auscultation: clear to auscultation bilaterally Cardio: Rate: regular rate Rhythm: regular rhythm Heart sounds: S1 normal heart sound present, S2 normal heart sound present and no murmurs GI: Inspection: Yes normal to inspection Palpation (GI): Soft to palpation, Tenderness to palpation present (GI) in the LLQ (Mild), in the RLQ (Mild) and suprapubicly (Mild) and no guarding Auscultation: normal bowel sounds Rectal Exam - Female: visual inspection normal, normal sphincter tone and heme negative stool (Brown, soft stool) : General: Yes no CVA tenderness Back/Spine/Pelvis: Back: no CVA tenderness Skin: General skin exam: no rashes or lesions noted Neuro: General: oriented to person and oriented to place Cranial nerves: Yes CN's II-XII intact bilaterally and Yes Equal, round and reactive pupils present Cognition (Neuro): normal cognition Motor exam (neuro): 5/5 motor strength present throughout Extrem: General: Yes normal to inspection Psych: Appearance: grossly normal Speech and movement: Normal speech and movement present Affect: normal affect Attitude: cooperative Thought process: Normal thought process present Thought content: Normal thought content present Course Course Course Narrative: 66-year-old female who was diagnosed with sigmoid diverticulitis 10 days prior and completed a course of metronidazole and ciprofloxacin. The patient has noted bright red blood per rectum over the past 3 days. She has had loose diarrheal stools as well. She has had associated nausea and vomiting. She states that her abdominal pain however is improved after completing the course of antibiotics. Vital signs revealed an elevated blood pressure of 152/75. Patient's abdominal exam did reveal lower abdominal tenderness which was mild. Rectal examination revealed soft brown stool which was Hemoccult negative. Laboratory evaluation revealed anemia with an H&H of 10 and 33 which is chronic. Patient's BUN was slightly elevated at 19, LFTs were normal. At this time, I believe the patient's bright red blood per rectum may be related to her diverticulitis, it is also possible that she may have internal hemorrhoids or polyps. I did discuss these possibilities with the patient. I do not think the patient needs be hospitalist at this time. Patient was given printed and verbal instructions and discharged home MDM - GI Bleed Lab Data Result diagrams: 02/10/22 20:33 02/10/22 20:33 Labs: Lab Results 02/10/22 02/10/22 02/11/22 Range/Units 20:33 20:33 04:39 WBC 9.2 (4.8-10.8) X10*3/uL RBC 3.98 L (4.20-5.50) X10*6/uL Hgb 10.8 L (12.0-16.0) g/dl Hct 33.1 L (37.0-47.0) % MCV 83.2 (80.0-98.0) fL MCH 27.1 (27.0-33.0) pg MCHC 32.6 (31.0-35.0) g/dl RDW 12.9 (11.0-16.0) % Plt Count 281 (160-400) X10*3/uL MPV 10.4 (9.4-12.3) fL Immature Gran % (Auto) 0.5 H (0.0-0.4) % Neut % (Auto) 68.5 (45-73) % Lymph % (Auto) 19.8 L (20-40) % [place] % (Auto) 7.3 (2-11) % Eos % (Auto) 3.6 (0-4) % Baso % (Auto) 0.3 (0-2) % Lymph # (Auto) 1.8 (1.2-4.9) X10*3/uL [place] # (Auto) 0.7 (0.1-1.2) X10*3/uL Eos # (Auto) 0.3 (0.0-0.4) X10*3/uL Baso # (Auto) 0.0 (0.0-0.2) X10*3/uL Abs Immat Gran (auto) 0.05 H (0.00-0.03) X10*3/uL Absolute Neuts (auto) 6.3 (2.0-8.3) x10*3/uL Absolute Nucleated RBC 0.000 (0.0-0.012) X10*3/uL Nucleated RBC % (auto) 0.0 (0.0-0.2) /100WBC Sodium 142 (135-145) mmol/L Potassium 4.2 (3.3-5.1) mmol/L Chloride 105 (96-108) mmol/L Carbon Dioxide 27 (22-29) mmol/L Anion Gap 14 (12-20) BUN 19 H (9-16) mg/dL Creatinine 0.89 (0.5-1.4) mg/dL Estim Creat Clear Calc 49.2 Estimated GFR > 60 Random Glucose 169 H (60-115) mg/dL Calcium 9.1 (8.4-10.2) mg/dL Total Bilirubin 0.5 (0.0-1.0) mg/dL AST 22 D (5-31) U/L ALT 40 H (0-31) U/L Alkaline Phosphatase 80 D (39-117) U/L Total Protein 6.8 (6.5-8.0) g/dL Albumin 4.5 (3.5-5.0) g/dL Urine Color YELLOW Urine Appearance HAZY Urine pH 6.0 (5.0-8.0) Ur Specific [place] 1.010 (1.005-1.025) Urine Protein NEG (NEG-TRACE) MG/DL Urine Glucose (UA) NEG (NEG) MG/DL Urine Ketones NEG (NEG) MG/DL Urine Blood NEG (NEG) Urine Nitrite NEG (NEG) Ur Leukocyte Esterase 1+ H (NEG) Urine RBC 0 (0) /HPF Urine WBC 5-9 H (0-4) /HPF Ur Squamous Epith Cells 2+ /LPF Urine Bacteria TRACE /LPF Urine Mucus 1+ /LPF Discharge Plan Discharge Clinical Impression: Acute lower GI bleeding Patient Disposition: Home, Self-Care Instructions: Rectal Bleeding (ED) Additional Instructions: You do have low red blood cell counts and your anemic however this is unchanged from your previous blood counts which is reassuring Rest of your blood work was normal. The bleeding that your experiencing may be related to the diverticulitis At this time I think it is okay for you to go home however if you have increased bleeding, dark tarry stools or stools that look like red jelly or jam then you should return to the emergency department for evaluation Follow-up with your doctor in 2 days. Please return to the emergency department if your symptoms get worse or if you develop any symptoms that are concerning to you. Prescriptions: No Action (DME) FreeStyle Lite Strips Strip See Rx Instructions .Route Qty: 100 0RF Rx Instructions: check BS 1-2x/day (DME) blood-glucose meter [FreeStyle Lite Meter] Kit See Rx Instructions .Route Qty: 1 0RF Rx Instructions: check BS 2-3x/day (DME) lancets [FreeStyle Lancets] 28 gauge misc See Rx Instructions .Route Qty: 100 0RF Rx Instructions: check BS 1-2x/day hydrochlorothiazide 25 mg tablet 25 mg PO DAILY Qty: 30 2RF glipizide 5 mg tablet 5 mg PO DAILY Qty: 90 0RF metformin 1,000 mg tablet 1,000 mg PO BID Qty: 180 0RF (DME) walker Misc See Rx Instructions .Route Qty: 1 0RF Rx Instructions: As directed methocarbamol 500 mg tablet 500 mg PO TID PRN (Reason: pain (scale score 4-6)) Qty: 14 0RF ciprofloxacin HCl [Cipro] 500 mg tablet 500 mg PO Q12H 7 Days Qty: 14 0RF metronidazole 500 mg tablet 500 mg PO Q8H 7 Days Qty: 21 0RF ondansetron 4 mg tablet,disintegrating 4 mg PO Q8H PRN (Reason: nausea and vomiting) Qty: 10 0RF lidocaine [Lidoderm] 5 % adhesive patch,medicated 1 patch topical DAILY MDD remove after 12 hours PRN (Reason: pain) Qty: 30 0RF Rx Instructions: leave on most painful area for up to 12 hrs lidocaine HCl [Aspercreme (lidocaine HCl)] 4 % cream 1 appl topical BID PRN (Reason: pain) Qty: 120 0RF acetaminophen [Tylenol Extra Strength] 500 mg tablet 500 mg PO Q6H PRN (Reason: pain or fever) Qty: 20 0RF amlodipine 5 mg tablet 5 mg PO DAILY Qty: 30 3RF atorvastatin 40 mg tablet 40 mg PO DAILY Qty: 30 3RF clopidogrel [Plavix] 75 mg tablet 75 mg PO DAILY Qty: 30 3RF lisinopril 40 mg tablet 40 mg PO DAILY Qty: 30 3RF gabapentin 300 mg capsule 300 mg PO TID Qty: 90 3RF metoprolol succinate 100 mg tablet extended release 24 hr 100 mg PO DAILY Qty: 30 3RF cholestyramine-aspartame [Prevalite] 4 gram powder in packet 4 g PO TID Qty: 60 1RF Rx Instructions: administer w/meal; avoid other meds within 1hr before or 4-6hr after dose Print Language: [place]
== END 2022-02-11 05:21 | disposition home or self-care (01) ==
PROVIDERS: Emergency Provider Emergency Medicine Emergency Medical Services
DX: K92.2 Gastrointestinal hemorrhage, unspecified (principal); Z79.899 Other long term (current) drug therapy
CPT/HCPCS: 36415; 80053; 81001; 85025; 87086; 99283; 99284

== ENCOUNTER 2022-02-20 10:52 | Emergency (ER) | payer MEDICARE, MEDICAID, SELFPAY ==
--- NOTE | ~2022-02-20 | XR_ITS ---
EXAMINATION: RIGHT ELBOW, HUMERUS, AND SHOULDER. CLINICAL INFORMATION: Injury with pain COMPARISON: None TECHNIQUE: Three-view right elbow, AP and lateral views of the right humerus, 3 views of the right shoulder. FINDINGS: No dislocation of the right shoulder is identified. The glenohumeral joint appears unremarkable with minor spurring inferiorly. No widening of the coracoclavicular space is seen. No significant abnormality of the acromioclavicular joint. There is spurring and pit erosions/ subchondral cysts seen about the greater tuberosity with evidence for calcific tendinitis. I cannot rule out a nondisplaced fracture of the greater tuberosity versus old Hill-Sachs fracture on this imaging. Views of the right humerus demonstrate calcific tendinitis. There is question of a nondisplaced fracture about the greater tuberosity versus old Hill-Sachs fracture. Limited views of the right elbow do not demonstrate any evidence of acute fracture or dislocation. There is noted to be an olecranon spur site of insertion of triceps tendon. No effusion is appreciated. XR/XR elbow RT 2V IMPRESSION: Calcific tendinitis of the shoulder. Deformity of the humeral head which could be related to a nondisplaced greater tuberosity fracture or old Hill-Sachs fracture deformity. Clinical correlation with shoulder dislocation in the past is recommended. No acute fracture, dislocation, or effusion of the right elbow.
--- NOTE | ~2022-02-20 | XR_ITS ---
EXAMINATION: RIGHT ELBOW, HUMERUS, AND SHOULDER. CLINICAL INFORMATION: Injury with pain COMPARISON: None TECHNIQUE: Three-view right elbow, AP and lateral views of the right humerus, 3 views of the right shoulder. FINDINGS: No dislocation of the right shoulder is identified. The glenohumeral joint appears unremarkable with minor spurring inferiorly. No widening of the coracoclavicular space is seen. No significant abnormality of the acromioclavicular joint. There is spurring and pit erosions/ subchondral cysts seen about the greater tuberosity with evidence for calcific tendinitis. I cannot rule out a nondisplaced fracture of the greater tuberosity versus old Hill-Sachs fracture on this imaging. Views of the right humerus demonstrate calcific tendinitis. There is question of a nondisplaced fracture about the greater tuberosity versus old Hill-Sachs fracture. Limited views of the right elbow do not demonstrate any evidence of acute fracture or dislocation. There is noted to be an olecranon spur site of insertion of triceps tendon. No effusion is appreciated. XR/XR humerus RT IMPRESSION: Calcific tendinitis of the shoulder. Deformity of the humeral head which could be related to a nondisplaced greater tuberosity fracture or old Hill-Sachs fracture deformity. Clinical correlation with shoulder dislocation in the past is recommended. No acute fracture, dislocation, or effusion of the right elbow.
--- NOTE | ~2022-02-20 | XR_ITS ---
EXAMINATION: RIGHT ELBOW, HUMERUS, AND SHOULDER. CLINICAL INFORMATION: Injury with pain COMPARISON: None TECHNIQUE: Three-view right elbow, AP and lateral views of the right humerus, 3 views of the right shoulder. FINDINGS: No dislocation of the right shoulder is identified. The glenohumeral joint appears unremarkable with minor spurring inferiorly. No widening of the coracoclavicular space is seen. No significant abnormality of the acromioclavicular joint. There is spurring and pit erosions/ subchondral cysts seen about the greater tuberosity with evidence for calcific tendinitis. I cannot rule out a nondisplaced fracture of the greater tuberosity versus old Hill-Sachs fracture on this imaging. Views of the right humerus demonstrate calcific tendinitis. There is question of a nondisplaced fracture about the greater tuberosity versus old Hill-Sachs fracture. Limited views of the right elbow do not demonstrate any evidence of acute fracture or dislocation. There is noted to be an olecranon spur site of insertion of triceps tendon. No effusion is appreciated. XR/XR shoulder RT min 2V IMPRESSION: Calcific tendinitis of the shoulder. Deformity of the humeral head which could be related to a nondisplaced greater tuberosity fracture or old Hill-Sachs fracture deformity. Clinical correlation with shoulder dislocation in the past is recommended. No acute fracture, dislocation, or effusion of the right elbow.
[2022-02-20 11:25] VITALS: BP 128/71; PULSE 89; RESP 16; TEMP 36.6; O2SAT 99; BMI 25.7
--- NOTE | 2022-02-20 13:32 | ED.EXTPRO ---
HPI - Extremity Problem General Chief complaint: Extremity Injury, Upper Stated complaint: R/L Arm Injury 02/20/22 Time Seen by Provider: 02/20/22 11:04 History of Present Illness HPI Narrative: Patient complains of right shoulder and upper arm pain after a fall yesterday, a trip and fall where she fell on the outstretched arm and felt a pain in the right shoulder, no head injury no neck injury, denies any other pain or injury Related Data Previous Rx's Medication Instructions Recorded walker #1 ea 04/06/21 methocarbamol 500 mg tablet 500 mg PO TID PRN pain (scale 09/23/21 score 4-6) #14 tabs acetaminophen 500 mg tablet 500 mg PO Q6H PRN pain or fever 10/27/21 (Tylenol Extra Strength) #20 tabs amlodipine 5 mg tablet 5 mg PO DAILY #30 tabs 10/27/21 atorvastatin 40 mg tablet 40 mg PO DAILY Hyperlipidemia #30 10/27/21 tabs cholestyramine-aspartame 4 gram 4 g PO TID #60 ea 10/27/21 oral powder for susp in a packet (Prevalite) clopidogrel 75 mg tablet (Plavix) 75 mg PO DAILY #30 tabs 10/27/21 gabapentin 300 mg capsule 300 mg PO TID #90 caps 10/27/21 lidocaine 5 % topical patch 1 patch topical DAILY PRN pain #30 10/27/21 (Lidoderm) ea lidocaine HCl 4 % topical cream 1 appl topical BID PRN pain #120 10/27/21 (Aspercreme (lidocaine HCl)) grams lisinopril 40 mg tablet 40 mg PO DAILY #30 tabs 10/27/21 metoprolol succinate 100 mg 100 mg PO DAILY #30 tabs 10/27/21 tablet,extended release 24 hr blood sugar diagnostic (FreeStyle #100 ea 11/10/21 Lite Strips) blood-glucose meter (FreeStyle #1 ea 11/10/21 Lite Meter kit) lancets 28 gauge (FreeStyle #100 ea 11/10/21 Lancets) hydrochlorothiazide 25 mg tablet 25 mg PO DAILY #30 tabs 01/21/22 ciprofloxacin HCl 500 mg tablet 500 mg PO Q12H 7 days #14 tabs 02/01/22 (Cipro) metronidazole 500 mg tablet 500 mg PO Q8H 7 days #21 tabs 02/01/22 ondansetron 4 mg disintegrating 4 mg PO Q8H PRN nausea and 02/01/22 tablet vomiting #10 tabs glipizide 5 mg tablet 5 mg PO DAILY #90 tabs 02/08/22 metformin 1,000 mg tablet 1,000 mg PO BID #180 tabs 02/08/22 Allergies Allergy/AdvReac Type Severity Reaction Status Date / Time aspirin [ASPIRIN] Allergy Intermediate RASH Verified 02/10/22 19:52 Penicillins [PENICILLINS] Allergy Intermediate SWELLING Verified 02/10/22 19:52 tramadol [TRAMADOL] Allergy Unknown NAUSEA Verified 02/10/22 19:52 Review of Systems Review of Systems: Positive for right shoulder and upper arm pain after fall Negatives are no headache no head injury no dizziness no confusion no fainting no feeling faint no neck pain no numbness weakness or tingling no chest pain no shortness of breath no abdominal pain no other extremity pains Yes all other systems are reviewed and are negative PMFSH Past Medical History Source: nursing notes reviewed Medical History Arthritis Diabetes No known health problems Retinopathy Surgical History History of 2 sections History of cholecystectomy History of hysterectomy Social History Social History Housing: Apartment Alcohol intake: never Patient Tobacco Use Status: Never used Tobacco e-Cigarette/Vaping Use: Never Used Second Hand Smoke Exposure: No Advance Directives: Yes Advance Directives Information Provided: Yes Advance Directives on File: No service: No Current occupational status: disabled Cognitive needs: Yes (walker,cane) Hearing needs: No Vision needs: Yes (glasses) Physical Exam Vital Signs: Vital Signs: Last Vital Signs Temp 97.9 F 02/20/22 11:25 Pulse 89 02/20/22 11:25 Resp 16 02/20/22 11:25 BP 128/71 02/20/22 11:25 Pulse Ox 99 02/20/22 11:25 O2 Del Method 02/20/22 11:25 BMI result Body Mass Index 25.7 General appearance no acute distress Head is normocephalic atraumatic Neck is supple nontender Chest no chest wall tenderness no clavicle tenderness, no respiratory distress Extremities the right upper arm is tender The right shoulder has restricted range of motion on extension abduction and external rotation, there is no obvious deformity, skin is intact, neurovascular intact distal There is some tenderness to the upper humerus area, again skin is normal in appearance and neurovascular intact distal Lower extremities normal Course Course Course Narrative: Shoulder x-ray showed a deformity of the humeral head which is possibly a nondisplaced greater tuberosity fracture or an old Hill Sachs fracture deformity Patient is given a sling The patient denies any previous injury or dislocation to the right shoulder As this is the area of tenderness and worst pain I am treating the patient with a sling for a possible nondisplaced greater tuberosity fracture and she will follow with orthopedics Discharge Plan Discharge Clinical Impression: Fracture, humerus, great tuberosity Patient Disposition: Home, Self-Care Additional Instructions: X-ray showed a possible nondisplaced fracture in the part of her shoulder that hurts and is hard for you to move Follow with orthopedist for further evaluation and treatment Return to ER any time any concerns You can use Tylenol as needed for pain Prescriptions: No Action (DME) FreeStyle Lite Strips Strip See Rx Instructions .Route Qty: 100 0RF Rx Instructions: check BS 1-2x/day (DME) blood-glucose meter [FreeStyle Lite Meter] Kit See Rx Instructions .Route Qty: 1 0RF Rx Instructions: check BS 2-3x/day (DME) lancets [FreeStyle Lancets] 28 gauge misc See Rx Instructions .Route Qty: 100 0RF Rx Instructions: check BS 1-2x/day hydrochlorothiazide 25 mg tablet 25 mg PO DAILY Qty: 30 2RF glipizide 5 mg tablet 5 mg PO DAILY Qty: 90 0RF metformin 1,000 mg tablet 1,000 mg PO BID Qty: 180 0RF (DME) walker Misc See Rx Instructions .Route Qty: 1 0RF Rx Instructions: As directed methocarbamol 500 mg tablet 500 mg PO TID PRN (Reason: pain (scale score 4-6)) Qty: 14 0RF ciprofloxacin HCl [Cipro] 500 mg tablet 500 mg PO Q12H 7 Days Qty: 14 0RF metronidazole 500 mg tablet 500 mg PO Q8H 7 Days Qty: 21 0RF ondansetron 4 mg tablet,disintegrating 4 mg PO Q8H PRN (Reason: nausea and vomiting) Qty: 10 0RF lidocaine [Lidoderm] 5 % adhesive patch,medicated 1 patch topical DAILY MDD remove after 12 hours PRN (Reason: pain) Qty: 30 0RF Rx Instructions: leave on most painful area for up to 12 hrs lidocaine HCl [Aspercreme (lidocaine HCl)] 4 % cream 1 appl topical BID PRN (Reason: pain) Qty: 120 0RF acetaminophen [Tylenol Extra Strength] 500 mg tablet 500 mg PO Q6H PRN (Reason: pain or fever) Qty: 20 0RF amlodipine 5 mg tablet 5 mg PO DAILY Qty: 30 3RF atorvastatin 40 mg tablet 40 mg PO DAILY Qty: 30 3RF clopidogrel [Plavix] 75 mg tablet 75 mg PO DAILY Qty: 30 3RF lisinopril 40 mg tablet 40 mg PO DAILY Qty: 30 3RF gabapentin 300 mg capsule 300 mg PO TID Qty: 90 3RF metoprolol succinate 100 mg tablet extended release 24 hr 100 mg PO DAILY Qty: 30 3RF cholestyramine-aspartame [Prevalite] 4 gram powder in packet 4 g PO TID Qty: 60 1RF Rx Instructions: administer w/meal; avoid other meds within 1hr before or 4-6hr after dose Referrals: Lucio Montenegro MD [Physician] - (Right greater tuberosity nondisplaced fracture)
== END 2022-02-20 13:41 | disposition home or self-care (01) ==
PROVIDERS: Emergency Provider Emergency Medicine
DX: S42.254A Nondisplaced fracture of greater tuberosity of right humerus, initial encounter for closed fracture (principal); W06.XXXA Fall from bed, initial encounter; Y93.84 Activity, sleeping; Y92.032 Bedroom in apartment as the place of occurrence of the external cause; Y99.9 Unspecified external cause status
CPT/HCPCS: 73030; 73060; 73070; 99282; 99283

== ENCOUNTER 2022-04-17 17:29 | Emergency (ER) | payer MEDICARE, MEDICAID, SELFPAY ==
--- NOTE | ~2022-04-17 | XR_ITS ---
EXAMINATION: XR THORACIC SPINE XR LUMBAR SPINE CLINICAL INFORMATION: s/p fall c head/neck/back injury; pain COMPARISON: CT abdomen pelvis dated 02/01/2022 TECHNIQUE: AP, lateral, and swimmer's views of the thoracic spine and AP and lateral views of the lumbar spine and lateral view of the lumbosacral junction. FINDINGS: Thoracic: Vertebral body heights are normal. Alignment is anatomic without spondylolisthesis. Minimal degenerative disc disease in the upper thoracic spine is characterized by an . Osteophytes and minimal loss of intervertebral disc height anteriorly. Paraspinal soft tissues are unremarkable. No osseous lesions are identified. Lumbar: There is mild degenerative disc disease in the lower lumbar spine, characterized by endplate osteophytes and minimal loss of vertebral disc height, most notably at L4-L5. There is facet arthropathy at L5-S1 bilaterally. 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 No fractures. Bones are osteopenic. Vertebral body heights are normal. Soft tissues are unremarkable. XR/XR lumbar spine 4V min IMPRESSION: No acute fracture or malalignment identified in the thoracic and lumbar spine. Mild multilevel degenerative disc disease in the thoracolumbar spine and facet arthropathy at L5-S1.
--- NOTE | ~2022-04-17 | XR_ITS ---
EXAMINATION: XR SHOULDER, RIGHT XR ELBOW, RIGHT CLINICAL INFORMATION: s/p fall c right shoulder/elbow pain COMPARISON: 02/20/2022 TECHNIQUE: Three views of the right shoulder. 3 views of the right elbow. FINDINGS: Right shoulder: Cortical irregularity at the greater tuberosity is likely due to chronic overlying rotator cuff tendinopathy. No fracture or malalignment. Glenohumeral joint is normal. Mild acromioclavicular osteophytes. No acute fractures. Soft tissues are unremarkable. Right elbow: No acute fracture or malalignment. No joint effusion. Small marginal osteophytes. Subtle cortical irregularity at the lateral epicondyle may be due to prior colitis. Minimal enthesopathy at the triceps tendon insertion on the olecranon. Soft tissues are otherwise unremarkable. Bone mineralization is normal. XR/XR shoulder RT min 2V IMPRESSION: No acute osseous abnormalities at the right shoulder and right elbow. Cortical irregularity at the right greater tuberosity, suggesting chronic rotator cuff tendinopathy.
--- NOTE | ~2022-04-17 | XR_ITS ---
EXAMINATION: XR THORACIC SPINE XR LUMBAR SPINE CLINICAL INFORMATION: s/p fall c head/neck/back injury; pain COMPARISON: CT abdomen pelvis dated 02/01/2022 TECHNIQUE: AP, lateral, and swimmer's views of the thoracic spine and AP and lateral views of the lumbar spine and lateral view of the lumbosacral junction. FINDINGS: Thoracic: Vertebral body heights are normal. Alignment is anatomic without spondylolisthesis. Minimal degenerative disc disease in the upper thoracic spine is characterized by an . Osteophytes and minimal loss of intervertebral disc height anteriorly. Paraspinal soft tissues are unremarkable. No osseous lesions are identified. Lumbar: There is mild degenerative disc disease in the lower lumbar spine, characterized by endplate osteophytes and minimal loss of vertebral disc height, most notably at L4-L5. There is facet arthropathy at L5-S1 bilaterally. 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 No fractures. Bones are osteopenic. Vertebral body heights are normal. Soft tissues are unremarkable. XR/XR thoracic spine 3V IMPRESSION: No acute fracture or malalignment identified in the thoracic and lumbar spine. Mild multilevel degenerative disc disease in the thoracolumbar spine and facet arthropathy at L5-S1.
--- NOTE | ~2022-04-17 | CT_ITS ---
EXAMINATION: HEAD CT WITHOUT CONTRAST CERVICAL SPINE CT WITHOUT CONTRAST CLINICAL INFORMATION: s/p fall c head/neck/back injury. COMPARISON: None. TECHNIQUE: Contiguous axial imaging of the head was performed without the administration of IV contrast. Axial multidetector volumetric images were also performed through the cervical spine without intravenous contrast. Multiplanar reconstructed images in coronal and sagittal orientations were submitted. This CT examination was performed using dose optimization techniques as appropriate, variously including the following: *Automated exposure control *Adjustment of mA and/or kV according to patient size (this includes techniques or standardized protocols for targeted exams where dose is matched to indication/reason for exam; i.e. extremities or head) *Use of iterative reconstruction technique DOSE: 873 mGy-cm FINDINGS: HEAD: There is no evidence of acute intracranial hemorrhage or territorial infarction. No abnormal mass-effect or midline shift. No extra-axial fluid collections. Hansen to white matter differentiation is well preserved. The ventricles are normal in size and configuration. A few foci of hypoattenuation in the subcortical and periventricular white matter are most consistent with chronic microangiopathic changes. Calcific atherosclerosis is present within the cavernous segments of the internal carotid arteries. The soft tissues and osseous structures are normal. The sinuses and mastoid air cells are clear. Cerumen is present within the bilateral external auditory canals. CERVICAL SPINE: There is depression of the superior endplates of the T3 vertebral body and, to a lesser extent, the T2 vertebral body with approximately 15 percent loss of vertebral body height at T3 and 5 percent T2. These fractures do demonstrate sharp margins with acute breaks and are favored to be chronic. No additional fractures are identified. Review body heights are otherwise normal. There is grade 1 anterolisthesis of C4 on C5 by 2 mm, likely related to the facet arthropathy at this level. No additional spondylolisthesis. Degenerative osteophytes and sclerosis are present at the atlantodental articulation, though normal alignment is maintained. Craniocervical junction is normal. There is mild multilevel degenerative disc disease, characterized by loss of vertebral disc height and intensity osteophytes, most notably at C4-C5. Multilevel facet arthropathy is more moderate to severe on the left at C3-C4, C4-C5, and C5-C6. More mild multilevel facet arthropathy on the right. Central canal and neural foramina appear patent without appreciable stenoses. No significant paravertebral soft tissue swelling. Atherosclerotic calcifications are present in the carotid arteries. Imaged portions of the lung apices are clear. CT/CT cervical spine wo IV con IMPRESSION: 1. No acute intracranial pathology. 2. No acute fracture or malalignment in the cervical spine. Mild superior endplate compression fractures at the T2 and T3 vertebral bodies are favored to be chronic no acute fractures are identified in this region. 3. Mild multilevel degenerative disc disease with more moderate to severe facet arthropathy on the left from C3-4 to C5-C6
--- NOTE | ~2022-04-17 | XR_ITS ---
EXAMINATION: XR SHOULDER, RIGHT XR ELBOW, RIGHT CLINICAL INFORMATION: s/p fall c right shoulder/elbow pain COMPARISON: 02/20/2022 TECHNIQUE: Three views of the right shoulder. 3 views of the right elbow. FINDINGS: Right shoulder: Cortical irregularity at the greater tuberosity is likely due to chronic overlying rotator cuff tendinopathy. No fracture or malalignment. Glenohumeral joint is normal. Mild acromioclavicular osteophytes. No acute fractures. Soft tissues are unremarkable. Right elbow: No acute fracture or malalignment. No joint effusion. Small marginal osteophytes. Subtle cortical irregularity at the lateral epicondyle may be due to prior colitis. Minimal enthesopathy at the triceps tendon insertion on the olecranon. Soft tissues are otherwise unremarkable. Bone mineralization is normal. XR/XR elbow RT min 3V IMPRESSION: No acute osseous abnormalities at the right shoulder and right elbow. Cortical irregularity at the right greater tuberosity, suggesting chronic rotator cuff tendinopathy.
[2022-04-17 17:40] VITALS: BP 134/70; BP 146/76; PULSE 102; PULSE 91; RESP 16; TEMP 37.4; O2SAT 93; O2SAT 98; BMI 26.6
[2022-04-17 18:00] VITALS: BP 117/75; PULSE 97; RESP 14; TEMP 36.7; O2SAT 99
--- OUTSIDE RECORDS SUMMARY | 2022-04-17 18:17 | XMS_ITS | Continuity of Care Document ---
:1955 Author Organization [facility] Address [address] [facility], 3rd Floor, [address] [place] [id number]- Care Team Providers Name Role Phone Ping Salazar DO Primary Care Physician [place] [facility] [place] 03/19/20 [facility] [address], [address], [address] [place] [id number]- [facility] Attending Physician: Donna Perkins NP Admitting Physician: Maddie TINAJERO, Donna Referring Physician: Michael Jessica Allergies, Adverse Reactions, Alerts Substance Reaction Severity Status aspirin Active penicillins Active Immunizations Given and Recorded Vaccine Date Status Refusal Reason influenza virus vaccine, inactivated 04/20/19 Given influenza virus vaccine, inactivated 06/06/17 Given influenza virus vaccine, inactivated1 10/06/12 Given pneumococcal 23-valent vaccine 11/24/12 Given tetanus-diphtheria toxoids (Td)2 11/24/12 Given 1Admin Note: VIS dated Admin Note: vis given 06/04/08 Medications Acetaminophen = 650 mg, By Mouth, Once, lot # [id number] exp: 03/2020 mfg: [employer] Pharm, 0 Refills, Maintenance, 12/13/18 11:07:34 EDT Start Date: 12/13/18 Stop Date: 12/20/18 Status: OrderedAerochamber w/Mask (Large) See Instructions, # 1 each, Maintenance, to use with albuterol inhaler, 07/05/19 10:30:00 EST, Compound, 150, cm, 07/05/19 9:54:00 EST, Height, 60.9, kg, 08/14/18 15:46:00 EST, Dry Weight Start Date: 07/05/19 Status: Orderedalbuterol CFC free 90 mcg/inh inhalation aerosol 1, puffs, Inhalation, 4 times a day, PRN, use with spacer chamber, # 25 Gm, Refills 11, Tot. [id number], Maintenance, 08/30/19 10:49:00 EST, Aerosol, Route to Pharmacy Electronically, [id number], [facility]/pharmacy #[id number], 150, cm,... Start Date: 08/30/19 Status: OrderedAtivan 0.5 mg oral tablet 1 tablet = 0.5 mg, By Mouth, 3 times a day, 0 Refills, Maintenance, 12/06/17 15:33:54 EDT Start Date: 12/06/17 Status: Orderedbaclofen 10 mg oral tablet 10 mg, 1, tablet, By Mouth, 3 times a day, Refills 0, Maintenance, 12/06/17 15:37:48 EDT Start Date: 12/06/17 Status: OrderedBentyl 10 mg oral capsule 2 capsule = 20 mg, By Mouth, 4 times a day, 0 Refills, Maintenance, 12/06/17 15:37:36 EDT Start Date: 12/06/17 Status: OrderedBlood Pressure Monitor See Instructions, # 1 each, Maintenance, check daily, 11/02/19 16:32:00 EDT, Compound Start Date: 11/02/19 Status: OrderedcloNIDine 0.1 mg oral tablet 0.1 mg, 1, tablet, By Mouth, 2 times a day, # 180 tablet, Refills 3, Tot. Refills 3, Maintenance, 11/02/19 16:30:00 EDT, Route to Pharmacy Electronically, [facility]/pharmacy #[id number], 150, cm, 08/30/19 10:49:00EST, Height, 60.9, kg, 08/14/18 15:46:00 EST, Dry... Start Date: 11/02/19 Status: OrderedCompression Stockings See Instructions, # 1 pair, Refills 6, Tot. Refills 6, Maintenance, Wear both stockings at least 8 hours of the day Compression , 12/27/12 14:33:33 Start Date: 12/27/12 Status: OrdereddilTIAZem 240 mg/24 hours oral tablet, extended release 1 tablet = 240 mg, By Mouth, Daily, # 30 tablet, 11 Refills, Maintenance, 11/02/19 16:31:00 EDT, [facility]/pharmacy #[id number], 150, cm, 08/30/19 10:49:00 EST, Height, 60.9, kg, 08/14/18 15:46:00 EST, Dry Weight Start Date: 11/02/19 Status: Orderedfamotidine 20 mg oral tablet 20 mg, By Mouth, Daily, # 60 each, Refills 1, Tot. Refills 1, Maintenance, 09/03/19 10:32:00 EST, Route to Pharmacy Electronically, [facility]/pharmacy #[id number], 150, cm, 07/26/19 14:53:00 EST, Height, 60.9, kg,08/14/18 15:46:00 EST, Dry Weight Start Date: 09/03/19 Stop Date: 11/02/19 Status: Orderedferrous sulfate 325 mg oral enteric coated tablet 325 mg, 1, tablet, By Mouth, Daily, # 90 tablet, Refills 2, Tot. Refills 2, Maintenance, 03/31/20 10:32:00 EDT, Route to Pharmacy Electronically, [facility]/pharmacy #[id number], 150, cm, 07/26/19 14:53:00 EST, Height, 60.9, kg, 08/14/18 15:46:00 EST, Dry Weight Start Date: 03/31/20 Stop Date: 12/26/20 Status: OrderedFioricet oral capsule 1 capsule, By Mouth, Every 4 hours, PRN as needed, do not not to exceed 6 capsules/day and do not take more than 2-3x/ week, # 30 capsule, 0 Refills, Maintenance, 10/10/19 8:24:00 EDT, Capsule, [facility]/pharmacy #[id number], 1 capsule By Mouth Every 4 hours,RI... Start Date: 10/10/19 Status: OrderedFlonase 50 mcg/inh nasal spray 1 sprays, Nares, Both, 2 times a day, # 16 Gm, 5 Refills, Maintenance, 07/05/19 10:32:00 EST, [place],[facility]/pharmacy #[id number], 1 sprays Nares, Both 2 times a day, 150, cm, 07/05/19 9:54:00 EST, Height, 60.9,kg, 08/14/18 15:46:00 EST, Dry Weight Start Date: 07/05/19 Status: Orderedfolic acid 1 mg oral tablet 1 mg, 1, tablet, By Mouth, Daily, # 90 tablet, Refills 11, Tot. Refills 11, Maintenance, 12/14/17 16:29:02 EDT, Route to Pharmacy Electronically, [id number], [facility]/pharmacy #[id number] Start Date: 12/14/17 Status: OrderedFreestyle Lite Lancets See Instructions, # 100 units, Refills 3, Tot. Refills 3, Maintenance, check blood sugar 1x/day, 10/25/12 10:28:49 Start Date: 10/25/12 Status: OrderedFreestyle Lite Lancets See Instructions, # 50 each, Refills 11, Tot. Refills 11, Maintenance, use to check BS daily dx: E: 11.9, 10/08/19 16:30:00 EDT, Compound, 150, cm, 08/30/19 10:49:00 EST, Height, 60.9, kg, 08/14/18 15:46:00 EST, Dry Weight Start Date: 10/08/19 Stop Date: 10/02/20 Status: OrderedFreestyle Lite Monitor See Instructions, # 1 units, Maintenance, use as directed. Dx: E11. 9, 06/06/17 11:40:33, Compound Start Date: 06/06/17 Status: OrderedFreestyle Lite Test Strips See Instructions, # 100 units, Refills 3, Tot. Refills 3, Maintenance, check blood sugar 1 time a day, 10/25/12 10:28:54 Start Date: 10/25/12 Status: OrderedFreestyle Lite Test Strips See Instructions, # 50 each, Refills 11, Tot. Refills 11, Maintenance, FSBS daily, Dx: E: 11.9, 10/08/19 16:30:00 EDT, Compound, 150, cm, 08/30/19 10:49:00 EST, Height, 60.9, kg, 08/14/18 15:46:00 EST,Dry Weight Start Date: 10/08/19 Status: Orderedgabapentin 300 mg oral capsule 300 mg, 1, capsule, By Mouth, 3 times a day, # 90 capsule, Refills 5, Tot. Refills 5, Maintenance, 01/01/20 10:32:00 EDT, Route to Pharmacy Electronically, [facility]/pharmacy #[id number], 150, cm, 07/26/19 14:53:00 EST, Height, 60.9, kg, 08/14/18 15:46:00 EST, . Start Date: 01/01/20 Stop Date: 06/29/20 Status: OrderedglipiZIDE 5 mg oral tablet, extended release 1 tablet = 5 mg, By Mouth, Daily, for 90 days, # 90 tablet, 6 Refills, Hard Stop 03/26/21 10:33:00 EDT, 07/05/19 10:33:00 EST, [facility]/pharmacy #[id number], 150, cm, 07/05/19 9:54:00 EST, Height, 60.9, kg, 08/14/18 15:46:00 EST, Dry Weight Start Date: 07/05/19 Stop Date: 03/26/21 Status: OrderedglipiZIDE 5 mg oral tablet, extended release 1 tablet = 5 mg, By Mouth, Daily, # 90 tablet, 6 Refills, Maintenance, 03/26/21 10:33:00 EDT, [facility]/pharmacy #[id number], 150, cm, 08/30/19 10:49:00 EST, Height, 60.9, kg, 08/14/18 15:46:00 EST, Dry Weight Start Date: 03/26/21 Stop Date: 12/16/22 Status: OrderedJanuvia 25 mg oral tablet See Instructions, SHANE BUSTOS TODOS [place] [facility], # 30 tablet, 5 Refills, Soft Stop, 02/19/20 13:09:00 EDT, [facility]/pharmacy #[id number], 150, cm, 08/30/19 10:49:00 EST, Height, 60.9, kg, 08/14/18 15:46:00 EST,Dry Weight Start Date: 02/19/20 Status: Orderedlisinopril 40 mg oral tablet 1 tablet = 40 mg, By Mouth, Daily, for 90 days, # 90 tablet, 11 Refills, Hard Stop 04/30/24 0:00:00 EDT, 05/16/21 0:00:00 EDT, Tablet, [facility]/pharmacy #[id number] Start Date: 05/16/21 Stop Date: 04/30/24 Status: Orderedlisinopril 40 mg oral tablet 1 tablet = 40 mg, By Mouth, Daily, for 90 days, # 90 tablet, 11 Refills, Hard Stop 04/15/27 0:00:00 EDT, 04/30/24 0:00:00 EDT, Tablet, [facility]/pharmacy #[id number], 150, cm, 08/30/19 10:49:00 EST, Height, 60.9, kg, 08/14/18 15:46:00 EST, Dry Weight Start Date: 04/30/24 Stop Date: 04/15/27 Status: OrderedmetFORMIN 1000 mg oral tablet 1 tablet = 1,000 mg, By Mouth, 2 times a day, # 180 tablet, 5 Refills, Maintenance, 08/30/19 10:49:00 EST, Tablet, [facility]/pharmacy #[id number], 150, cm, 08/30/19 10:49:00 EST, Height, 60.9, kg, 08/14/18 15:46:00 EST, Dry Weight Start Date: 08/30/19 Status: OrderedNuLYTELY Reyes oral powder for reconstitution See Instructions, as directed on package labeling split prep ordered, # 4,000 mL, 0 Refills, Maintenance, 12/06/17 16:02:06 EDT, REC Powder Start Date: 12/06/17 Status: OrderedPrevalite Packets 4 g/5.5 g oral powder for reconstitution See Instructions, 1 PACK/PACKET BY MOUTH 3 TIMES A DAY,X30 DAYS, # 90 pack/packet, 1 Refills, Soft Stop, 05/14/19 14:37:56 EDT Start Date: 05/14/19 Status: OrderedVitamin D3 2000 intl units oral tablet 1 tablet = 2,000 International_Units, By Mouth, Daily, # 90 tablet, 11 Refills, Maintenance, 06/19/22 10:31:00 EST, [facility]/pharmacy #[id number], 150, cm, 08/30/19 10:49:00 EST, Height, 60.9, kg, 08/14/18 15:46:00 EST, Dry Weight Start Date: 06/19/22 Stop Date: 06/03/25 Status: Ordered Problem List Condition Effective Dates Status Health Status Informant Asthma(Confirmed) Active Diabetes Mellitus(Confirmed) Active Hypertension(Confirmed) Active Social History Social History Type Response Smoking Status Never smoker; Tobacco user i n household: No entered on: 06/06/17 Sex
--- OUTSIDE RECORDS SUMMARY | 2022-04-17 18:17 | XMS_ITS | Continuity of Care Document ---
:1955 Author Organization [facility] Address [address] [place] [id number]- Care Team Providers Name Role Phone PlymouthPing Solorzano DO Primary Care Physician Encounter [facility] [place] Date(s): 08/23/19 - 09/02/[address] [address]- [facility] Attending Physician: Heather Nagy Admitting Physician: AdmHeather alvarado Referring Physician: AdmtrHeather Allergies, Adverse Reactions, Alerts Substance Reaction Severity [...] 650 mg, By Mouth, Once, lot # [id number] exp: 03/2020 mfg: [employer], 0 Refills, [...] chamber, # 25 Gm, Refills 11, Tot. [id number], Maintenance, 08/30/19 10:49:00 EST, Aerosol, Route to Pharmacy Electronically, [id number], [facility]/pharmacy #[id number], 150, cm,... Start Date: 08/30/19 Status: [...] 12/06/17 15:37:36 EDT Start Date: 12/06/17 Status: OrderedcloNIDine 0.1 mg oral tablet 0.1 mg, 1, tablet, By Mouth, 2 times a day, # 180 tablet, Refills 3, Tot. Refills 3, Maintenance, 07/05/19 10:31:00 EST, Route to Pharmacy Electronically, [facility]/pharmacy #[id number], 150, cm, 07/05/19 9:54:00 EST, Height, 60.9, kg, 08/14/18 15:46:00 EST, Dry... Start Date: 07/05/19 Status: OrderedCompression Stockings See Instructions, # 1 pair, Refills 6, Tot. Refills 6, Maintenance, Wear both stockings at least 8 hours of the day Compression , 12/27/12 14:33:33 Start Date: 12/27/12 Status: OrdereddilTIAZem 240 mg/24 hours oral tablet, extended release 1 tablet = 240 mg, By Mouth, Daily, # 30 tablet, 11 Refills, Maintenance, 08/30/19 10:49:00 EST, [facility]/pharmacy #[id number], 150, cm, 08/30/19 10:49:00 EST, Height, 60.9, kg, 08/14/18 15:46:00 EST, Dry Weight Start Date: 08/30/19 Status: Orderedfamotidine 20 mg oral tablet 20 mg, By Mouth, Daily, for 30 days, # 60 each, Refills 1, Tot. Refills 1, Hard Stop 09/03/19 10:32:00 EST, 07/05/19 10:32:00 EST, [id number], cm, 07/05/19 9:54:00 EST, Height, 60.9, kg, 08/14/18 15:46:00... Start Date: 07/05/19 Stop Date: 09/03/19 Status: Orderedfamotidine 20 mg oral tablet 20 mg, By Mouth, Daily, # 60 each, Refills 1, Tot. Refills 1, Maintenance, 09/03/19 10:32:00 EST, [facility], cm, 07/26/19 14:53:00 EST, Height, 60.9, kg,08/14/18 15:46:00 EST, Dry Weight Start Date: 09/03/19 Stop Date: 11/02/19 Status: Orderedferrous sulfate 325 mg oral enteric coated tablet 325 mg, 1, tablet, By Mouth, Daily, for 90 days, # 90 tablet, Refills 2, Tot. Refills 2, Hard Stop 03/31/20 10:32:00 EDT, 07/05/19 10:32:00 EST, [id number], cm, 07/05/19 9:54:00 EST, Height, 60.9, kg, /... Start Date: 07/05/19 Stop Date: 03/31/20 Status: Orderedferrous sulfate 325 mg oral enteric coated tablet 325 mg, 1, tablet, By Mouth, Daily, # 90 tablet, Refills 2, Tot. Refills 2, Maintenance, 03/31/20 10:32:00 EDT, Route to Pharmacy Electronically, [facility]/pharmacy #[id number], 150, cm, 07/26/19 14:53:00 EST, Height, 60.9, kg, 08/14/18 15:46:00 EST, Dry Weight Start Date: 03/31/20 Stop Date: 12/26/20 Status: OrderedFioricet oral capsule 1 capsule, By Mouth, Every 4 hours, PRN as needed, do not not to exceed 6 capsules/day and do not take more than 2-3x/ week, # 30 capsule, 0 Refills, Maintenance, 05/14/19 14:38:24 EDT, Capsule, 1 capsule By Mouth Every 4 hours,PRN:as needed,Instr:d... Start Date: 05/14/19 Status: OrderedFlonase 50 mcg/inh nasal spray 1 sprays, Nares, Both, 2 times a day, # 16 Gm, 5 Refills, Maintenance, 07/05/19 10:32:00 EST, [place],[facility]/pharmacy #[id number], 1 sprays Nares, Both 2 times a day, 150, cm, 07/05/19 9:54:00 EST, Height, 60.9,kg, 08/14/18 15:46:00 EST, Dry Weight Start Date: 07/05/19 Status: Orderedfolic acid 1 mg oral tablet 1 mg, 1, tablet, By Mouth, Daily, # 90 tablet, Refills 11, Tot. Refills 11, Maintenance, 12/14/17 16:29:02 EDT, Route to Pharmacy Electronically, [id number], [facility]/pharmacy #[id number] Start Date: 12/14/17 Status: OrderedFreestyle Lite Lancets See Instructions, # 100 units, Refills 3, Tot. Refills 3, Maintenance, check blood sugar 1x/day, 10/25/12 10:28:49 Start Date: 10/25/12 Status: OrderedFreestyle Lite Lancets See Instructions, # 50 each, Refills 11, Tot. Refills 11, Maintenance, use to check BS daily dx: E: 11.9, 07/26/18 10:15:29 EST, Compound Start Date: 07/26/18 Stop Date: 07/21/19 Status: OrderedFreestyle Lite Monitor See Instructions, # 1 units, Maintenance, use as directed. Dx: E11. 9, 06/06/17 11:40:33, Compound Start Date: 06/06/17 Status: OrderedFreestyle Lite Test Strips See Instructions, # 100 units, Refills 3, Tot. Refills 3, Maintenance, check blood sugar 1 time a day, 10/25/12 10:28:54 Start Date: 10/25/12 Status: OrderedFreestyle Lite Test Strips See Instructions, # 50 application, Refills 11, Tot. Refills 11, Maintenance, FSBS daily, Dx: E: 11.9, 07/24/18 15:22:20 EST, Compound Start Date: 07/24/18 Status: Orderedgabapentin 300 mg oral capsule 300 mg, 1, capsule, By Mouth, 3 times a day, for 30 days, # 90 capsule, Refills 5, Tot. Refills 5, Hard Stop 01/01/20 10:32:00 EDT, 07/05/19 10:32:00 EST, Route to Pharmacy Electronically, [facility]/pharmacy#[id number], 150, cm, 07/05/19 9:54:00 EST, Height, 60.... Start Date: 07/05/19 Stop Date: 01/01/20 Status: Orderedgabapentin 300 mg oral capsule 300 mg, 1, capsule, By Mouth, 3 times a day, # 90 capsule, Refills 5, Tot. Refills 5, Maintenance, 01/01/20 10:32:00 EDT, Route to Pharmacy Electronically, [facility]/pharmacy #[id number], 150, cm, 07/26/19 14:53:00 EST, Height, 60.9, kg, 08/14/18 15:46:00 EST, DrHubert. Start Date: 01/01/20 Stop Date: 06/29/20 Status: OrderedglipiZIDE 5 mg oral tablet, extended release 1 tablet = 5 mg, By Mouth, Daily, for 90 days, # 90 tablet, 6 Refills, Hard Stop 03/26/21 10:33:00 EDT, 07/05/19 10:33:00 EST, [facility]/pharmacy #[id number], 150, cm, 07/05/19 9:54:00 EST, Height, 60.9, kg, 08/14/18 15:46:00 EST, Dry Weight Start Date: 07/05/19 Stop Date: 03/26/21 Status: OrderedglipiZIDE 5 mg oral tablet, extended release 1 tablet = 5 mg, By Mouth, Daily, # 90 tablet, 6 Refills, Maintenance, 03/26/21 10:33:00 EDT, [facility]/pharmacy #[id number], 150, cm, 08/30/19 10:49:00 EST, Height, 60.9, kg, 08/14/18 15:46:00 EST, Dry Weight Start Date: 03/26/21 Stop Date: 12/16/22 Status: OrderedguaiFENesin 100 mg/5 mL oral liquid 5 mL = 100 mg, By Mouth, 4 times a day, PRN for cough, for 5 days, # 240 mL, 0 Refills, Acute 09/04/19 10:53:00 EST, 08/30/19 10:53:00 EST, Liquid, [facility]acy [facility][id number], 150, cm, 08/30/19 10:49:00 EST, Height, 60.9, kg, 08/14/18 15:46:00 EST, Dry Weight Start Date: 08/30/19 Stop Date: 09/04/19 Status: OrderedJanuvia 25 mg oral tablet See Instructions, SHANE BEAR POLOA TODOS [place], # 30 tablet, 5 Refills, Soft Stop, 07/04/19 7:29:00 EST, [id number], 150, cm, 05/14/19 14:08:00 EDT, Height, 60.9, kg, 08/14/18 15:46:00 EST, Dry Weight Start Date: 07/04/19 Status: Orderedlisinopril 40 mg oral tablet 1 tablet = 40 mg, By Mouth, Daily, for 90 days, # 90 tablet, 11 Refills, Hard Stop 04/30/24 0:00:00 EDT, 05/16/21 0:00:00 EDT, Tablet, [id number] Start Date: 05/16/21 Stop Date: 04/30/24 Status: Orderedlisinopril 40 mg oral tablet 1 tablet = 40 mg, By Mouth, Daily, # 90 tablet, 11 Refills, Maintenance, 04/30/24 0:00:00 EDT, Tablet, [id number], 150, cm, 08/30/19 10:49:00 EST, Height, 60.9, kg, 08/14/18 15:46:00 EST, Dry Weight Start Date: 04/30/24 Stop Date: 04/15/27 Status: OrderedmetFORMIN 1000 mg oral tablet 1 tablet = 1,000 mg, By Mouth, 2 times a day, # 180 tablet, 5 Refills, Maintenance, 08/30/19 10:49:00 EST, Tablet, [facility]/pharmacy #[id number], 150, cm, 08/30/19 10:49:00 EST, Height, 60.9, kg, 08/14/18 15:46:00 EST, Dry Weight Start Date: 08/30/19 Status: OrderedNuLYTELY Reyes oral powder for reconstitution See Instructions, as directed on package labeling split prep ordered, # 4,000 mL, 0 Refills, Maintenance, 12/06/17 16:02:06 EDT, REC Powder Start Date: 12/06/17 Status: OrderedpredniSONE 20 mg oral tablet 2 tablet = 40 mg, By Mouth, Daily, for 4 days, # 8 tablet, 0 Refills, Acute 09/03/19 10:52:00 EST, 08/30/19 10:52:00 EST, Tablet, [facility]/pharmacy #[id number], 150, cm, 08/30/19 10:49:00 EST, Height, 60.9, kg, 08/14/18 15:46:00 EST, Dry Weight Start Date: 08/30/19 Stop Date: 09/03/19 Status: OrderedPrevalite Packets 4 g/5.5 g oral powder for reconstitution See Instructions, 1 PACK/PACKET BY MOUTH 3 TIMES A DAY,X30 DAYS, # 90 pack/packet, 1 Refills, Soft Stop, 05/14/19 14:37:56 EDT Start Date: 05/14/19 Status: OrderedVitamin D3 2000 intl units oral tablet 1 tablet = 2,000 International_Units, By Mouth, Daily, for 90 days, # 90 tablet, 11 Refills, Hard Stop 06/19/22 10:31:00 EST, 07/05/19 10:31:00 EST, [id number], 150, cm, 07/05/19 9:54:00 EST, Height, 60.9, kg, 08/14/18 15:46:00 EST, Dry Weight Start Date: 07/05/19 Stop Date: 06/19/22 Status: OrderedVitamin D3 2000 intl units oral tablet 1 tablet = 2,000 International_Units, By Mouth, Daily, # 90 tablet, 11 Refills, Maintenance, 06/19/22 10:31:00 EST, [id number], 150, cm, 08/30/19 10:49:00 EST, Height, 60.9, kg, 08/14/18 15:46:00 EST, Dry Weight Start Date: 06/19/22 Stop Date: 06/03/25 Status: OrderedZithromax 250 mg oral tablet 1 pack/packet, By Mouth, Once, # 6 tablet, 0 Refills, Soft Stop, 08/30/19 10:53:00 EST, Tablet, [id number], 150, cm, 08/30/19 10:49:00 EST, Height, 60.9, kg, 08/14/18 15:46:00 EST, Dry Weight Start Date: 08/30/19 Status: Ordered Problem List Condition Effective Dates Status Health Status Informant Asthma(Confirmed) Active Diabetes Mellitus(Confirmed) Active Hypertension(Confirmed) Active Social History Social History Type Response Smoking Status Never smoker; Tobacco user i n household: No entered on: 06/06/17 Sex
--- OUTSIDE RECORDS SUMMARY | 2022-04-17 18:17 | XMS_ITS | Continuity of Care Document ---
:[address] [facility] Address [address] [place] [id number]- Care Team Providers Name Role Phone Ping Salazar DO Primary Care Physician Encounter [facility] [place] Date(s): 07/05/19 - 07/15/[address] [address]- [facility] Attending Physician: AdmMir alvarado8 Admitting Physician: AdmtrHeather Referring Physician: AdmtrMir8 Allergies, Adverse Reactions, Alerts Substance Reaction Severity [...] 650 mg, By Mouth, Once, lot # [id number] exp: 03/2020 mfg: [employer] Pharm, 0 Refills, [...] chamber, # 25 Gm, Refills 11, Tot. [id number], Maintenance, 07/05/19 10:30:00 EST, Aerosol, Route to Pharmacy Electronically, [id number], [facility]/pharmacy #[id number], 150, cm,... Start Date: 07/05/19 Status: OrderedAtivan 0.5 mg oral tablet 1 [...] 07/05/19 10:31:00 EST, Route to Pharmacy Electronically, [facility]/pharmacy #[id number], 150, cm, 07/05/19 9:54:00 EST, Height, [...] Daily, # 30 tablet, 11 Refills, Maintenance, 07/05/19 10:31:00 EST, [facility]/pharmacy #[id number], 150, cm, 07/05/19 9:54:00 EST, Height, 60.9, kg, 08/14/18 15:46:00 EST, Dry Weight Start Date: 07/05/19 Status: Orderedfamotidine 20 mg oral tablet 20 mg, By Mouth, Daily, # 60 each, Refills 1, Tot. Refills 1, Maintenance, 07/05/19 10:32:00 EST, Route to Pharmacy Electronically, [facility]/pharmacy #[id number], 150, cm, 07/05/19 9:54:00 EST, Height, 60.9, kg, 08/14/18 15:46:00 EST, Dry Weight Start Date: 07/05/19 Stop Date: 09/03/19 Status: Orderedferrous sulfate 325 mg oral enteric coated tablet 325 mg, 1, tablet, By Mouth, Daily, # 90 tablet, Refills 2, Tot. Refills 2, Maintenance, 07/05/19 10:32:00 EST, Route to Pharmacy Electronically, [facility]/pharmacy #[id number], 150, cm, 07/05/19 9:54:00 EST, Height, 60.9, kg, 08/14/18 15:46:00 EST, Dry Weight Start Date: 07/05/19 Stop Date: 03/31/20 Status: OrderedFioricet oral capsule 1 capsule, By [...] Gm, 5 Refills, Maintenance, 07/05/19 10:32:00 EST, [place],[facility]/pharmacy #[id number], 1 sprays Nares, Both 2 times a day, 150, cm, 07/05/19 9:54:00 EST, Height, 60.9,kg, 08/14/18 15:46:00 EST, Dry Weight Start Date: 07/05/19 Status: Orderedfolic acid 1 mg oral tablet 1 mg, 1, tablet, By Mouth, Daily, # 90 tablet, Refills 11, Tot. Refills 11, Maintenance, 12/14/17 16:29:02 EDT, Route to Pharmacy Electronically, [id number], [facility]/pharmacy #207 Start Date: 12/14/17 Status: OrderedFreestyle Lite Lancets [...] capsule, Refills 5, Tot. Refills 5, Maintenance, 07/05/19 10:32:00 EST, Route to Pharmacy Electronically, [facility]/pharmacy #207, 150, cm, 07/05/19 9:54:00EST, Height, 60.9, kg, 08/14/18 15:46:00 EST, Dry... Start Date: 07/05/19 Stop Date: 01/01/20 Status: OrderedglipiZIDE 5 mg oral tablet, extended release 1 tablet = 5 mg, By Mouth, Daily, # 90 tablet, 6 Refills, Maintenance, 07/05/19 10:33:00 EST, [facility]/pharmacy #[id number], 150, cm, 07/05/19 9:54:00 EST, Height, 60.9, kg, 08/14/18 15:46:00 EST, Dry Weight Start Date: 07/05/19 Stop Date: 03/26/21 Status: OrderedJanuvia 25 mg oral tablet See Instructions, SHANE CUELLARA TODOS LOS BIRD, # 30 tablet, 5 Refills, Soft Stop, 07/04/19 7:29:00 EST, [facility]/pharmacy #[id number], 150, cm, 05/14/19 14:08:00 EDT, Height, 60.9, kg, 08/14/18 15:46:00 EST, Dry Weight Start Date: 07/04/19 Status: Orderedlisinopril 40 mg oral tablet 1 tablet = 40 mg, By Mouth, Daily, # 90 tablet, 11 Refills, Maintenance, 05/16/21 0:00:00 EDT, Tablet Start Date: 05/16/21 Stop Date: 04/30/24 Status: Orderedlisinopril 40 mg oral tablet 1 tablet = 40 mg, By Mouth, Daily, for 90 days, # 90 tablet, 11 Refills, Hard Stop 05/16/21 0:00:00 EDT, 06/01/18 0:00:00 EST, Tablet Start Date: 06/01/18 Stop Date: 05/16/21 Status: OrderedmetFORMIN 1000 mg oral tablet 1 tablet = 1,000 mg, By Mouth, 2 times a day, # 180 tablet, 5 Refills, Maintenance, 07/05/19 10:33:00 EST, Tablet, [facility]/pharmacy #[id number], 150, cm, 07/05/19 9:54:00 EST, Height, 60.9, kg, 08/14/18 15:46:00EST, Dry Weight Start Date: 07/05/19 Status: OrderedNuLYTELY Reyse oral powder for reconstitution See Instructions, as [...] Daily, # 90 tablet, 11 Refills, Maintenance, 07/05/19 10:31:00 EST, [facility]/pharmacy #[id number], 150, cm, 07/05/19 9:54:00 EST, Height, 60.9, kg, 08/14/18 15:46:00 EST, Dry Weight Start Date: 07/05/19 Stop Date: 06/19/22 Status: Ordered Problem List Condition Effective Dates Status Health Status Informant Asthma(Confirmed) Active Diabetes Mellitus(Confirmed) Active Hypertension(Confirmed) Active Social History Social History Type Response Smoking Status Never smoker; Tobacco user i n household: No entered on: 06/06/17 Sex
--- OUTSIDE RECORDS SUMMARY | 2022-04-17 18:17 | XMS_ITS | Continuity of Care Document ---
:1955 Author Organization [facility] Address [address] [place] [address]- Care Team Providers Name Role Phone BannockPing Solorzano DO Primary Care Physician [place] [facility] [place]/14[place] - 07/07/[address] [address]- [facility] Attending Physician: Sachin Castellano NP Admitting Physician: Sachin Castellano NP Referring Physician: Tracy Loving Allergies, Adverse Reactions, Alerts Substance Reaction Severity [...] 650 mg, By Mouth, Once, lot # [id number] exp: 03/2020 mfg: [employer] Pharm, 0 Refills, [...] chamber, # 25 Gm, Refills 11, Tot. [id number], Maintenance, 07/05/19 10:30:00 EST, Aerosol, Route to Pharmacy Electronically, [id number], [facility]/pharmacy #[id number], 150, cm,... Start Date: 07/05/19 Status: [...] 07/05/19 10:31:00 EST, Route to Pharmacy Electronically, [facility]/pharmacy #[id number], 150, cm, 07/05/19 9:54:00 EST, Height, [...] tablet, 11 Refills, Maintenance, 07/05/19 10:31:00 EST, [facility]/pharmacy #[id number], 150, cm, 07/05/19 9:54:00 EST, Height, 60.9, kg, 08/14/18 15:46:00 EST, Dry Weight Start Date: 07/05/19 Status: Orderedfamotidine 20 mg oral tablet 20 mg, By Mouth, Daily, # 60 each, Refills 1, Tot. Refills 1, Maintenance, 07/05/19 10:32:00 EST, Route to Pharmacy Electronically, [facility]/pharmacy #[id number], 150, cm, 07/05/19 9:54:00 EST, Height, 60.9, kg, 08/14/18 15:46:00 EST, Dry Weight Start Date: 07/05/19 Stop Date: 09/03/19 Status: Orderedferrous sulfate 325 mg oral enteric coated tablet 325 mg, 1, tablet, By Mouth, Daily, # 90 tablet, Refills 2, Tot. Refills 2, Maintenance, 07/05/19 10:32:00 EST, Route to Pharmacy Electronically, [facility]/pharmacy #[id number], 150, cm, 07/05/19 9:54:00 EST, Height, [...] Gm, 5 Refills, Maintenance, 07/05/19 10:32:00 EST, [place],[facility]/pharmacy #207, 1 sprays Nares, Both 2 times a day, 150, cm, 07/05/19 9:54:00 EST, Height, 60.9,kg, 08/14/18 15:46:00 EST, Dry Weight Start Date: 07/05/19 Status: Orderedfolic acid 1 mg oral tablet 1 mg, 1, tablet, By Mouth, Daily, # 90 tablet, Refills 11, Tot. Refills 11, Maintenance, 12/14/17 16:29:02 EDT, Route to Pharmacy Electronically, [id number], [facility]/pharmacy #207 Start Date: 12/14/17 Status: OrderedFreestyle Lite [...] 07/05/19 10:32:00 EST, Route to Pharmacy Electronically, [facility]/pharmacy #[id number], 150, cm, 07/05/19 9:54:00EST, Height, 60.9, kg, 08/14/18 15:46:00 EST, Dry... Start Date: 07/05/19 Stop Date: 01/01/20 Status: OrderedglipiZIDE 5 mg oral tablet, extended release 1 tablet = 5 mg, By Mouth, Daily, # 90 tablet, 6 Refills, Maintenance, 07/05/19 10:33:00 EST, [facility]/pharmacy #[id number], 150, cm, 07/05/19 9:54:00 EST, Height, 60.9, kg, 08/14/18 15:46:00 EST, Dry Weight Start Date: 07/05/19 Stop Date: 03/26/21 Status: OrderedJanuvia 25 mg oral tablet See Instructions, SHANE HARMON LOS BIRD, # 30 tablet, 5 Refills, [...] 5 Refills, Maintenance, 07/05/19 10:33:00 EST, Tablet, [facility]/pharmacy #[id number], 150, cm, 07/05/19 9:54:00 EST, Height, 60.9, kg, 08/14/18 15:46:00EST, Dry Weight Start Date: 07/05/19 Status: OrderedNuLYTELY Reyes oral powder for reconstitution [...]
--- OUTSIDE RECORDS SUMMARY | 2022-04-17 18:17 | XMS_ITS | Continuity of Care Document ---
:1955 Author Organization [facility] Address [address] [place] [address]- Care Team Providers Name Role Phone Ping Salazar DO Primary Care Physician Encounter [facility] [place] Date(s): 07/03/19 - 08/26/[address] [address]- [facility] Attending Physician: Not on Staff, Attending MD Allergies, Adverse Reactions, Alerts Substance Reaction Severity [...] 650 mg, By Mouth, Once, lot # [id number] exp: 03/2020 mfg: [employer], 0 Refills, [...] chamber, # 25 Gm, Refills 11, Tot. [id number], Maintenance, 07/05/19 10:30:00 EST, Aerosol, Route to Pharmacy Electronically, [id number], [facility]/pharmacy #[id number], 150, cm,... Start Date: 07/05/19 [...] 07/05/19 10:31:00 EST, Route to Pharmacy Electronically, [facility]/pharmacy #[id number], 150, cm, 07/05/19 9:54:00 EST, [...] tablet, 11 Refills, Maintenance, 07/05/19 10:31:00 EST, [facility]/pharmacy #[id number], 150, cm, 07/05/19 9:54:00 EST, Height, 60.9, kg, 08/14/18 15:46:00 EST, Dry Weight Start Date: 07/05/19 Status: Orderedfamotidine 20 mg oral tablet 20 mg, By Mouth, Daily, # 60 each, Refills 1, Tot. Refills 1, Maintenance, 07/05/19 10:32:00 EST, Route to Pharmacy Electronically, [facility]/pharmacy #[id number], 150, cm, 07/05/19 9:54:00 EST, Height, 60.9, kg, 08/14/18 15:46:00 EST, Dry Weight Start Date: 07/05/19 Stop Date: 09/03/19 Status: Orderedferrous sulfate 325 mg oral enteric coated tablet 325 mg, 1, tablet, By Mouth, Daily, # 90 tablet, Refills 2, Tot. Refills 2, Maintenance, 07/05/19 10:32:00 EST, Route to Pharmacy Electronically, [facility]/pharmacy #2070, 150, cm, 07/05/19 9:54:00 EST, [...] Gm, 5 Refills, Maintenance, 07/05/19 10:32:00 EST, [place],[facility]/pharmacy #2070, 1 sprays Nares, Both 2 times a day, 150, cm, 07/05/19 9:54:00 EST, Height, 60.9,kg, 08/14/18 15:46:00 EST, Dry Weight Start Date: 07/05/19 Status: Orderedfolic acid 1 mg oral tablet 1 mg, 1, tablet, By Mouth, Daily, # 90 tablet, Refills 11, Tot. Refills 11, Maintenance, 12/14/17 16:29:02 EDT, Route to Pharmacy Electronically, [id number], [facility]/pharmacy #207 Start Date: 12/14/17 Status: OrderedFreestyle [...] 07/05/19 10:32:00 EST, Route to Pharmacy Electronically, [facility]/pharmacy #207, 150, cm, 07/05/19 9:54:00EST, Height, 60.9, kg, 08/14/18 15:46:00 EST, Dry... Start Date: 07/05/19 Stop Date: 01/01/20 Status: OrderedglipiZIDE 5 mg oral tablet, extended release 1 tablet = 5 mg, By Mouth, Daily, # 90 tablet, 6 Refills, Maintenance, 07/05/19 10:33:00 EST, [facility]/pharmacy #2071, 150, cm, 07/05/19 9:54:00 EST, Height, 60.9, kg, 08/14/18 15:46:00 EST, Dry Weight Start Date: 07/05/19 Stop Date: 03/26/21 Status: OrderedJanuvia 25 mg oral tablet See Instructions, SHANE CUELLARA TODOS LOS BIRD, # 30 tablet, 5 Refills, Soft Stop, 07/04/19 7:29:00 EST, [facility]/pharmacy #[id number], 150, cm, 05/14/19 14:08:00 EDT, [...] 5 Refills, Maintenance, 07/05/19 10:33:00 EST, Tablet, [facility]/pharmacy #[id number], 150, cm, 07/05/19 9:54:00 EST, [...]
--- OUTSIDE RECORDS SUMMARY | 2022-04-17 18:17 | XMS_ITS | Continuity of Care Document ---
:[address] [facility] Address [address] [place] [address]- Care Team Providers Name Role Phone Ping Salazar DO Primary Care Physician Encounter [facility] [place] Date(s): 09/06/19 - 09/16/[address] [address]- [facility] Attending Physician: AdmMir [email or web address] Admitting Physician: AdmtrHeather Referring Physician: Admtr, Heather Allergies, Adverse Reactions, Alerts Substance Reaction Severity [...] 650 mg, By Mouth, Once, lot # [id number] exp: 03/2020 mfg: [employer], 0 Refills, [...] chamber, # 25 Gm, Refills 11, Tot. [id number], Maintenance, 08/30/19 10:49:00 EST, Aerosol, Route to Pharmacy Electronically, [id number], [facility]/pharmacy #[id number], 150, cm,... Start Date: 08/30/19 [...] 07/05/19 10:31:00 EST, Route to Pharmacy Electronically, [facility]/pharmacy #[id number], 150, cm, 07/05/19 9:54:00 EST, [...] tablet, 11 Refills, Maintenance, 08/30/19 10:49:00 EST, [facility]/pharmacy #[id number], 150, cm, 08/30/19 10:49:00 EST, Height, 60.9, kg, 08/14/18 15:46:00 EST, Dry Weight Start Date: 08/30/19 Status: Orderedfamotidine 20 mg oral tablet 20 mg, By Mouth, Daily, # 60 each, Refills 1, Tot. Refills 1, Maintenance, 09/03/19 10:32:00 EST, Route to Pharmacy Electronically, [facility]/pharmacy #[id number], 150, cm, 07/26/19 14:53:00 EST, Height, 60.9, kg,08/14/18 15:46:00 EST, Dry Weight Start Date: 09/03/19 Stop Date: 11/02/19 Status: Orderedferrous sulfate 325 mg oral enteric coated tablet 325 mg, 1, tablet, By Mouth, Daily, # 90 tablet, Refills 2, Tot. Refills 2, Maintenance, 03/31/20 10:32:00 EDT, Route to Pharmacy Electronically, [facility]/pharmacy #[id number], 150, cm, 07/26/19 14:53:00 EST, Height, 60.9, [...] Gm, 5 Refills, Maintenance, 07/05/19 10:32:00 EST, [place],[facility]/pharmacy #207, 1 sprays Nares, Both 2 times a day, 150, cm, 07/05/19 9:54:00 EST, Height, 60.9,kg, 08/14/18 15:46:00 EST, Dry Weight Start Date: 07/05/19 Status: Orderedfolic acid 1 mg oral tablet 1 mg, 1, tablet, By Mouth, Daily, # 90 tablet, Refills 11, Tot. Refills 11, Maintenance, 12/14/17 16:29:02 EDT, Route to Pharmacy Electronically, [id number], [facility]/pharmacy #[id number] Start Date: 12/14/17 Status: OrderedFreestyle [...] 07/05/19 10:32:00 EST, Route to Pharmacy Electronically, [facility]/pharmacy#2070, 150, cm, 07/05/19 9:54:00 EST, Height, 60.... Start Date: 07/05/19 Stop Date: 01/01/20 Status: Orderedgabapentin 300 mg oral capsule 300 mg, 1, capsule, By Mouth, 3 times a day, # 90 capsule, Refills 5, Tot. Refills 5, Maintenance, 01/01/20 10:32:00 EDT, Route to Pharmacy Electronically, [facility]/pharmacy #[id number], 150, cm, 07/26/19 14:53:00 EST, Height, 60.9, kg, 08/14/18 15:46:00 EST, Start Date: 01/01/20 Stop Date: 06/29/20 Status: OrderedglipiZIDE 5 mg oral tablet, extended release 1 tablet = 5 mg, By Mouth, Daily, for 90 days, # 90 tablet, 6 Refills, Hard Stop 03/26/21 10:33:00 EDT, 07/05/19 10:33:00 EST, [facility]/pharmacy #[id number], 150, cm, 07/05/19 9:54:00 EST, Height, 60.9, kg, 08/14/18 15:46:00 EST, Dry Weight Start Date: 07/05/19 Stop Date: 03/26/21 Status: OrderedglipiZIDE 5 mg oral tablet, extended release 1 tablet = 5 mg, By Mouth, Daily, # 90 tablet, 6 Refills, Maintenance, 03/26/21 10:33:00 EDT, [facility]/pharmacy #[id number], 150, cm, 08/30/19 10:49:00 EST, Height, 60.9, kg, 08/14/18 15:46:00 EST, Dry Weight Start Date: 03/26/21 Stop Date: 12/16/22 Status: OrderedJanuvia 25 mg oral tablet See Instructions, SHANE BUSTOS TOS LOS BIRD, # 30 tablet, 5 Refills, Soft Stop, 07/04/19 7:29:00 EST, [facility]/pharmacy #[id number], 150, cm, 05/14/19 14:08:00 EDT, Height, 60.9, kg, 08/14/18 15:46:00 EST, Dry Weight Start Date: 07/04/19 Status: Orderedlisinopril 40 mg oral tablet 1 tablet = 40 mg, By Mouth, Daily, for 90 days, # 90 tablet, 11 Refills, Hard Stop 04/30/24 0:00:00 EDT, 05/16/21 0:00:00 EDT, Tablet, [facility]/pharmacy #[id number] Start Date: 05/16/21 Stop Date: 04/30/24 Status: OrderedmetFORMIN 1000 mg oral tablet 1 tablet = 1,000 mg, By Mouth, 2 times a day, # 180 tablet, 5 Refills, Maintenance, 08/30/19 10:49:00 EST, Tablet, [facility]/pharmacy #2070, 150, cm, 08/30/19 10:49:00 EST, Height, 60.9, [...] tablet, 11 Refills, Maintenance, 06/19/22 10:31:00 EST, [facility]/pharmacy #2070, 150, cm, 08/30/19 10:49:00 EST, Height, 60.9, kg, 08/14/18 15:46:00 EST, Dry Weight Start Date: 06/19/22 Stop Date: 06/03/25 Status: OrderedZithromax 250 mg oral tablet 1 pack/packet, By Mouth, Once, # 6 tablet, 0 Refills, Soft Stop, 08/30/19 10:53:00 EST, Tablet, [facility]/pharmacy #2071, 150, cm, 08/30/19 10:49:00 EST, Height, 60.9, kg, 08/14/18 15:46:00 EST, Dry Weight Start Date: 08/30/19 Status: Ordered Problem List Condition Effective Dates Status Health Status Informant Asthma(Confirmed) Active Diabetes Mellitus(Confirmed) Active Hypertension(Confirmed) Active Social History Social History Type Response Smoking Status Never smoker; Tobacco user i n household: No entered on: 06/06/17 Sex
--- OUTSIDE RECORDS SUMMARY | 2022-04-17 18:17 | XMS_ITS | Continuity of Care Document ---
:1955 Author Organization [facility] [place] Address [address], [address] [place] [address]- Care Team Providers Name Role Phone Ping Salazar DO Primary Care Physician Encounter 11/15/19 - 02/20/20 [facility] [address], [address] [place] [address]- [facility] Attending Physician: Christine Schroeder MD Admitting Physician: Christine Schroeder MD Referring Physician: Christine Schroeder MD Allergies, Adverse Reactions, Alerts Substance Reaction [...] 650 mg, By Mouth, Once, lot # [id number] exp: 03/2020 mfg: [employer], 0 Refills, [...] chamber, # 25 Gm, Refills 11, Tot. [id number], Maintenance, 08/30/19 10:49:00 EST, Aerosol, Route to Pharmacy Electronically, [id number], [facility]/pharmacy #[id number], 150, cm,... Start Date: 08/30/19 Status: [...] 11/02/19 16:30:00 EDT, Route to Pharmacy Electronically, [facility]/pharmacy #[id number], 150, cm, 08/30/19 10:49:00EST, Height, 60.9, [...] tablet, 11 Refills, Maintenance, 11/02/19 16:31:00 EDT, [facility]/pharmacy #1, 150, cm, 08/30/19 10:49:00 EST, Height, 60.9, kg, 08/14/18 15:46:00 EST, Dry Weight Start Date: 11/02/19 Status: Orderedfamotidine 20 mg oral tablet 20 mg, By Mouth, Daily, # 60 each, Refills 1, Tot. Refills 1, Maintenance, 09/03/19 10:32:00 EST, Route to Pharmacy Electronically, [facility]/pharmacy #[id number], 150, cm, 07/26/19 14:53:00 EST, Height, 60.9, kg,08/14/18 15:46:00 EST, Dry Weight Start Date: 09/03/19 Stop Date: 11/02/19 Status: Orderedferrous sulfate 325 mg oral enteric coated tablet 325 mg, 1, tablet, By Mouth, Daily, # 90 tablet, Refills 2, Tot. Refills 2, Maintenance, 03/31/20 10:32:00 EDT, Route to Pharmacy Electronically, [facility]/pharmacy #2070, 150, cm, 07/26/19 14:53:00 EST, Height, 60.9, kg, 08/14/18 15:46:00 EST, Dry Weight Start Date: 03/31/20 Stop Date: 12/26/20 Status: OrderedFioricet oral capsule 1 capsule, By Mouth, Every 4 hours, PRN as needed, do not not to exceed 6 capsules/day and do not take more than 2-3x/ week, # 30 capsule, 0 Refills, Maintenance, 10/10/19 8:24:00 EDT, Capsule, [facility]/pharmacy #207, 1 capsule By Mouth Every 4 hours,NH... Start Date: 10/10/19 Status: OrderedFlonase 50 mcg/inh nasal spray 1 sprays, Nares, Both, 2 times a day, # 16 Gm, 5 Refills, Maintenance, 07/05/19 10:32:00 EST, [place],[facility]/pharmacy #207, 1 sprays Nares, Both 2 times a day, 150, cm, 07/05/19 9:54:00 EST, Height, 60.9,kg, 08/14/18 15:46:00 EST, Dry Weight Start Date: 07/05/19 Status: Orderedfolic acid 1 mg oral tablet 1 mg, 1, tablet, By Mouth, Daily, # 90 tablet, Refills 11, Tot. Refills 11, Maintenance, 12/14/17 16:29:02 EDT, Route to Pharmacy Electronically, [id number], [facility]/pharmacy #[id number] Start Date: 12/14/17 Status: OrderedFreestyle Lite Lancets [...] 01/01/20 10:32:00 EDT, Route to Pharmacy Electronically, [facility]/pharmacy #[id number], 150, cm, 07/26/19 14:53:00 EST, Height, 60.9, kg, 08/14/18 15:46:00 EST, . Start Date: 01/01/20 Stop Date: 06/29/20 Status: OrderedglipiZIDE 5 mg oral tablet, extended release 1 tablet = 5 mg, By Mouth, Daily, for 90 days, # 90 tablet, 6 Refills, Hard Stop 03/26/21 10:33:00 EDT, 07/05/19 10:33:00 EST, [facility]/pharmacy #[id number], 150, cm, 07/05/19 9:54:00 EST, Height, 60.9, kg, 08/14/18 15:46:00 EST, Dry Weight Start Date: 07/05/19 Stop Date: 03/26/21 Status: OrderedglipiZIDE 5 mg oral tablet, extended release 1 tablet = 5 mg, By Mouth, Daily, # 90 tablet, 6 Refills, Maintenance, 03/26/21 10:33:00 EDT, [facility]/pharmacy #[id number], 150, cm, 08/30/19 10:49:00 EST, Height, 60.9, kg, 08/14/18 15:46:00 EST, Dry Weight Start Date: 03/26/21 Stop Date: 12/16/22 Status: OrderedJanuvia 25 mg oral tablet See Instructions, SHANE HARMON LOS BIRD, # 30 tablet, 5 Refills, Soft Stop, 02/19/20 13:09:00 EDT, [facility]/pharmacy #[id number], 150, cm, 08/30/19 10:49:00 EST, Height, 60.9, kg, 08/14/18 15:46:00 EST,Dry Weight Start Date: 02/19/20 Status: Orderedlisinopril 40 mg oral tablet 1 tablet = 40 mg, By Mouth, Daily, for 90 days, # 90 tablet, 11 Refills, Hard Stop 04/30/24 0:00:00 EDT, 05/16/21 0:00:00 EDT, Tablet, [facility]/pharmacy #[id number] Start Date: 05/16/21 Stop Date: 04/30/24 Status: Orderedlisinopril 40 mg oral tablet 1 tablet = 40 mg, By Mouth, Daily, for 90 days, # 90 tablet, 11 Refills, Hard Stop 04/15/27 0:00:00 EDT, 04/30/24 0:00:00 EDT, Tablet, [facility]/pharmacy #[id number], 150, cm, 08/30/19 10:49:00 EST, Height, 60.9, kg, 08/14/18 15:46:00 EST, Dry Weight Start Date: 04/30/24 Stop Date: 04/15/27 Status: OrderedmetFORMIN 1000 mg oral tablet 1 tablet = 1,000 mg, By Mouth, 2 times a day, # 180 tablet, 5 Refills, Maintenance, 08/30/19 10:49:00 EST, Tablet, [facility]/pharmacy #[id number], 150, cm, 08/30/19 10:49:00 EST, Height, [...] tablet, 11 Refills, Maintenance, 06/19/22 10:31:00 EST, [facility]/pharmacy #[id number], 150, cm, 08/30/19 10:49:00 EST, Height, [...]
--- OUTSIDE RECORDS SUMMARY | 2022-04-17 18:17 | XMS_ITS | Continuity of Care Document ---
:1955 Author Organization [facility] Address [address] [place] [id number]- Care Team Providers Name Role Phone Ping Salazar DO Primary Care Physician Encounter [facility] [place] Date(s): 07/26/19 - 08/05/19 [facility] [address] [place] [phone]- [facility] Attending Physician: Heather Nagy Admitting Physician: Heather Nagy Referring Physician: AdmtrHeather Allergies, Adverse Reactions, Alerts [...] 650 mg, By Mouth, Once, lot # [id number] exp: 03/2020 mfg: [employer], 0 Refills, [...] chamber, # 25 Gm, Refills 11, Tot. [id number], Maintenance, 07/05/19 10:30:00 EST, Aerosol, Route to Pharmacy Electronically, [id number], [facility]/pharmacy #[id number], 150, cm,... [...] Gm, 5 Refills, Maintenance, 07/05/19 10:32:00 EST, [place],[facility]/pharmacy #[id number], 1 sprays Nares, Both 2 times a day, 150, cm, 07/05/19 9:54:00 EST, Height, 60.9,kg, 08/14/18 15:46:00 EST, Dry Weight Start Date: 07/05/19 Status: Orderedfolic acid 1 mg oral tablet 1 mg, 1, tablet, By Mouth, Daily, # 90 tablet, Refills 11, Tot. Refills 11, Maintenance, 12/14/17 16:29:02 EDT, Route to Pharmacy Electronically, [id number], [facility]/pharmacy #[id number] Start Date: 12/14/17 Status: OrderedFreestyle Lite [...]
--- OUTSIDE RECORDS SUMMARY | 2022-04-17 18:17 | XMS_ITS | Continuity of Care Document ---
:1955 Author Organization [facility] Address [address] [place] [address]- Care Team Providers Name Role Phone Ping Salazar DO Primary Care Physician Encounter [facility] [place] Date(s): 11/02/19 - 11/12/[address] [address]- [facility] Attending Physician: AdmMir [email or web address] Admitting Physician: AdmtrHeather [...] 650 mg, By Mouth, Once, lot # [id number] exp: 03/2020 mfg: Major Pharm, 0 Refills, [...] chamber, # 25 Gm, Refills 11, Tot. [id number], Maintenance, 08/30/19 10:49:00 EST, Aerosol, Route to Pharmacy Electronically, [id number], [facility]/pharmacy #[id number], 150, cm,... Start Date: [...] 16:32:00 EDT, Compound Start Date: 11/02/19 Status: Orderedchlorthalidone 25 mg oral tablet 25 mg, 1, tablet, By Mouth, Daily, for 30 days, SHANE Lima , # 30 tablet, Refills 2, Tot. Refills 2, Physician Stop 02/04/20 16:00:00 EDT, 11/06/19 16:00:00 EDT, Route to Pharmacy Electronically, [facility]/pharmacy #[id number], 150, cm, ... Start Date: 11/06/19 Stop Date: 02/04/20 Status: OrderedcloNIDine 0.1 mg oral tablet 0.1 mg, 1, tablet, By Mouth, 2 times a day, # 180 tablet, Refills 3, Tot. Refills 3, Maintenance, 11/02/19 16:30:00 EDT, Route to Pharmacy Electronically, [facility]/pharmacy #[id number], 150, cm, 08/30/19 10:49:00EST, Height, 60.9, [...] tablet, 11 Refills, Maintenance, 11/02/19 16:31:00 EDT, [id number], cm, 08/30/19 10:49:00 EST, Height, 60.9, kg, 08/14/18 15:46:00 EST, Dry Weight Start Date: 11/02/19 Status: Orderedfamotidine 20 mg oral tablet 20 mg, By Mouth, Daily, # 60 each, Refills 1, Tot. Refills 1, Maintenance, 09/03/19 10:32:00 EST, [facility] to Pharm[facility] Electronically, [id number], 150, cm, 07/26/19 14:53:00 EST, Height, 60.9, kg,08/14/18 15:46:00 EST, Dry Weight Start Date: 09/03/19 Stop Date: 11/02/19 Status: Orderedferrous sulfate 325 mg oral enteric coated tablet 325 mg, 1, tablet, By Mouth, Daily, # 90 tablet, Refills 2, Tot. Refills 2, Maintenance, 03/31/20 10:32:00 EDT, Route to Pharmacy Electronically, [id number], 150, cm, 07/26/19 14:53:00 EST, Height, 60.9, kg, 08/14/18 15:46:00 EST, Dry Weight Start Date: 03/31/20 Stop Date: 12/26/20 Status: OrderedFioricet oral capsule 1 capsule, By Mouth, Every 4 hours, PRN as needed, do not not to exceed 6 capsules/day and do not take more than 2-3x/ week, # 30 capsule, 0 Refills, Maintenance, 10/10/19 8:24:00 EDT, Capsule, [facility]/pharmacy #207, 1 capsule By Mouth Every 4 hours,[place]... Start Date: 10/10/19 Status: OrderedFlonase 50 mcg/inh nasal spray 1 sprays, Nares, Both, 2 times a day, # 16 Gm, 5 Refills, Maintenance, 07/05/19 10:32:00 EST, [place],[facility]/pharmacy #[id number], 1 sprays Nares, Both 2 times a day, 150, cm, 07/05/19 9:54:00 EST, Height, 60.9,kg, 08/14/18 15:46:00 EST, Dry Weight Start Date: 07/05/19 Status: Orderedfolic acid 1 mg oral tablet 1 mg, 1, tablet, By Mouth, Daily, # 90 tablet, Refills 11, Tot. Refills 11, Maintenance, 12/14/17 16:29:02 EDT, Route to Pharmacy Electronically, [id number], [facility]/pharmacy #[id number] Start Date: 12/14/17 Status: OrderedFreestyle Lite Lancets [...] 07/05/19 10:32:00 EST, Route to Pharmacy Electronically, [facility]/pharmacy#2071, 150, cm, 07/05/19 9:54:00 EST, Height, 60.... Start Date: 07/05/19 Stop Date: 01/01/20 Status: Orderedgabapentin 300 mg oral capsule 300 mg, 1, capsule, By Mouth, 3 times a day, # 90 capsule, Refills 5, Tot. Refills 5, Maintenance, 01/01/20 10:32:00 EDT, Route to Pharmacy Electronically, [facility]/pharmacy #[id number], 150, cm, 07/26/19 14:53:00 EST, Height, 60.9, kg, 08/14/18 15:46:00 EST, DrAlli.. Start Date: 01/01/20 Stop Date: 06/29/20 Status: OrderedglipiZIDE 5 mg oral tablet, extended release 1 tablet = 5 mg, By Mouth, Daily, for 90 days, # 90 tablet, 6 Refills, Hard Stop 03/26/21 10:33:00 EDT, 07/05/19 10:33:00 EST, [facility]/pharmacy #[id number], 150, cm, 07/05/19 9:54:00 [...] 0:00:00 EDT, 05/16/21 0:00:00 EDT, Tablet, [facility] Start Date: 05/16/21 Stop Date: 04/30/24 Status: Orderedlisinopril 40 mg oral tablet 1 tablet = 40 mg, By Mouth, Daily, for 90 days, # 90 tablet, 11 Refills, Hard Stop 04/15/27 0:00:00 EDT, 04/30/24 0:00:00 EDT, Tablet, [id number], 150, cm, 08/30/19 10:49:00 EST, Height, 60.9, kg, 08/14/18 15:46:00 EST, Dry Weight Start Date: 04/30/24 Stop Date: 04/15/27 Status: OrderedmetFORMIN 1000 mg oral tablet 1 tablet = 1,000 mg, By Mouth, 2 times a day, # 180 tablet, 5 Refills, Maintenance, 08/30/19 10:49:00 EST, Tablet, [id number], 150, cm, 08/30/19 [...] tablet, 11 Refills, Maintenance, 06/19/22 10:31:00 EST, [facility]/pharmacy #[id number], 150, cm, 08/30/19 10:49:00 [...]
--- OUTSIDE RECORDS SUMMARY | 2022-04-17 18:17 | XMS_ITS | Continuity of Care Document ---
:1955 Author Organization [facility] Address [address], [address], [address] [place] [address]- Care Team Providers Name Role Phone Ping Salazar DO Primary Care Physician [place] [facility] [place]): [place]/15[place]20 - 03/16/20 [facility] [address], [address], [address] [place] [address]- [facility] Attending Physician: Heather Nagy Admitting Physician: AdmtrHeather Referring Physician: Admtr, Ar8 Allergies, Adverse Reactions, Alerts Substance Reaction Severity [...] 650 mg, By Mouth, Once, lot # [id number] exp: 03/2020 mfg: [employer], 0 Refills, [...] chamber, # 25 Gm, Refills 11, Tot. [id number], Maintenance, 08/30/19 10:49:00 EST, Aerosol, Route to Pharmacy Electronically, [id number], [facility]/pharmacy #[id number], 150, cm,... Start Date: 08/30/19 [...] 11/02/19 16:30:00 EDT, Route to Pharmacy Electronically, [facility]/pharmacy #[id number], 150, cm, 08/30/19 10:49:00EST, Height, [...] tablet, 11 Refills, Maintenance, 11/02/19 16:31:00 EDT, [facility]/pharmacy #[id number], 150, cm, 08/30/19 10:49:00 EST, Height, 60.9, kg, 08/14/18 15:46:00 EST, Dry Weight Start Date: 11/02/19 Status: Orderedfamotidine 20 mg oral tablet 20 mg, By Mouth, Daily, # 60 each, Refills 1, Tot. Refills 1, Maintenance, 09/03/19 10:32:00 EST, Route to Pharmacy Electronically, [facility]/pharmacy #[id number], 150, cm, 07/26/19 14:53:00 EST, Height, 60.9, kg,08/14/18 15:46:00 EST, Dry Weight Start Date: 09/03/19 Stop Date: 11/02/19 Status: Orderedferrous sulfate 325 mg oral enteric coated tablet 325 mg, 1, tablet, By Mouth, Daily, # 90 tablet, Refills 2, Tot. Refills 2, Maintenance, 03/31/20 10:32:00 EDT, Route to Pharmacy Electronically, [facility]/pharmacy #[id number], 150, cm, 07/26/19 14:53:00 EST, Height, 60.9, kg, 08/14/18 15:46:00 EST, Dry Weight Start Date: 03/31/20 Stop Date: 12/26/20 Status: OrderedFioricet oral capsule 1 capsule, By Mouth, Every 4 hours, PRN as needed, do not not to exceed 6 capsules/day and do not take more than 2-3x/ week, # 30 capsule, 0 Refills, Maintenance, 10/10/19 8:24:00 EDT, Capsule, [facility]/pharmacy #[id number], 1 capsule By Mouth Every 4 hours,[place]... Start Date: 10/10/19 Status: OrderedFlonase 50 mcg/inh nasal spray 1 sprays, Nares, Both, 2 times a day, # 16 Gm, 5 Refills, Maintenance, 07/05/19 10:32:00 EST, [place],[facility]/pharmacy #2071, 1 sprays Nares, Both 2 times a day, 150, cm, 07/05/19 9:54:00 EST, Height, 60.9,kg, 08/14/18 15:46:00 EST, Dry Weight Start Date: 07/05/19 Status: Orderedfolic acid 1 mg oral tablet 1 mg, 1, tablet, By Mouth, Daily, # 90 tablet, Refills 11, Tot. Refills 11, Maintenance, 12/14/17 16:29:02 EDT, Route to Pharmacy Electronically, [id number], [facility]/pharmacy #[id number] Start Date: 12/14/17 Status: OrderedFreestyle Lite Lancets [...] 01/01/20 10:32:00 EDT, Route to Pharmacy Electronically, [facility]/pharmacy #[id number], 150, cm, 07/26/19 14:53:00 EST, Height, 60.9, kg, 08/14/18 15:46:00 EST, . Start Date: 01/01/20 Stop Date: 06/29/20 Status: OrderedglipiZIDE 5 mg oral tablet, extended release 1 tablet = 5 mg, By Mouth, Daily, for 90 days, # 90 tablet, 6 Refills, Hard Stop 03/26/21 10:33:00 EDT, 07/05/19 10:33:00 EST, [facility]/pharmacy #[id number], 150, cm, 07/05/19 9:54:00 EST, Height, 60.9, kg, 08/14/18 15:46:00 EST, Dry Weight Start Date: 07/05/19 Stop Date: 03/26/21 Status: OrderedglipiZIDE 5 mg oral tablet, extended release 1 tablet = 5 mg, By Mouth, Daily, # 90 tablet, 6 Refills, Maintenance, 03/26/21 10:33:00 EDT, [facility]/pharmacy #[id number], 150, cm, 08/30/19 10:49:00 EST, Height, 60.9, kg, 08/14/18 15:46:00 EST, Dry Weight Start Date: 03/26/21 Stop Date: 12/16/22 Status: OrderedJanuvia 25 mg oral tablet See Instructions, [facility], # 30 tablet, 5 Refills, Soft Stop, 02/19/20 13:09:00 EDT, [facility]/pharmacy #[id number], 150, cm, 08/30/19 10:49:00 EST, Height, 60.9, kg, 08/14/18 15:46:00 EST,Dry Weight Start Date: 02/19/20 Status: Orderedlisinopril 40 mg oral tablet 1 tablet = 40 mg, By Mouth, Daily, for 90 days, # 90 tablet, 11 Refills, Hard Stop 04/30/24 0:00:00 EDT, 05/16/21 0:00:00 EDT, Tablet, [facility]/pharmacy #[id number] Start Date: 05/16/21 Stop Date: 04/30/24 Status: Orderedlisinopril 40 mg oral tablet 1 tablet = 40 mg, By Mouth, Daily, for 90 days, # 90 tablet, 11 Refills, Hard Stop 04/15/27 0:00:00 EDT, 04/30/24 0:00:00 EDT, Tablet, [facility]/pharmacy #2071, 150, cm, 08/30/19 10:49:00 EST, Height, 60.9, kg, 08/14/18 15:46:00 EST, Dry Weight Start Date: 04/30/24 Stop Date: 04/15/27 Status: OrderedmetFORMIN 1000 mg oral tablet 1 tablet = 1,000 mg, By Mouth, 2 times a day, # 180 tablet, 5 Refills, Maintenance, 08/30/19 10:49:00 EST, Tablet, [facility]/pharmacy #[id number], 150, cm, 08/30/19 10:49:00 EST, [...] tablet, 11 Refills, Maintenance, 06/19/22 10:31:00 EST, [facility]/pharmacy #[id number], 150, cm, 08/30/19 10:49:00 EST, [...]
--- OUTSIDE RECORDS SUMMARY | 2022-04-17 18:17 | XMS_ITS | Continuity of Care Document ---
:1955 Author Organization [facility] Address [address] [place] [address]- Care Team Providers Name Role Phone UvaldePing islas DO Primary Care Physician [place] [facility] [place]/01/[place] - 12/02/[address] [address]- [facility] Attending Physician: Jovany Jesus MD Allergies, Adverse Reactions, Alerts Substance Reaction [...] 650 mg, By Mouth, Once, lot # [id number] exp: 03/2020 mfg: [employer], 0 Refills, [...] chamber, # 25 Gm, Refills 11, Tot. [id number], Maintenance, 08/30/19 10:49:00 EST, Aerosol, Route to Pharmacy Electronically, [id number], [facility]/pharmacy #[id number], 150, cm,... Start Date: 08/30/19 [...] 11/06/19 16:00:00 EDT, Route to Pharmacy Electronically, [facility]/pharmacy #[id number], 150, cm, 08/30/... Start Date: 11/06/19 Stop Date: 02/04/20 Status: OrderedcloNIDine 0.1 mg oral tablet 0.1 mg, 1, tablet, By Mouth, 2 times a day, # 180 tablet, Refills 3, Tot. Refills 3, Maintenance, 11/02/19 16:30:00 EDT, Route to Pharmacy Electronically, [id number], 150, cm, 08/30/19 10:49:00EST, Height, 60.9, [...] tablet, 11 Refills, Maintenance, 11/02/19 16:31:00 ED[facility], [facility], 08/30/19 10:49:00 EST, Height, 60.9, kg, 08/14/18 15:46:00 EST, Dry Weight Start Date: 11/02/19 Status: Orderedfamotidine 20 mg oral tablet 20 mg, By Mouth, Daily, # 60 each, Refills 1, Tot. Refills 1, Maintenance, 09/03/19 10:32:00 EST, [facility], cm, 07/26/19 14:53:00 EST, Height, 60.9, kg,08/14/18 15:46:00 EST, Dry Weight Start Date: 09/03/19 Stop Date: 11/02/19 Status: Orderedferrous sulfate 325 mg oral enteric coated tablet 325 mg, 1, tablet, By Mouth, Daily, # 90 tablet, Refills 2, Tot. Refills 2, Maintenance, 03/31/20 10:32:00 EDT, [facility], [id number], cm, 07/26/19 14:53:00 EST, Height, 60.9, kg, 08/14/18 15:46:00 EST, Dry Weight Start Date: 03/31/20 Stop Date: 12/26/20 Status: OrderedFioricet oral capsule 1 capsule, By Mouth, Every 4 hours, PRN as needed, do not not to exceed 6 capsules/day and do not take more than 2-3x/ week, # 30 capsule, 0 Refills, Maintenance, 10/10/19 8:24:00 EDT, Capsule, [facility]/pharmacy #207, 1 capsule By Mouth Every 4 hours,[place]... Start Date: 10/10/19 Status: OrderedFlonase 50 mcg/inh nasal spray 1 sprays, Nares, Both, 2 times a day, # 16 Gm, 5 Refills, Maintenance, 07/05/19 10:32:00 EST, [place],[facility]/pharmacy #2070, 1 sprays Nares, Both 2 times a day, 150, cm, 07/05/19 9:54:00 EST, Height, 60.9,kg, 08/14/18 15:46:00 EST, Dry Weight Start Date: 07/05/19 Status: Orderedfolic acid 1 mg oral tablet 1 mg, 1, tablet, By Mouth, Daily, # 90 tablet, Refills 11, Tot. Refills 11, Maintenance, 12/14/17 16:29:02 EDT, Route to Pharmacy Electronically, [id number], [facility]/pharmacy #2070 Start Date: 12/14/17 Status: OrderedFreestyle Lite [...] 07/05/19 10:32:00 EST, Route to Pharmacy Electronically, [facility]/pharmacy#2071, 150, cm, 07/05/19 9:54:00 EST, Height, 60.... Start Date: 07/05/19 Stop Date: 01/01/20 Status: Orderedgabapentin 300 mg oral capsule 300 mg, 1, capsule, By Mouth, 3 times a day, # 90 capsule, Refills 5, Tot. Refills 5, Maintenance, 01/01/20 10:32:00 EDT, Route to Pharmacy Electronically, [facility]/pharmacy #2071, 150, cm, 07/26/19 14:53:00 EST, Height, 60.9, kg, 08/14/18 15:46:00 EST, Start Date: 01/01/20 Stop Date: 06/29/20 Status: OrderedglipiZIDE 5 mg oral tablet, extended release 1 tablet = 5 mg, By Mouth, Daily, for 90 days, # 90 tablet, 6 Refills, Hard Stop 03/26/21 10:33:00 EDT, 07/05/19 10:33:00 EST, [facility]/pharmacy #2071, 150, cm, 07/05/19 9:54:00 EST, Height, 60.9, kg, 08/14/18 15:46:00 EST, Dry Weight Start Date: 07/05/19 Stop Date: 03/26/21 Status: OrderedglipiZIDE 5 mg oral tablet, extended release 1 tablet = 5 mg, By Mouth, Daily, # 90 tablet, 6 Refills, Maintenance, 03/26/21 10:33:00 EDT, [facility]/pharmacy #2071, 150, cm, 08/30/19 10:49:00 EST, [...] 04/30/24 0:00:00 EDT, 05/16/21 0:00:00 EDT, Tablet, [facility]/pharmacy #207 Start Date: 05/16/21 Stop Date: 04/30/24 Status: Orderedlisinopril 40 mg oral tablet 1 tablet = 40 mg, By Mouth, Daily, for 90 days, # 90 tablet, 11 Refills, Hard Stop 04/15/27 0:00:00 EDT, 04/30/24 0:00:00 EDT, Tablet, [facility]/pharmacy #2071, 150, cm, 08/30/19 10:49:00 EST, Height, 60.9, kg, 08/14/18 15:46:00 EST, Dry Weight Start Date: 04/30/24 Stop Date: 04/15/27 Status: OrderedmetFORMIN 1000 mg oral tablet 1 tablet = 1,000 mg, By Mouth, 2 times a day, # 180 tablet, 5 Refills, Maintenance, 08/30/19 10:49:00 EST, Tablet, [facility]/pharmacy #2071, 150, cm, 08/30/19 10:49:00 EST, [...] tablet, 11 Refills, Maintenance, 06/19/22 10:31:00 EST, [facility]/pharmacy #[id number], 150, cm, 08/30/19 10:49:00 EST, [...]
--- OUTSIDE RECORDS SUMMARY | 2022-04-17 18:17 | XMS_ITS | Continuity of Care Document ---
:1955 Author Organization [facility] Address [address] [facility], 3rd Floor, [address] [place] [id number]- Care Team Providers Name Role Phone Ping Salazar DO Primary Care Physician Encounter [facility] [place] Date(s): 01/16/20 - 02/15/20 [facility] [address], [address], [address] [place] [id number]- [facility] Allergies, Adverse Reactions, Alerts Substance Reaction Severity [...] 650 mg, By Mouth, Once, lot # [id number] exp: 03/2020 mfg: [employer], 0 Refills, [...] chamber, # 25 Gm, Refills 11, Tot. [id number], Maintenance, 08/30/19 10:49:00 EST, Aerosol, Route to Pharmacy Electronically, [id number], [id number], cm,... Start Date: 08/30/19 Status: [...] 11/02/19 16:30:00 EDT, [facility]ically, [id number], cm, 08/30/19 10:49:00EST, Height, 60.9, [...] tablet, 11 Refills, Maintenance, 11/02/19 16:31:00 EDT, [facility], 150, cm, 08/30/19 10:49:00 EST, Height, 60.9, kg, 08/14/18 15:46:00 EST, Dry Weight Start Date: 11/02/19 Status: Orderedfamotidine 20 mg oral tablet 20 mg, By Mouth, Daily, # 60 each, Refills 1, Tot. Refills 1, Maintenance, 09/03/19 10:32:00 EST, Route to Pharmacy Electronically, [facility]/pharmacy #[id number], 150, cm, 07/26/19 14:53:00 EST, Height, 60.9, kg,08/14/18 15:46:00 EST, Dry Weight Start Date: 09/03/19 Stop Date: 11/02/19 Status: Orderedferrous sulfate 325 mg oral enteric coated tablet 325 mg, 1, tablet, By Mouth, Daily, # 90 tablet, Refills 2, Tot. Refills 2, Maintenance, 03/31/20 10:32:00 EDT, Route to Pharmacy Electronically, [facility]/pharmacy #[id number], 150, cm, 07/26/19 14:53:00 EST, Height, 60.9, kg, 08/14/18 15:46:00 EST, Dry Weight Start Date: 03/31/20 Stop Date: 12/26/20 Status: OrderedFioricet oral capsule 1 capsule, By Mouth, Every 4 hours, PRN as needed, do not not to exceed 6 capsules/day and do not take more than 2-3x/ week, # 30 capsule, 0 Refills, Maintenance, 10/10/19 8:24:00 EDT, Capsule, [facility]/pharmacy #2070, 1 capsule By Mouth Every 4 hours,[place]... Start Date: 10/10/19 Status: OrderedFlonase 50 mcg/inh nasal spray 1 sprays, Nares, Both, 2 times a day, # 16 Gm, 5 Refills, Maintenance, 07/05/19 10:32:00 EST, [place],[facility]/pharmacy #2070, 1 sprays Nares, Both 2 times a day, 150, cm, 07/05/19 9:54:00 EST, Height, 60.9,kg, 08/14/18 15:46:00 EST, Dry Weight Start Date: 07/05/19 Status: Orderedfolic acid 1 mg oral tablet 1 mg, 1, tablet, By Mouth, Daily, # 90 tablet, Refills 11, Tot. Refills 11, Maintenance, 12/14/17 16:29:02 EDT, Route to Pharmacy Electronically, [id number], [facility]/pharmacy #[id number] Start Date: 12/14/17 Status: OrderedFreestyle Lite Lancets [...] 01/01/20 10:32:00 EDT, Route to Pharmacy Electronically, [facility]/pharmacy #[id number], 150, cm, 07/26/19 14:53:00 EST, Height, 60.9, kg, 08/14/18 15:46:00 EST, Start Date: 01/01/20 Stop Date: 06/29/20 Status: OrderedglipiZIDE 5 mg oral tablet, extended release 1 tablet = 5 mg, By Mouth, Daily, for 90 days, # 90 tablet, 6 Refills, Hard Stop 03/26/21 10:33:00 EDT, 07/05/19 10:33:00 EST, [facility]/pharmacy #[id number], 150, cm, 07/05/19 9:54:00 EST, Height, 60.9, kg, 08/14/18 15:46:00 EST, Dry Weight Start Date: 07/05/19 Stop Date: 03/26/21 Status: OrderedglipiZIDE 5 mg oral tablet, extended release 1 tablet = 5 mg, By Mouth, Daily, # 90 tablet, 6 Refills, Maintenance, 03/26/21 10:33:00 EDT, [facility]/pharmacy #[id number], 150, cm, 08/30/19 10:49:00 EST, Height, 60.9, kg, 08/14/18 15:46:00 EST, Dry Weight Start Date: 03/26/21 Stop Date: 12/16/22 Status: OrderedJanuvia 25 mg oral tablet See Instructions, [facility], # 30 tablet, 5 Refills, Soft Stop, 07/04/19 7:29:00 EST, [facility]/pharmacy #[id number], 150, cm, 05/14/19 14:08:00 EDT, Height, 60.9, kg, 08/14/18 15:46:00 EST, Dry Weight Start Date: 07/04/19 Status: Orderedlisinopril 40 mg oral tablet 1 tablet = 40 mg, By Mouth, Daily, for 90 days, # 90 tablet, 11 Refills, Hard Stop 04/30/24 0:00:00 EDT, 05/16/21 0:00:00 EDT, Tablet, [facility]/pharmacy #207 Start Date: 05/16/21 Stop Date: 04/30/24 Status: Orderedlisinopril 40 mg oral tablet 1 tablet = 40 mg, By Mouth, Daily, for 90 days, # 90 tablet, 11 Refills, Hard Stop 04/15/27 0:00:00 EDT, 04/30/24 0:00:00 EDT, Tablet, [facility]/pharmacy #[id number], 150, cm, 08/30/19 10:49:00 EST, Height, 60.9, kg, 08/14/18 15:46:00 EST, Dry Weight Start Date: 04/30/24 Stop Date: 04/15/27 Status: OrderedmetFORMIN 1000 mg oral tablet 1 tablet = 1,000 mg, By Mouth, 2 times a day, # 180 tablet, 5 Refills, Maintenance, 08/30/19 10:49:00 EST, Tablet, [facility]/pharmacy #[id number], 150, cm, 08/30/19 10:49:00 EST, [...]
--- OUTSIDE RECORDS SUMMARY | 2022-04-17 18:17 | XMS_ITS | Continuity of Care Document ---
:1955 Author Organization [facility] Address [address] [place] [address]- Care Team Providers Name Role Phone SebastianPing Solorzano DO Primary Care Physician Encounter [facility] Date(s): 08/27/19 - 10/25/[address] [address]- [facility] Attending Physician: Christine Schroeder MD Admitting Physician: [...] 650 mg, By Mouth, Once, lot # [id number] exp: 03/2020 mfg: [employer], 0 Refills, [...] chamber, # 25 Gm, Refills 11, Tot. [id number], Maintenance, 08/30/19 10:49:00 EST, Aerosol, Route to Pharmacy Electronically, [id number], [facility]/pharmacy #[id number], 150, cm,... Start Date: [...] 07/05/19 10:31:00 EST, Route to Pharmacy Electronically, [facility]/pharmacy #[id number], 150, cm, 07/05/19 9:54:00 [...] tablet, 11 Refills, Maintenance, 08/30/19 10:49:00 EST, [facility]/pharmacy #[id number], 150, cm, 08/30/19 10:49:00 EST, Height, 60.9, kg, 08/14/18 15:46:00 EST, Dry Weight Start Date: 08/30/19 Status: Orderedfamotidine 20 mg oral tablet 20 mg, By Mouth, Daily, # 60 each, Refills 1, Tot. Refills 1, Maintenance, 09/03/19 10:32:00 EST, Route to Pharmacy Electronically, [facility]/pharmacy #[id number], 150, cm, 07/26/19 14:53:00 EST, Height, 60.9, kg,08/14/18 15:46:00 EST, Dry Weight Start Date: 09/03/19 Stop Date: 11/02/19 Status: Orderedferrous sulfate 325 mg oral enteric coated tablet 325 mg, 1, tablet, By Mouth, Daily, # 90 tablet, Refills 2, Tot. Refills 2, Maintenance, 03/31/20 10:32:00 EDT, Route to Pharmacy Electronically, [facility]/pharmacy #[id number], 150, cm, 07/26/19 14:53:00 EST, Height, 60.9, kg, 08/14/18 15:46:00 EST, Dry Weight Start Date: 03/31/20 Stop Date: 12/26/20 Status: OrderedFioricet oral capsule 1 capsule, By Mouth, Every 4 hours, PRN as needed, do not not to exceed 6 capsules/day and do not take more than 2-3x/ week, # 30 capsule, 0 Refills, Maintenance, 10/10/19 8:24:00 EDT, Capsule, [facility]/pharmacy #[id number], 1 capsule By Mouth Every 4 hours,ND... Start Date: 10/10/19 Status: OrderedFlonase 50 mcg/inh nasal spray 1 sprays, Nares, Both, 2 times a day, # 16 Gm, 5 Refills, Maintenance, 07/05/19 10:32:00 EST, [place],[facility]/pharmacy #[id number], 1 sprays Nares, Both 2 times a day, 150, cm, 07/05/19 9:54:00 EST, Height, 60.9,kg, 08/14/18 15:46:00 EST, Dry Weight Start Date: 07/05/19 Status: Orderedfolic acid 1 mg oral tablet 1 mg, 1, tablet, By Mouth, Daily, # 90 tablet, Refills 11, Tot. Refills 11, Maintenance, 12/14/17 16:29:02 EDT, Route to Pharmacy Electronically, [id number], [facility]/pharmacy #[id number] Start Date: 12/14/17 Status: OrderedFreestyle Lite Lancets [...] 07/05/19 10:32:00 EST, [id number], cm, 07/05/19 9:54:00 EST, Height, 60.... Start Date: 07/05/19 Stop Date: 01/01/20 Status: Orderedgabapentin 300 mg oral capsule 300 mg, 1, capsule, By Mouth, 3 times a day, # 90 capsule, Refills 5, Tot. Refills 5, Maintenance, 01/01/20 10:32:00 EDT, Route to Pharmacy Electronically, [facility]/pharmacy #[id number], 150, cm, 07/26/19 14:53:00 EST, Height, 60.9, kg, 08/14/18 15:46:00 EST, DrGabriella Start Date: 01/01/20 Stop Date: 06/29/20 Status: OrderedglipiZIDE 5 mg oral tablet, extended release 1 tablet = 5 mg, By Mouth, Daily, for 90 days, # 90 tablet, 6 Refills, Hard Stop 03/26/21 10:33:00 EDT, 07/05/19 10:33:00 EST, [facility]/pharmacy #[id number], 150, cm, 07/05/19 9:54:00 EST, Height, 60.9, kg, 08/14/18 15:46:00 EST, Dry Weight Start Date: 07/05/19 Stop Date: 03/26/21 Status: OrderedglipiZIDE 5 mg oral tablet, extended release 1 tablet = 5 mg, By Mouth, Daily, # 90 tablet, 6 Refills, Maintenance, 03/26/21 10:33:00 EDT, [facility]/pharmacy #[id number], 150, cm, 08/30/19 10:49:00 EST, Height, 60.9, kg, 08/14/18 15:46:00 EST, Dry Weight Start Date: 03/26/21 Stop Date: 12/16/22 Status: OrderedJanuvia 25 mg oral tablet See Instructions, [facility], # 30 tablet, 5 Refills, Soft Stop, 07/04/19 7:29:00 EST, [facility]/pharmacy #[id number], 150, cm, 05/14/19 14:08:00 EDT, Height, 60.9, kg, 08/14/18 15:46:00 EST, Dry Weight Start Date: 07/04/19 Status: Orderedlisinopril 40 mg oral tablet 1 tablet = 40 mg, By Mouth, Daily, for 90 days, # 90 tablet, 11 Refills, Hard Stop 04/30/24 0:00:00 EDT, 05/16/21 0:00:00 EDT, Tablet, [facility]/pharmacy #[id number] Start Date: 05/16/21 Stop Date: 04/30/24 Status: OrderedmetFORMIN 1000 mg oral tablet 1 tablet = 1,000 mg, By Mouth, 2 times a day, # 180 tablet, 5 Refills, Maintenance, 08/30/19 10:49:00 EST, Tablet, [facility]/pharmacy #[id number], 150, cm, 08/30/19 10:49:00 EST, [...] tablet, 11 Refills, Maintenance, 06/19/22 10:31:00 EST, [facility]/pharmacy #[id number], 150, cm, 08/30/19 10:49:00 EST, [...]
--- OUTSIDE RECORDS SUMMARY | 2022-04-17 18:17 | XMS_ITS | Continuity of Care Document ---
:1955 Author Organization [facility] Address [address] [place] [id number]- Care Team Providers Name Role Phone Ping Salazar DO Primary Care Physician Encounter [facility] [place] Date(s): 08/14/19 - 10/21/[address] [address]- [facility] Discharge Disposition: A-D/C Home Attending Physician: Not on Staff, Attending MD Admitting Physician: Ping Salazar DO Referring Physician: Ping Salazar DO Allergies, Adverse Reactions, Alerts Substance Reaction Severity [...] 650 mg, By Mouth, Once, lot # [id number] exp: 03/2020 mfg: [employer], 0 Refills, [...] chamber, # 25 Gm, Refills 11, Tot. [id number], Maintenance, 08/30/19 10:49:00 EST, Aerosol, Route to Pharmacy Electronically, [id number], [facility]/pharmacy #[id number], 150, cm,... Start Date: 08/30/19 Status: [...] 07/05/19 10:31:00 EST, Route to Pharmacy Electronically, [facility]/pharmacy #[id number], 150, cm, 07/05/19 9:54:00 EST, Height, [...] tablet, 11 Refills, Maintenance, 08/30/19 10:49:00 EST, [facility]/pharmacy #[id number], 150, cm, 08/30/19 10:49:00 EST, Height, 60.9, kg, 08/14/18 15:46:00 EST, Dry Weight Start Date: 08/30/19 Status: Orderedfamotidine 20 mg oral tablet 20 mg, By Mouth, Daily, # 60 each, Refills 1, Tot. Refills 1, Maintenance, 09/03/19 10:32:00 EST, Route to Pharmacy Electronically, [facility]/pharmacy #[id number], 150, cm, 07/26/19 14:53:00 EST, Height, 60.9, kg,08/14/18 15:46:00 EST, Dry Weight Start Date: 09/03/19 Stop Date: 11/02/19 Status: Orderedferrous sulfate 325 mg oral enteric coated tablet 325 mg, 1, tablet, By Mouth, Daily, # 90 tablet, Refills 2, Tot. Refills 2, Maintenance, 03/31/20 10:32:00 EDT, Route to Pharmacy Electronically, [facility]/pharmacy #[id number], 150, cm, 07/26/19 14:53:00 EST, Height, 60.9, kg, 08/14/18 15:46:00 EST, Dry Weight Start Date: 03/31/20 Stop Date: 12/26/20 Status: OrderedFioricet oral capsule 1 capsule, By Mouth, Every 4 hours, PRN as needed, do not not to exceed 6 capsules/day and do not take more than 2-3x/ week, # 30 capsule, 0 Refills, Maintenance, 10/10/19 8:24:00 EDT, Capsule, [facility]/pharmacy #207, 1 capsule By Mouth Every 4 hours,MO... Start Date: 10/10/19 Status: OrderedFlonase 50 mcg/inh nasal spray 1 sprays, Nares, Both, 2 times a day, # 16 Gm, 5 Refills, Maintenance, 07/05/19 10:32:00 EST, [place],[facility]/pharmacy #207, 1 sprays Nares, Both 2 times a day, 150, cm, 07/05/19 9:54:00 EST, Height, 60.9,kg, 08/14/18 15:46:00 EST, Dry Weight Start Date: 07/05/19 Status: Orderedfolic acid 1 mg oral tablet 1 mg, 1, tablet, By Mouth, Daily, # 90 tablet, Refills 11, Tot. Refills 11, Maintenance, 12/14/17 16:29:02 EDT, Route to Pharmacy Electronically, [id number], [facility]/pharmacy #[id number] Start Date: 12/14/17 Status: OrderedFreestyle Lite Lancets [...] 07/05/19 10:32:00 EST, [id number], cm, 07/05/19 9:54:00 EST, Height, 60.... Start Date: 07/05/19 Stop Date: 01/01/20 Status: Orderedgabapentin 300 mg oral capsule 300 mg, 1, capsule, By Mouth, 3 times a day, # 90 capsule, Refills 5, Tot. Refills 5, Maintenance, 01/01/20 10:32:00 EDT, [id number], cm, 07/26/19 14:53:00 EST, Height, 60.9, kg, 08/14/18 15:46:00 EST, DrGabriella Start Date: 01/01/20 Stop Date: 06/29/20 Status: OrderedglipiZIDE 5 mg oral tablet, extended release 1 tablet = 5 mg, By Mouth, Daily, for 90 days, # 90 tablet, 6 Refills, Hard Stop 03/26/21 10:33:00 EDT, 07/05/19 10:33:00 EST, [id number], cm, 07/05/19 9:54:00 EST, Height, 60.9, kg, 08/14/18 15:46:00 EST, Dry Weight Start Date: 07/05/19 Stop Date: 03/26/21 Status: OrderedglipiZIDE 5 mg oral tablet, extended release 1 tablet = 5 mg, By Mouth, Daily, # 90 tablet, 6 Refills, Maintenance, 03/26/21 10:33:00 EDT, [facility]/pharmacy #[id number], 150, cm, 08/30/19 10:49:00 EST, Height, 60.9, kg, 08/14/18 15:46:00 EST, Dry Weight Start Date: 03/26/21 Stop Date: 12/16/22 Status: OrderedJanuvia 25 mg oral tablet See Instructions, [facility], # 30 tablet, 5 Refills, Soft Stop, 07/04/19 7:29:00 EST, [facility]/pharmacy #[id number], 150, cm, 05/14/19 14:08:00 EDT, Height, 60.9, kg, 08/14/18 15:46:00 EST, Dry Weight Start Date: 07/04/19 Status: Orderedlisinopril 40 mg oral tablet 1 tablet = 40 mg, By Mouth, Daily, for 90 days, # 90 tablet, 11 Refills, Hard Stop 04/30/24 0:00:00 EDT, 05/16/21 0:00:00 EDT, Tablet, [facility]/pharmacy #207 Start Date: 05/16/21 Stop Date: 04/30/24 Status: OrderedmetFORMIN 1000 mg oral tablet 1 tablet = 1,000 mg, By Mouth, 2 times a day, # 180 tablet, 5 Refills, Maintenance, 08/30/19 10:49:00 EST, Tablet, [facility]/pharmacy #207, 150, cm, 08/30/19 10:49:00 EST, Height, [...] tablet, 11 Refills, Maintenance, 06/19/22 10:31:00 EST, [facility]/pharmacy #[id number], 150, cm, 08/30/19 10:49:00 EST, Height, [...]
--- OUTSIDE RECORDS SUMMARY | 2022-04-17 18:17 | XMS_ITS | Continuity of Care Document ---
:1955 Author Organization [facility] Address [address] [place] [id number]- Care Team Providers Name Role Phone Ping Salazar DO Primary Care Physician Encounter [facility] [place] Date(s): 07/03/19 - 10/31/[address] [address]- [facility] Attending Physician: Lindsey Coronel NP Admitting Physician: Lindsey Coronel NP Referring Physician: Lindsey Coronel NP Allergies, Adverse Reactions, Alerts Substance Reaction Severity [...] 650 mg, By Mouth, Once, lot # [id number] exp: 03/2020 mfg: [employer], 0 Refills, [...] chamber, # 25 Gm, Refills 11, Tot. [id number], Maintenance, 08/30/19 10:49:00 EST, Aerosol, Route to Pharmacy Electronically, [id number], [facility]/pharmacy #[id number], 150, cm,... Start Date: [...] 07/05/19 10:31:00 EST, Route to Pharmacy Electronically, [facility]/pharmacy #[id number], 150, cm, 07/05/19 9:54:00 [...] tablet, 11 Refills, Maintenance, 08/30/19 10:49:00 EST, [facility]/pharmacy #[id number], 150, cm, 08/30/19 10:49:00 EST, Height, 60.9, kg, 08/14/18 15:46:00 EST, Dry Weight Start Date: 08/30/19 Status: Orderedfamotidine 20 mg oral tablet 20 mg, By Mouth, Daily, # 60 each, Refills 1, Tot. Refills 1, Maintenance, 09/03/19 10:32:00 EST, Route to Pharmacy Electronically, [facility]/pharmacy #[id number], 150, cm, 07/26/19 14:53:00 EST, Height, 60.9, kg,08/14/18 15:46:00 EST, Dry Weight Start Date: 09/03/19 Stop Date: 11/02/19 Status: Orderedferrous sulfate 325 mg oral enteric coated tablet 325 mg, 1, tablet, By Mouth, Daily, # 90 tablet, Refills 2, Tot. Refills 2, Maintenance, 03/31/20 10:32:00 EDT, Route to Pharmacy Electronically, [facility]/pharmacy #[id number], 150, cm, 07/26/19 14:53:00 EST, Height, 60.9, kg, 08/14/18 15:46:00 EST, Dry Weight Start Date: 03/31/20 Stop Date: 12/26/20 Status: OrderedFioricet oral capsule 1 capsule, By Mouth, Every 4 hours, PRN as needed, do not not to exceed 6 capsules/day and do not take more than 2-3x/ week, # 30 capsule, 0 Refills, Maintenance, 10/10/19 8:24:00 EDT, Capsule, [facility]/pharmacy #207, 1 capsule By Mouth Every 4 hours,SD... Start Date: 10/10/19 Status: OrderedFlonase 50 mcg/inh nasal spray 1 sprays, Nares, Both, 2 times a day, # 16 Gm, 5 Refills, Maintenance, 07/05/19 10:32:00 EST, [place],[facility]/pharmacy #207, 1 sprays Nares, Both 2 times a day, 150, cm, 07/05/19 9:54:00 EST, Height, 60.9,kg, 08/14/18 15:46:00 EST, Dry Weight Start Date: 07/05/19 Status: Orderedfolic acid 1 mg oral tablet 1 mg, 1, tablet, By Mouth, Daily, # 90 tablet, Refills 11, Tot. Refills 11, Maintenance, 12/14/17 16:29:02 EDT, Route to Pharmacy Electronically, [id number], [facility]/pharmacy #[id number] Start Date: 12/14/17 Status: OrderedFreestyle Lite Lancets [...] 07/05/19 10:32:00 EST, [facility], cm, 07/05/19 9:54:00 EST, Height, 60.... Start Date: 07/05/19 Stop Date: 01/01/20 Status: Orderedgabapentin 300 mg oral capsule 300 mg, 1, capsule, By Mouth, 3 times a day, # 90 capsule, Refills 5, Tot. Refills 5, Maintenance, 01/01/20 10:32:00 EDT, [facility], [id number], cm, 07/26/19 14:53:00 EST, Height, 60.9, kg, 08/14/18 15:46:00 EST, DrGabriella Start Date: 01/01/20 Stop Date: 06/29/20 Status: OrderedglipiZIDE 5 mg oral tablet, extended release 1 tablet = 5 mg, By Mouth, Daily, for 90 days, # 90 tablet, 6 Refills, Hard Stop 03/26/21 10:33:00 EDT, 07/05/19 10:33:00 EST, [facility]/pharmacy #[id number], 150, cm, 07/05/19 9:54:00 EST, Height, 60.9, kg, 08/14/18 15:46:00 EST, Dry Weight Start Date: 07/05/19 Stop Date: 03/26/21 Status: OrderedglipiZIDE 5 mg oral tablet, extended release 1 tablet = 5 mg, By Mouth, Daily, # 90 tablet, 6 Refills, Maintenance, 03/26/21 10:33:00 EDT, [facility]/pharmacy #[id number], 150, cm, 08/30/19 10:49:00 EST, Height, 60.9, kg, 08/14/18 15:46:00 EST, Dry Weight Start Date: 03/26/21 Stop Date: 12/16/22 Status: OrderedJanuvia 25 mg oral tablet See Instructions, [facility], # 30 tablet, 5 Refills, Soft Stop, 07/04/19 7:29:00 EST, [facility]/pharmacy #[id number], 150, cm, 05/14/19 14:08:00 EDT, Height, 60.9, kg, 08/14/18 15:46:00 EST, Dry Weight Start Date: 07/04/19 Status: Orderedlisinopril 40 mg oral tablet 1 tablet = 40 mg, By Mouth, Daily, for 90 days, # 90 tablet, 11 Refills, Hard Stop 04/30/24 0:00:00 EDT, 05/16/21 0:00:00 EDT, Tablet, [facility]/pharmacy #207 Start Date: 05/16/21 Stop Date: 04/30/24 Status: OrderedmetFORMIN 1000 mg oral tablet 1 tablet = 1,000 mg, By Mouth, 2 times a day, # 180 tablet, 5 Refills, Maintenance, 08/30/19 10:49:00 EST, Tablet, [facility]/pharmacy #[id number], 150, cm, 08/30/19 10:49:00 [...] tablet, 11 Refills, Maintenance, 06/19/22 10:31:00 EST, [facility]/pharmacy #[id number], 150, cm, 08/30/19 10:49:00 [...]
--- OUTSIDE RECORDS SUMMARY | 2022-04-17 18:17 | XMS_ITS | Continuity of Care Document ---
:1955 Author Organization [facility] Address [address] [place] [address]- Care Team Providers Name Role Phone BrackenPnig Solorzano DO Primary Care Physician En[place] [facility] [place] Date(s): 08/30/19 - 10/06/[address] [address]- [facility] Attending Physician: Not on Staff, Attending MD Referring Physician: Sachin Castellano NP Allergies, Adverse Reactions, Alerts Substance Reaction [...] 650 mg, By Mouth, Once, lot # [id number] exp: 03/2020 mfg: [employer], 0 Refills, [...] chamber, # 25 Gm, Refills 11, Tot. [id number], Maintenance, 08/30/19 10:49:00 EST, Aerosol, Route to Pharmacy Electronically, [id number], [facility]/pharmacy #[id number], 150, cm,... Start Date: 08/30/19 Status: [...] 07/05/19 10:31:00 EST, Route to Pharmacy Electronically, [facility]/pharmacy #[id number], 150, cm, 07/05/19 9:54:00 EST, Height, [...] tablet, 11 Refills, Maintenance, 08/30/19 10:49:00 EST, [facility]/pharmacy #[id number], 150, cm, 08/30/19 10:49:00 EST, Height, 60.9, kg, 08/14/18 15:46:00 EST, Dry Weight Start Date: 08/30/19 Status: Orderedfamotidine 20 mg oral tablet 20 mg, By Mouth, Daily, # 60 each, Refills 1, Tot. Refills 1, Maintenance, 09/03/19 10:32:00 EST, Route to Pharmacy Electronically, [facility]/pharmacy #[id number], 150, cm, 07/26/19 14:53:00 EST, Height, 60.9, kg,08/14/18 15:46:00 EST, Dry Weight Start Date: 09/03/19 Stop Date: 11/02/19 Status: Orderedferrous sulfate 325 mg oral enteric coated tablet 325 mg, 1, tablet, By Mouth, Daily, # 90 tablet, Refills 2, Tot. Refills 2, Maintenance, 03/31/20 10:32:00 EDT, Route to Pharmacy Electronically, [facility]/pharmacy #[id number], 150, cm, 07/26/19 14:53:00 EST, Height, [...] Gm, 5 Refills, Maintenance, 07/05/19 10:32:00 EST, [place],[facility]/pharmacy #[id number], 1 sprays Nares, Both 2 times a day, 150, cm, 07/05/19 9:54:00 EST, Height, 60.9,kg, 08/14/18 15:46:00 EST, Dry Weight Start Date: 07/05/19 Status: Orderedfolic acid 1 mg oral tablet 1 mg, 1, tablet, By Mouth, Daily, # 90 tablet, Refills 11, Tot. Refills 11, Maintenance, 12/14/17 16:29:02 EDT, Route to Pharmacy Electronically, [id number], [facility]/pharmacy #2078 Start Date: 12/14/17 Status: OrderedFreestyle Lite Lancets [...] 07/05/19 10:32:00 EST, Route to Pharmacy Electronically, [facility]/pharmacy#207, 150, cm, 07/05/19 9:54:00 EST, Height, 60.... Start Date: 07/05/19 Stop Date: 01/01/20 Status: Orderedgabapentin 300 mg oral capsule 300 mg, 1, capsule, By Mouth, 3 times a day, # 90 capsule, Refills 5, Tot. Refills 5, Maintenance, 01/01/20 10:32:00 EDT, [id number], cm, 07/26/19 14:53:00 EST, Height, 60.9, kg, 08/14/18 15:46:00 EST, Start Date: 01/01/20 Stop Date: 06/29/20 Status: OrderedglipiZIDE 5 mg oral tablet, extended release 1 tablet = 5 mg, By Mouth, Daily, for 90 days, # 90 tablet, 6 Refills, Hard Stop 03/26/21 10:33:00 EDT, 07/05/19 10:33:00 EST, [id number], cm, 07/05/19 9:54:00 EST, Height, 60.9, kg, 08/14/18 15:46:00 EST, Dry Weight Start Date: 07/05/19 Stop Date: 03/26/21 Status: OrderedglipiZIDE 5 mg oral tablet, extended release 1 tablet = 5 mg, By Mouth, Daily, # 90 tablet, 6 Refills, Maintenance, 03/26/21 10:33:00 EDT, [facility]/pharmacy #[id number], 150, cm, 08/30/19 10:49:00 EST, Height, 60.9, kg, 08/14/18 15:46:00 EST, Dry Weight Start Date: 03/26/21 Stop Date: 12/16/22 Status: OrderedJanuvia 25 mg oral tablet See Instructions, [facility], # 30 tablet, 5 Refills, Soft Stop, 07/04/19 7:29:00 EST, [facility]/pharmacy #[id number], 150, cm, 05/14/19 14:08:00 EDT, Height, 60.9, kg, 08/14/18 15:46:00 EST, Dry Weight Start Date: 07/04/19 Status: Orderedlisinopril 40 mg oral tablet 1 tablet = 40 mg, By Mouth, Daily, for 90 days, # 90 tablet, 11 Refills, Hard Stop 04/30/24 0:00:00 EDT, 05/16/21 0:00:00 EDT, Tablet, [facility]/pharmacy #207 Start Date: 05/16/21 Stop Date: 04/30/24 Status: OrderedmetFORMIN 1000 mg oral tablet 1 tablet = 1,000 mg, By Mouth, 2 times a day, # 180 tablet, 5 Refills, Maintenance, 08/30/19 10:49:00 EST, Tablet, [facility]/pharmacy #2070, 150, cm, 08/30/19 10:49:00 EST, Height, [...] tablet, 11 Refills, Maintenance, 06/19/22 10:31:00 EST, [facility]/pharmacy #2070, 150, cm, 08/30/19 10:49:00 EST, Height, 60.9, kg, 08/14/18 15:46:00 EST, Dry Weight Start Date: 06/19/22 Stop Date: 06/03/25 Status: OrderedZithromax 250 mg oral tablet 1 pack/packet, By Mouth, Once, # 6 tablet, 0 Refills, Soft Stop, 08/30/19 10:53:00 EST, Tablet, [facility]/pharmacy #2071, 150, cm, 08/30/19 10:49:00 EST, Height, 60.9, kg, 08/14/18 15:46:00 EST, Dry Weight Start Date: 08/30/19 Status: Ordered Problem List Condition Effective Dates Status Health Status Informant Asthma(Confirmed) Active Diabetes Mellitus(Confirmed) Active Hypertension(Confirmed) Active Social History Social History Type Response Smoking Status Never smoker; Tobacco user i n household: No entered on: 06/06/17 Sex
--- OUTSIDE RECORDS SUMMARY | 2022-04-17 18:17 | XMS_ITS | Continuity of Care Document ---
:1955 Author Organization [facility] Address [address] [place] [id number]- Care Team Providers Name Role Phone Ping Salazar DO Primary Care Physician Encounter [facility] Date(s): 09/25/19 - 01/24/[address] [address]- [facility] Attending Physician: Christine Schroeder MD [...] 650 mg, By Mouth, Once, lot # [id number] exp: 03/2020 mfg: [employer] Pharm, 0 Refills, [...] chamber, # 25 Gm, Refills 11, Tot. [id number], Maintenance, 08/30/19 10:49:00 EST, Aerosol, Route to Pharmacy Electronically, [id number], [facility]/pharmacy #[id number], 150, cm,... Start Date: 08/30/19 [...] 11/06/19 16:00:00 EDT, Route to Pharmacy Electronically, [facility]/pharmacy #[id number], 150, cm, 08/30/... Start Date: 11/06/19 Stop Date: 02/04/20 Status: OrderedcloNIDine 0.1 mg oral tablet 0.1 mg, 1, tablet, By Mouth, 2 times a day, # 180 tablet, Refills 3, Tot. Refills 3, Maintenance, 11/02/19 16:30:00 EDT, Route to Pharmacy Electronically, [facility]/pharmacy #[id number], 150, cm, 08/30/19 10:49:00EST, Height, [...] tablet, 11 Refills, Maintenance, 11/02/19 16:31:00 EDT[id number], cm, 08/30/19 10:49:00 EST, Height, 60.9, kg, 08/14/18 15:46:00 EST, Dry Weight Start Date: 11/02/19 Status: Orderedfamotidine 20 mg oral tablet 20 mg, By Mouth, Daily, # 60 each, Refills 1, Tot. Refills 1, Maintenance, 09/03/19 10:32:00 EST, [id number], cm, 07/26/19 14:53:00 EST, Height, 60.9, kg,08/14/18 15:46:00 EST, Dry Weight Start Date: 09/03/19 Stop Date: 11/02/19 Status: Orderedferrous sulfate 325 mg oral enteric coated tablet 325 mg, 1, tablet, By Mouth, Daily, # 90 tablet, Refills 2, Tot. Refills 2, Maintenance, 03/31/20 10:32:00 EDT, [id number], cm, 07/26/19 14:53:00 EST, Height, 60.9, kg, 08/14/18 15:46:00 EST, Dry Weight Start Date: 03/31/20 Stop Date: 12/26/20 Status: OrderedFioricet oral capsule 1 capsule, By Mouth, Every 4 hours, PRN as needed, do not not to exceed 6 capsules/day and do not take more than 2-3x/ week, # 30 capsule, 0 Refills, Maintenance, 10/10/19 8:24:00 EDT, Capsule, [facility]/pharmacy #207, 1 capsule By Mouth Every 4 hours,OR... Start Date: 10/10/19 Status: OrderedFlonase 50 mcg/inh nasal spray 1 sprays, Nares, Both, 2 times a day, # 16 Gm, 5 Refills, Maintenance, 07/05/19 10:32:00 EST, [place],[facility]/pharmacy #[id number], 1 sprays Nares, Both 2 times a day, 150, cm, 07/05/19 9:54:00 EST, Height, 60.9,kg, 08/14/18 15:46:00 EST, Dry Weight Start Date: 07/05/19 Status: Orderedfolic acid 1 mg oral tablet 1 mg, 1, tablet, By Mouth, Daily, # 90 tablet, Refills 11, Tot. Refills 11, Maintenance, 12/14/17 16:29:02 EDT, Route to Pharmacy Electronically, [id number], [facility]/pharmacy #[id number] Start Date: 12/14/17 Status: OrderedFreestyle [...] 01/01/20 10:32:00 EDT, Route to Pharmacy Electronically, [facility]/pharmacy #[id number], 150, cm, 07/26/19 14:53:00 EST, Height, 60.9, kg, 08/14/18 15:46:00 EST, . Start Date: 01/01/20 Stop Date: 06/29/20 Status: OrderedglipiZIDE 5 mg oral tablet, extended release 1 tablet = 5 mg, By Mouth, Daily, for 90 days, # 90 tablet, 6 Refills, Hard Stop 03/26/21 10:33:00 EDT, 07/05/19 10:33:00 EST, [facility]/pharmacy #[id number], 150, cm, 07/05/19 9:54:00 EST, Height, 60.9, kg, 08/14/18 15:46:00 EST, Dry Weight Start Date: 07/05/19 Stop Date: 03/26/21 Status: OrderedglipiZIDE 5 mg oral tablet, extended release 1 tablet = 5 mg, By Mouth, Daily, # 90 tablet, 6 Refills, Maintenance, 03/26/21 10:33:00 EDT, [facility]/pharmacy #[id number], 150, cm, 08/30/19 10:49:00 EST, Height, 60.9, kg, 08/14/18 15:46:00 EST, Dry Weight Start Date: 03/26/21 Stop Date: 12/16/22 Status: OrderedJanuvia 25 mg oral tablet See Instructions, SHANE CUELLARZak LIVES HERNANDEZ BIRD, # 30 tablet, 5 Refills, Soft Stop, 07/04/19 7:29:00 EST, [facility]/pharmacy #[id number], 150, cm, 05/14/19 14:08:00 EDT, Height, 60.9, kg, 08/14/18 15:46:00 EST, Dry Weight Start Date: 07/04/19 Status: Orderedlisinopril 40 mg oral tablet 1 tablet = 40 mg, By Mouth, Daily, for 90 days, # 90 tablet, 11 Refills, Hard Stop 04/30/24 0:00:00 EDT, 05/16/21 0:00:00 EDT, Tablet, [facility]/pharmacy #207 Start Date: 05/16/21 Stop Date: 04/30/24 Status: Orderedlisinopril 40 mg oral tablet 1 tablet = 40 mg, By Mouth, Daily, for 90 days, # 90 tablet, 11 Refills, Hard Stop 04/15/27 0:00:00 EDT, 04/30/24 0:00:00 EDT, Tablet, [facility]/pharmacy #1, 150, cm, 08/30/19 10:49:00 EST, Height, 60.9, kg, 08/14/18 15:46:00 EST, Dry Weight Start Date: 04/30/24 Stop Date: 04/15/27 Status: OrderedmetFORMIN 1000 mg oral tablet 1 tablet = 1,000 mg, By Mouth, 2 times a day, # 180 tablet, 5 Refills, Maintenance, 08/30/19 10:49:00 EST, Tablet, [facility]/pharmacy #[id number], 150, cm, 08/30/19 10:49:00 EST, [...]
--- OUTSIDE RECORDS SUMMARY | 2022-04-17 18:17 | XMS_ITS | Continuity of Care Document ---
:1955 Author Organization [facility] Address [address], [address], [address] [place] [id number]- Care Team Providers Name Role Phone Ping Salazar DO Primary Care Physician Encounter [facility] Date(s): 01/16/20 - 03/16/20 [facility] [address], [address], [address] [place] [id number]- [facility] Attending Physician: Pina Geuvara Admitting Physician: Pina Guevara Referring Physician: Michael Jessica Allergies, Adverse Reactions, [...] 650 mg, By Mouth, Once, lot # [id number] exp: 03/2020 mfg: [employer], 0 Refills, [...] chamber, # 25 Gm, Refills 11, Tot. [id number], Maintenance, 08/30/19 10:49:00 EST, Aerosol, Route to Pharmacy Electronically, [id number], [facility]/pharmacy #[id number], 150, cm,... Start Date: [...] 11/02/19 16:30:00 EDT, Route to Pharmacy Electronically, [facility]/pharmacy #[id number], 150, cm, 08/30/19 10:49:00EST, [...] tablet, 11 Refills, Maintenance, 11/02/19 16:31:00 EDT, [facility]/pharmacy #[id number], 150, cm, 08/30/19 10:49:00 EST, Height, 60.9, kg, 08/14/18 15:46:00 EST, Dry Weight Start Date: 11/02/19 Status: Orderedfamotidine 20 mg oral tablet 20 mg, By Mouth, Daily, # 60 each, Refills 1, Tot. Refills 1, Maintenance, 09/03/19 10:32:00 EST, Route to Pharmacy Electronically, [facility]/pharmacy #[id number], 150, cm, 07/26/19 14:53:00 EST, Height, 60.9, kg,08/14/18 15:46:00 EST, Dry Weight Start Date: 09/03/19 Stop Date: 11/02/19 Status: Orderedferrous sulfate 325 mg oral enteric coated tablet 325 mg, 1, tablet, By Mouth, Daily, # 90 tablet, Refills 2, Tot. Refills 2, Maintenance, 03/31/20 10:32:00 EDT, Route to Pharmacy Electronically, [facility]/pharmacy #1, 150, cm, 07/26/19 14:53:00 EST, Height, 60.9, kg, 08/14/18 15:46:00 EST, Dry Weight Start Date: 03/31/20 Stop Date: 12/26/20 Status: OrderedFioricet oral capsule 1 capsule, By Mouth, Every 4 hours, PRN as needed, do not not to exceed 6 capsules/day and do not take more than 2-3x/ week, # 30 capsule, 0 Refills, Maintenance, 10/10/19 8:24:00 EDT, Capsule, [facility]/pharmacy #[id number], 1 capsule By Mouth Every 4 hours,[place]... Start Date: 10/10/19 Status: OrderedFlonase 50 mcg/inh nasal spray 1 sprays, Nares, Both, 2 times a day, # 16 Gm, 5 Refills, Maintenance, 07/05/19 10:32:00 EST, [place],[facility]/pharmacy #[id number], 1 sprays Nares, Both 2 times a day, 150, cm, 07/05/19 9:54:00 EST, Height, 60.9,kg, 08/14/18 15:46:00 EST, Dry Weight Start Date: 07/05/19 Status: Orderedfolic acid 1 mg oral tablet 1 mg, 1, tablet, By Mouth, Daily, # 90 tablet, Refills 11, Tot. Refills 11, Maintenance, 12/14/17 16:29:02 EDT, Route to Pharmacy Electronically, [id number], [facility]/pharmacy #[id number] Start Date: 12/14/17 Status: OrderedFreestyle Lite Lancets [...] 01/01/20 10:32:00 EDT, Route to Pharmacy Electronically, [facility]/pharmacy #[id number], 150, cm, 07/26/19 14:53:00 EST, Height, 60.9, kg, 08/14/18 15:46:00 EST, . Start Date: 01/01/20 Stop Date: 06/29/20 Status: OrderedglipiZIDE 5 mg oral tablet, extended release 1 tablet = 5 mg, By Mouth, Daily, for 90 days, # 90 tablet, 6 Refills, Hard Stop 03/26/21 10:33:00 EDT, 07/05/19 10:33:00 EST, [facility]/pharmacy #[id number], 150, cm, 07/05/19 9:54:00 EST, Height, 60.9, kg, 08/14/18 15:46:00 EST, Dry Weight Start Date: 07/05/19 Stop Date: 03/26/21 Status: OrderedglipiZIDE 5 mg oral tablet, extended release 1 tablet = 5 mg, By Mouth, Daily, # 90 tablet, 6 Refills, Maintenance, 03/26/21 10:33:00 EDT, [facility]/pharmacy #[id number], 150, cm, 08/30/19 10:49:00 EST, Height, 60.9, kg, 08/14/18 15:46:00 EST, Dry Weight Start Date: 03/26/21 Stop Date: 12/16/22 Status: OrderedJanuvia 25 mg oral tablet See Instructions, SHANE BUSTOS TODOS LOS BIRD, # 30 tablet, 5 Refills, Soft Stop, 02/19/20 13:09:00 EDT, [facility]/pharmacy #[id number], 150, cm, 08/30/19 10:49:00 EST, Height, 60.9, kg, 08/14/18 15:46:00 EST,Dry Weight Start Date: 02/19/20 Status: Orderedlisinopril 40 mg oral tablet 1 tablet = 40 mg, By Mouth, Daily, for 90 days, # 90 tablet, 11 Refills, Hard Stop 04/30/24 0:00:00 EDT, 05/16/21 0:00:00 EDT, Tablet, [facility]/pharmacy #2071 Start Date: 05/16/21 Stop Date: 04/30/24 Status: Orderedlisinopril 40 mg oral tablet 1 tablet = 40 mg, By Mouth, Daily, for 90 days, # 90 tablet, 11 Refills, Hard Stop 04/15/27 0:00:00 EDT, 04/30/24 0:00:00 EDT, Tablet, [facility]/pharmacy #[id number], 150, cm, 08/30/19 10:49:00 EST, Height, 60.9, kg, 08/14/18 15:46:00 EST, Dry Weight Start Date: 04/30/24 Stop Date: 04/15/27 Status: OrderedmetFORMIN 1000 mg oral tablet 1 tablet = 1,000 mg, By Mouth, 2 times a day, # 180 tablet, 5 Refills, Maintenance, 08/30/19 10:49:00 EST, Tablet, [facility]/pharmacy #[id number], 150, cm, 08/30/19 10:49:00 [...] tablet, 11 Refills, Maintenance, 06/19/22 10:31:00 EST, [facility]/pharmacy #[id number], 150, cm, 08/30/19 10:49:00 [...]
--- OUTSIDE RECORDS SUMMARY | 2022-04-17 18:17 | XMS_ITS | Continuity of Care Document ---
:1955 Author Organization [facility] Address [address] [place] [id number]- Care Team Providers Name Role Phone Ping Salazar DO Primary Care Physician Encounter [facility] Date(s): 07/24/19 - 08/29/[address] [address]- [facility] Attending Physician: Christine Schroeder MD Admitting Physician: Christine Schroeder MD Referring Physician: Ping Salazar DO Allergies, Adverse [...] 650 mg, By Mouth, Once, lot # [id number] exp: 03/2020 mfg: [employer], 0 Refills, [...] chamber, # 25 Gm, Refills 11, Tot. [id number], Maintenance, 07/05/19 10:30:00 EST, Aerosol, Route to Pharmacy Electronically, [id number], [facility]/pharmacy #[id number], 150, cm,... Start Date: 07/05/19 Status: [...] 07/05/19 10:31:00 EST, Route to Pharmacy Electronically, [facility]/pharmacy #[id number], 150, cm, 07/05/19 9:54:00 [...] tablet, 11 Refills, Maintenance, 07/05/19 10:31:00 EST, [facility]/pharmacy #[id number], 150, cm, 07/05/19 9:54:00 EST, Height, 60.9, kg, 08/14/18 15:46:00 EST, Dry Weight Start Date: 07/05/19 Status: Orderedfamotidine 20 mg oral tablet 20 mg, By Mouth, Daily, # 60 each, Refills 1, Tot. Refills 1, Maintenance, 07/05/19 10:32:00 EST, Route to Pharmacy Electronically, [facility]/pharmacy #2070, 150, cm, 07/05/19 9:54:00 EST, Height, 60.9, kg, 08/14/18 15:46:00 EST, Dry Weight Start Date: 07/05/19 Stop Date: 09/03/19 Status: Orderedferrous sulfate 325 mg oral enteric coated tablet 325 mg, 1, tablet, By Mouth, Daily, # 90 tablet, Refills 2, Tot. Refills 2, Maintenance, 07/05/19 10:32:00 EST, Route to Pharmacy Electronically, [facility]/pharmacy #[id number], 150, cm, 07/05/19 9:54:00 EST, Height, [...] Gm, 5 Refills, Maintenance, 07/05/19 10:32:00 EST, [place],[facility]/pharmacy #207, 1 sprays Nares, Both 2 times a day, 150, cm, 07/05/19 9:54:00 EST, Height, 60.9,kg, 08/14/18 15:46:00 EST, Dry Weight Start Date: 07/05/19 Status: Orderedfolic acid 1 mg oral tablet 1 mg, 1, tablet, By Mouth, Daily, # 90 tablet, Refills 11, Tot. Refills 11, Maintenance, 12/14/17 16:29:02 EDT, Route to Pharmacy Electronically, [id number], [facility]/pharmacy #207 Start Date: 12/14/17 Status: OrderedFreestyle Lite [...] 07/05/19 10:32:00 EST, Route to Pharmacy Electronically, [facility]/pharmacy #207, 150, cm, 07/05/19 9:54:00EST, Height, 60.9, [...] 5 Refills, Maintenance, 07/05/19 10:33:00 EST, Tablet, [facility]/pharmacy #[id number], 150, cm, 07/05/19 9:54:00 [...]
--- OUTSIDE RECORDS SUMMARY | 2022-04-17 18:18 | XMS_ITS | Continuity of Care Document ---
:1955 Author Organization [facility] Address [address] [place] [address]- Care Team Providers Name Role Phone Ping Salazra DO Primary Care Physician Encounter [facility] Date(s): 08/12/20 - 09/11/[address] [address]- Allergies, Adverse Reactions, Alerts Substance Reaction Severity [...] 650 mg, By Mouth, Once, lot # [id number] exp: 03/2020 mfg: [employer], 0 Refills, [...] chamber, # 25 Gm, Refills 11, Tot. [id number], Maintenance, 08/30/19 10:49:00 EST, Aerosol, Route to Pharmacy Electronically, [id number], [facility]/pharmacy #[id number], 150, cm,... Start Date: 08/30/19 Status: [...] 11/02/19 16:30:00 EDT, Route to Pharmacy Electronically, [facility]/pharmacy #[id number], 150, cm, 08/30/19 10:49:00EST, Height, 60.9, [...] 11 Refills, Maintenance, 11/02/19 16:31:00 EDT, [facility]/pharmacy #[id number], 150, cm, 08/30/19 10:49:00 EST, Height, 60.9, kg, 08/14/18 15:46:00 EST, Dry Weight Start Date: 11/02/19 Status: Orderedfamotidine 20 mg oral tablet 20 mg, By Mouth, Daily, # 90 each, Refills 0, Tot. Refills 0, Maintenance, 04/18/20 9:47:00 EDT, Route to Pharmacy Electronically, [facility]/pharmacy #2070, 150, cm, 08/30/19 10:49:00 EST, Height, 60.9, kg, 08/14/18 15:46:00 EST, Dry Weight Start Date: 04/18/20 Status: Orderedferrous sulfate 325 mg oral enteric coated tablet 325 mg, 1, tablet, By Mouth, Daily, # 90 tablet, Refills 2, Tot. Refills 2, Maintenance, 03/31/20 10:32:00 EDT, Route to Pharmacy Electronically, [facility]/pharmacy #2070, 150, cm, 07/26/19 14:53:00 EST, Height, 60.9, kg, 08/14/18 15:46:00 EST, Dry Weight Start Date: 03/31/20 Stop Date: 12/26/20 Status: OrderedFioricet oral capsule 1 capsule, By Mouth, Every 4 hours, PRN as needed, do not not to exceed 6 capsules/day and do not take more than 2-3x/ week, # 30 capsule, 0 Refills, Maintenance, 10/10/19 8:24:00 EDT, Capsule, [facility]/pharmacy #2070, 1 capsule By Mouth Every 4 hours,[place]... Start Date: 10/10/19 Status: OrderedFlonase 50 mcg/inh nasal spray 1 sprays, Nares, Both, 2 times a day, # 16 Gm, 5 Refills, Maintenance, 07/05/19 10:32:00 EST, [place],[facility]/pharmacy #2070, 1 sprays Nares, Both 2 times a day, 150, cm, 07/05/19 9:54:00 EST, Height, 60.9,kg, 08/14/18 15:46:00 EST, Dry Weight Start Date: 07/05/19 Status: Orderedfolic acid 1 mg oral tablet 1 mg, 1, tablet, By Mouth, Daily, # 90 tablet, Refills 11, Tot. Refills 11, Maintenance, 12/14/17 16:29:02 EDT, Route to Pharmacy Electronically, [id number], [facility]/pharmacy #[id number] Start Date: 12/14/17 Status: OrderedFreestyle Lite Lancets [...] 10/08/19 Status: Orderedgabapentin 300 mg oral capsule See Instructions, TOME BEAR DIXON AL JORGE, # 90 capsule, Refills 2, Maintenance, Instructions Replace Required Details, Route to Pharmacy Electronically, [facility]ORE 9[facility], 150, cm, 08/30/19 10:49:00 EST, Height, 60.9, kg, 08/14/18 15:46:00 E... Start Date: 08/12/20 Status: OrderedglipiZIDE 5 mg oral tablet, extended release 1 tablet = 5 mg, By Mouth, Daily, for 90 days, # 90 tablet, 6 Refills, Hard Stop 03/26/21 10:33:00 EDT, 07/05/19 10:33:00 EST, [facility]/pharmacy #[id number], 150, cm, 07/05/19 9:54:00 EST, Height, 60.9, kg, 08/14/18 15:46:00 EST, Dry Weight Start Date: 07/05/19 Stop Date: 03/26/21 Status: OrderedglipiZIDE 5 mg oral tablet, extended release 1 tablet = 5 mg, By Mouth, Daily, # 90 tablet, 6 Refills, Maintenance, 03/26/21 10:33:00 EDT, [facility]/pharmacy #2070, 150, cm, 08/30/19 10:49:00 EST, Height, 60.9, kg, 08/14/18 15:46:00 EST, Dry Weight Start Date: 03/26/21 Stop Date: 12/16/22 Status: OrderedJanuvia 25 mg oral tablet See Instructions, SHANE CUELLARA TODOS [place] BIRD, # 30 tablet, 5 Refills, Soft Stop, 02/19/20 13:09:00 EDT, [facility]/pharmacy #207, 150, cm, 08/30/19 10:49:00 EST, Height, 60.9, kg, 08/14/18 15:46:00 EST,Dry Weight Start Date: 02/19/20 Status: Orderedlisinopril 40 mg oral tablet 1 tablet = 40 mg, By Mouth, Daily, for 90 days, # 90 tablet, 11 Refills, Hard Stop 04/30/24 0:00:00 EDT, 05/16/21 0:00:00 EDT, Tablet, [facility]/pharmacy #[id number] Start Date: 05/16/21 Stop Date: 04/30/24 Status: Orderedlisinopril 40 mg oral tablet 1 tablet = 40 mg, By Mouth, Daily, for 90 days, # 90 tablet, 11 Refills, Hard Stop 04/15/27 0:00:00 EDT, 04/30/24 0:00:00 EDT, Tablet, [facility]/pharmacy #[id number], 150, cm, 08/30/19 10:49:00 EST, Height, 60.9, kg, 08/14/18 15:46:00 EST, Dry Weight Start Date: 04/30/24 Stop Date: 04/15/27 Status: OrderedmetFORMIN 1000 mg oral tablet 1 tablet = 1,000 mg, By Mouth, 2 times a day, # 180 tablet, 5 Refills, Maintenance, 08/30/19 10:49:00 EST, Tablet, [facility]/pharmacy #[id number], 150, cm, 08/30/19 10:49:00 EST, Height, [...] tablet, 11 Refills, Maintenance, 06/19/22 10:31:00 EST, [facility]/pharmacy #[id number], 150, cm, 08/30/19 10:49:00 EST, Height, [...]
--- OUTSIDE RECORDS SUMMARY | 2022-04-17 18:18 | XMS_ITS | Continuity of Care Document ---
:1955 Author Organization [facility] Address [address] [facility], [address]rd Floor, [address] [place] [id number]- Care Team Providers Name Role Phone Ping Salazar DO Primary Care Physician Encounter [facility] Date(s): 01/25/20 - 02/24/20 [facility] [address], [address], [address] [place] [id number]- [facility] Allergies, Adverse Reactions, Alerts Substance [...] 650 mg, By Mouth, Once, lot # [id number] exp: 03/2020 mfg: [employer], 0 Refills, [...] chamber, # 25 Gm, Refills 11, Tot. [id number], Maintenance, 08/30/19 10:49:00 EST, Aerosol, Route to Pharmacy Electronically, [id number], [facility]/pharmacy #[id number], 150, cm,... [...] 11/02/19 16:30:00 EDT, [facility]ically[id number], cm, 08/30/19 10:49:00EST, Height, 60.9, [...] tablet, 11 Refills, Maintenance, 11/02/19 16:31:00 EDT, [facility]/pharmacy #2070, 150, cm, [...] #2070, 1 capsule By Mouth Every 4 hours,[place]... Start Date: 10/10/19 Status: OrderedFlonase 50 mcg/inh nasal spray 1 sprays, Nares, Both, 2 times a day, # 16 Gm, 5 Refills, Maintenance, 07/05/19 10:32:00 EST, [place],[facility]/pharmacy #[id number], 1 sprays Nares, Both 2 times a day, 150, cm, 07/05/19 9:54:00 EST, Height, 60.9,kg, 08/14/18 15:46:00 EST, Dry Weight Start Date: 07/05/19 Status: Orderedfolic acid 1 mg oral tablet 1 mg, 1, tablet, By Mouth, Daily, # 90 tablet, Refills 11, Tot. Refills 11, Maintenance, 12/14/17 16:29:02 EDT, Route to Pharmacy Electronically, [id number], [facility]/pharmacy #[id number] Start Date: 12/14/17 Status: OrderedFreestyle Lite Lancets [...] 03/26/21 10:33:00 EDT, [facility]/pharmacy #[id number], 150, cm, 08/30/19 10:49:00 EST, Height, 60.9, kg, 08/14/18 15:46:00 EST, Dry Weight Start Date: 03/26/21 Stop Date: 12/16/22 Status: OrderedJanuvia 25 mg oral tablet See Instructions, SHANE BUSTOS TODOS [place] BIRD, # 30 tablet, 5 Refills, Soft Stop, 02/19/20 13:09:00 EDT, [facility]/pharmacy #[id number], 150, cm, 08/30/19 10:49:00 EST, Height, 60.9, kg, 08/14/18 15:46:00 EST,Dry Weight Start Date: 02/19/20 Status: Orderedlisinopril 40 mg oral tablet 1 tablet = 40 mg, By Mouth, Daily, for 90 days, # 90 tablet, 11 Refills, Hard Stop 04/30/24 0:00:00 EDT, 05/16/21 0:00:00 EDT, Tablet, [facility]/pharmacy #207 Start Date: 05/16/21 Stop Date: 04/30/24 Status: Orderedlisinopril 40 mg oral tablet 1 tablet = 40 mg, By Mouth, Daily, for 90 days, # 90 tablet, 11 Refills, Hard Stop 04/15/27 0:00:00 EDT, 04/30/24 0:00:00 EDT, Tablet, [facility]/pharmacy #1, 150, cm, 08/30/19 10:49:00 EST, Height, [...] 11 Refills, Maintenance, 06/19/22 10:31:00 EST, [facility]/pharmacy #[id number], 150, cm, 08/30/19 10:49:00 EST, [...]
--- OUTSIDE RECORDS SUMMARY | 2022-04-17 18:18 | XMS_ITS | Continuity of Care Document ---
:1955 Author Organization [facility] Address [address] [place] [address]- Care Team Providers Name Role Phone Ping Salazar DO Primary Care Physician [place] [facility] [place] 03/05/[address] [address]- [facility] Attending Physician: Christine Schroeder MD Admitting Physician: [...] 650 mg, By Mouth, Once, lot # [id number] exp: 03/2020 mfg: [employer], 0 Refills, [...] chamber, # 25 Gm, Refills 11, Tot. [id number], Maintenance, 08/30/19 10:49:00 EST, Aerosol, Route to Pharmacy Electronically, [id number], [facility]/pharmacy #[id number], 150, cm,... Start Date: [...] 11/02/19 16:30:00 EDT, Route to Pharmacy Electronically, [facility]/pharmacy #[id number], 150, cm, 08/30/19 10:49:00EST, [...] tablet, 11 Refills, Maintenance, 11/02/19 16:31:00 EDT, [facility]/pharmacy #1, 150, cm, 08/30/19 10:49:00 EST, Height, 60.9, kg, 08/14/18 15:46:00 EST, Dry Weight Start Date: 11/02/19 Status: Orderedfamotidine 20 mg oral tablet 20 mg, By Mouth, Daily, # 60 each, Refills 1, Tot. Refills 1, Maintenance, 09/03/19 10:32:00 EST, Route to Pharmacy Electronically, [facility]/pharmacy #[id number], 150, cm, 07/26/19 14:53:00 EST, Height, 60.9, kg,08/14/18 15:46:00 EST, Dry Weight Start Date: 09/03/19 Stop Date: 11/02/19 Status: Orderedferrous sulfate 325 mg oral enteric coated tablet 325 mg, 1, tablet, By Mouth, Daily, # 90 tablet, Refills 2, Tot. Refills 2, Maintenance, 03/31/20 10:32:00 EDT, Route to Pharmacy Electronically, [facility]/pharmacy #[id number], 150, cm, 07/26/19 14:53:00 EST, Height, 60.9, kg, 08/14/18 15:46:00 EST, Dry Weight Start Date: 03/31/20 Stop Date: 12/26/20 Status: OrderedFioricet oral capsule 1 capsule, By Mouth, Every 4 hours, PRN as needed, do not not to exceed 6 capsules/day and do not take more than 2-3x/ week, # 30 capsule, 0 Refills, Maintenance, 10/10/19 8:24:00 EDT, Capsule, [facility]/pharmacy #207, 1 capsule By Mouth Every 4 hours,[place]... Start Date: 10/10/19 Status: OrderedFlonase 50 mcg/inh nasal spray 1 sprays, Nares, Both, 2 times a day, # 16 Gm, 5 Refills, Maintenance, 07/05/19 10:32:00 EST, [place],[facility]/pharmacy #207, 1 sprays Nares, Both 2 times a day, 150, cm, 07/05/19 9:54:00 EST, Height, 60.9,kg, 08/14/18 15:46:00 EST, Dry Weight Start Date: 07/05/19 Status: Orderedfolic acid 1 mg oral tablet 1 mg, 1, tablet, By Mouth, Daily, # 90 tablet, Refills 11, Tot. Refills 11, Maintenance, 12/14/17 16:29:02 EDT, Route to Pharmacy Electronically, [id number], [facility]/pharmacy #[id number] Start Date: 12/14/17 Status: OrderedFreestyle Lite Lancets [...] 01/01/20 10:32:00 EDT, [id number], cm, 07/26/19 14:53:00 EST, Height, 60.9, kg, 08/14/18 15:46:00 EST, . Start Date: 01/01/20 Stop Date: 06/29/20 Status: OrderedglipiZIDE 5 mg oral tablet, extended release 1 tablet = 5 mg, By Mouth, Daily, for 90 days, # 90 tablet, 6 Refills, Hard Stop 03/26/21 10:33:00 EDT, 07/05/19 10:33:00 EST, [facility]/pharmacy #[id number], 150, cm, 07/05/19 9:54:00 EST, Height, 60.9, kg, 08/14/18 15:46:00 EST, Dry Weight Start Date: 07/05/19 Stop Date: 03/26/21 Status: OrderedglipiZIDE 5 mg oral tablet, extended release 1 tablet = 5 mg, By Mouth, Daily, # 90 tablet, 6 Refills, Maintenance, 03/26/21 10:33:00 EDT, [facility]/pharmacy #[id number], 150, cm, 08/30/19 10:49:00 EST, Height, 60.9, kg, 08/14/18 15:46:00 EST, Dry Weight Start Date: 03/26/21 Stop Date: 12/16/22 Status: OrderedJanuvia 25 mg oral tablet See Instructions, [facility], # 30 tablet, 5 Refills, Soft Stop, 02/19/20 13:09:00 EDT, [facility]/pharmacy #[id number], 150, cm, 08/30/19 10:49:00 EST, Height, 60.9, kg, 08/14/18 15:46:00 EST,Dry Weight Start Date: 02/19/20 Status: Orderedlisinopril 40 mg oral tablet 1 tablet = 40 mg, By Mouth, Daily, for 90 days, # 90 tablet, 11 Refills, Hard Stop 04/30/24 0:00:00 EDT, 05/16/21 0:00:00 EDT, Tablet, [facility]/pharmacy #[id number] Start Date: 05/16/21 Stop Date: 04/30/24 Status: Orderedlisinopril 40 mg oral tablet 1 tablet = 40 mg, By Mouth, Daily, for 90 days, # 90 tablet, 11 Refills, Hard Stop 04/15/27 0:00:00 EDT, 04/30/24 0:00:00 EDT, Tablet, [facility]/pharmacy #[id number], 150, cm, 08/30/19 10:49:00 EST, Height, 60.9, kg, 08/14/18 15:46:00 EST, Dry Weight Start Date: 04/30/24 Stop Date: 04/15/27 Status: OrderedmetFORMIN 1000 mg oral tablet 1 tablet = 1,000 mg, By Mouth, 2 times a day, # 180 tablet, 5 Refills, Maintenance, 08/30/19 10:49:00 EST, Tablet, [facility]/pharmacy #2070, 150, cm, 08/30/19 10:49:00 [...] tablet, 11 Refills, Maintenance, 06/19/22 10:31:00 EST, [facility]/pharmacy #[id number], 150, cm, 08/30/19 10:49:00 [...]
--- OUTSIDE RECORDS SUMMARY | 2022-04-17 18:18 | XMS_ITS | Continuity of Care Document ---
:1955 Author Organization [facility] Address [address] [place] [address]- Care Team Providers Name Role Phone Ping Salazar DO Primary Care Physician [place] [facility] [place] 02/09/[address] [address]- [facility] Attending Physician: AdmMir [email or web address] Admitting [...] 650 mg, By Mouth, Once, lot # [id number] exp: 03/2020 mfg: [employer], 0 Refills, [...] chamber, # 25 Gm, Refills 11, Tot. [id number], Maintenance, 08/30/19 10:49:00 EST, Aerosol, Route to Pharmacy Electronically, [id number], [facility]/pharmacy #[id number], 150, cm,... Start Date: 08/30/19 [...] 11/02/19 16:30:00 EDT, Route to Pharmacy Electronically, [facility]/pharmacy #[id number], 150, cm, 08/30/19 10:49:00EST, Height, [...] tablet, 11 Refills, Maintenance, 11/02/19 16:31:00 EDT, [facility]/pharmacy #[id number], 150, cm, 08/30/19 10:49:00 EST, Height, 60.9, kg, 08/14/18 15:46:00 EST, Dry Weight Start Date: 11/02/19 Status: Orderedfamotidine 20 mg oral tablet 20 mg, By Mouth, Daily, # 60 each, Refills 1, Tot. Refills 1, Maintenance, 09/03/19 10:32:00 EST, Route to Pharmacy Electronically, [facility]/pharmacy #2070, 150, cm, 07/26/19 14:53:00 EST, Height, 60.9, kg,08/14/18 15:46:00 EST, Dry Weight Start Date: 09/03/19 Stop Date: 11/02/19 Status: Orderedferrous sulfate 325 mg oral enteric coated tablet 325 mg, 1, tablet, By Mouth, Daily, # 90 tablet, Refills 2, Tot. Refills 2, Maintenance, 03/31/20 10:32:00 EDT, Route to Pharmacy Electronically, [facility]/pharmacy #[id number], 150, cm, 07/26/19 14:53:00 EST, Height, 60.9, kg, 08/14/18 15:46:00 EST, Dry Weight Start Date: 03/31/20 Stop Date: 12/26/20 Status: OrderedFioricet oral capsule 1 capsule, By Mouth, Every 4 hours, PRN as needed, do not not to exceed 6 capsules/day and do not take more than 2-3x/ week, # 30 capsule, 0 Refills, Maintenance, 10/10/19 8:24:00 EDT, Capsule, [facility]/pharmacy #[id number], 1 capsule By Mouth Every 4 hours,[place]... Start Date: 10/10/19 Status: OrderedFlonase 50 mcg/inh nasal spray 1 sprays, Nares, Both, 2 times a day, # 16 Gm, 5 Refills, Maintenance, 07/05/19 10:32:00 EST, [place],[facility]/pharmacy #[id number], 1 sprays Nares, Both 2 times a day, 150, cm, 07/05/19 9:54:00 EST, Height, 60.9,kg, 08/14/18 15:46:00 EST, Dry Weight Start Date: 07/05/19 Status: Orderedfolic acid 1 mg oral tablet 1 mg, 1, tablet, By Mouth, Daily, # 90 tablet, Refills 11, Tot. Refills 11, Maintenance, 12/14/17 16:29:02 EDT, Route to Pharmacy Electronically, [id number], [facility]/pharmacy #[id number] Start Date: 12/14/17 Status: OrderedFreestyle [...] 01/01/20 10:32:00 EDT, Route to Pharmacy Electronically, [facility]/pharmacy #[id number], 150, cm, 07/26/19 14:53:00 EST, Height, 60.9, kg, 08/14/18 15:46:00 EST, . Start Date: 01/01/20 Stop Date: 06/29/20 Status: OrderedglipiZIDE 5 mg oral tablet, extended release 1 tablet = 5 mg, By Mouth, Daily, for 90 days, # 90 tablet, 6 Refills, Hard Stop 03/26/21 10:33:00 EDT, 07/05/19 10:33:00 EST, [facility]/pharmacy #[id number], 150, cm, 07/05/19 9:54:00 EST, Height, 60.9, kg, 08/14/18 15:46:00 EST, Dry Weight Start Date: 07/05/19 Stop Date: 03/26/21 Status: OrderedglipiZIDE 5 mg oral tablet, extended release 1 tablet = 5 mg, By Mouth, Daily, # 90 tablet, 6 Refills, Maintenance, 03/26/21 10:33:00 EDT, [facility]/pharmacy #2071, 150, cm, 08/30/19 10:49:00 EST, Height, 60.9, kg, 08/14/18 15:46:00 EST, Dry Weight Start Date: 03/26/21 Stop Date: 12/16/22 Status: OrderedJanuvia 25 mg oral tablet See Instructions, [facility], # 30 tablet, 5 Refills, Soft Stop, 07/04/19 7:29:00 EST, [facility]/pharmacy #[id number], 150, cm, 05/14/19 14:08:00 EDT, Height, 60.9, kg, 08/14/18 15:46:00 EST, Dry Weight Start Date: 07/04/19 Status: Orderedlisinopril 40 mg oral tablet 1 tablet = 40 mg, By Mouth, Daily, for 90 days, # 90 tablet, 11 Refills, Hard Stop 04/30/24 0:00:00 EDT, 05/16/21 0:00:00 EDT, Tablet, [facility]/pharmacy #[id number] Start Date: 05/16/21 Stop Date: 04/30/24 Status: Orderedlisinopril 40 mg oral tablet 1 tablet = 40 mg, By Mouth, Daily, for 90 days, # 90 tablet, 11 Refills, Hard Stop 04/15/27 0:00:00 EDT, 04/30/24 0:00:00 EDT, Tablet, [facility]/pharmacy #2071, 150, cm, 08/30/19 10:49:00 EST, Height, 60.9, kg, 08/14/18 15:46:00 EST, Dry Weight Start Date: 04/30/24 Stop Date: 04/15/27 Status: OrderedmetFORMIN 1000 mg oral tablet 1 tablet = 1,000 mg, By Mouth, 2 times a day, # 180 tablet, 5 Refills, Maintenance, 08/30/19 10:49:00 EST, Tablet, [facility]/pharmacy #2070, 150, cm, 08/30/19 10:49:00 EST, [...]
--- OUTSIDE RECORDS SUMMARY | 2022-04-17 18:18 | XMS_ITS | Continuity of Care Document ---
:1955 Author Organization [facility] Address [address] [place] [address]- Care Team Providers Name Role Phone Ping Salazar DO Primary Care Physician [place] [facility] [place]/05/19 - 09/09/[address] [address]- [facility] Attending Physician: Not on Staff, Attending MD Referring Physician: Ping Salazar DO Allergies, [...] 650 mg, By Mouth, Once, lot # [id number] exp: 03/2020 mfg: [employer], 0 Refills, [...] chamber, # 25 Gm, Refills 11, Tot. [id number], Maintenance, 08/30/19 10:49:00 EST, Aerosol, Route to Pharmacy Electronically, [id number], [facility]/pharmacy #[id number], 150, cm,... Start [...] 07/05/19 10:31:00 EST, Route to Pharmacy Electronically, [facility]/pharmacy #[id number], 150, cm, 07/05/19 [...] tablet, 11 Refills, Maintenance, 08/30/19 10:49:00 EST, [facility]/pharmacy #2071, 150, cm, 08/30/19 10:49:00 EST, Height, 60.9, kg, 08/14/18 15:46:00 EST, Dry Weight Start Date: 08/30/19 Status: Orderedfamotidine 20 mg oral tablet 20 mg, By Mouth, Daily, # 60 each, Refills 1, Tot. Refills 1, Maintenance, 09/03/19 10:32:00 EST, Route to Pharmacy Electronically, [facility]/pharmacy #2070, 150, cm, 07/26/19 14:53:00 EST, Height, 60.9, kg,08/14/18 15:46:00 EST, Dry Weight Start Date: 09/03/19 Stop Date: 11/02/19 Status: Orderedferrous sulfate 325 mg oral enteric coated tablet 325 mg, 1, tablet, By Mouth, Daily, # 90 tablet, Refills 2, Tot. Refills 2, Maintenance, 03/31/20 10:32:00 EDT, Route to Pharmacy Electronically, [facility]/pharmacy #2070, 150, cm, 07/26/19 14:53:00 [...] Gm, 5 Refills, Maintenance, 07/05/19 10:32:00 EST, [place],[facility]/pharmacy #[id number], 1 sprays Nares, Both 2 times a day, 150, cm, 07/05/19 9:54:00 EST, Height, 60.9,kg, 08/14/18 15:46:00 EST, Dry Weight Start Date: 07/05/19 Status: Orderedfolic acid 1 mg oral tablet 1 mg, 1, tablet, By Mouth, Daily, # 90 tablet, Refills 11, Tot. Refills 11, Maintenance, 12/14/17 16:29:02 EDT, Route to Pharmacy Electronically, [id number], [facility]/pharmacy #2079 Start Date: 12/14/17 Status: OrderedFreestyle Lite Lancets [...] 07/05/19 10:32:00 EST, Route to Pharmacy Electronically, [facility]/pharmacy#207, 150, cm, 07/05/19 9:54:00 EST, Height, 60.... Start Date: 07/05/19 Stop Date: 01/01/20 Status: Orderedgabapentin 300 mg oral capsule 300 mg, 1, capsule, By Mouth, 3 times a day, # 90 capsule, Refills 5, Tot. Refills 5, Maintenance, 01/01/20 10:32:00 EDT, [facility], cm, 07/26/19 14:53:00 EST, Height, 60.9, kg, 08/14/18 15:46:00 EST, Start Date: 01/01/20 Stop Date: 06/29/20 Status: OrderedglipiZIDE 5 mg oral tablet, extended release 1 tablet = 5 mg, By Mouth, Daily, for 90 days, # 90 tablet, 6 Refills, Hard Stop 03/26/21 10:33:00 EDT, 07/05/19 10:33:00 EST, [facility], cm, 07/05/19 9:54:00 EST, Height, [...] 5 Refills, Soft Stop, 07/04/19 7:29:00 EST, [facility]/pharmacy #2071, 150, cm, 05/14/19 14:08:00 EDT, Height, 60.9, kg, 08/14/18 15:46:00 EST, Dry Weight Start Date: 07/04/19 Status: Orderedlisinopril 40 mg oral tablet 1 tablet = 40 mg, By Mouth, Daily, for 90 days, # 90 tablet, 11 Refills, Hard Stop 04/30/24 0:00:00 EDT, 05/16/21 0:00:00 EDT, Tablet, [facility]/pharmacy #207 Start Date: 05/16/21 Stop Date: 04/30/24 Status: OrderedmetFORMIN 1000 mg oral tablet 1 tablet = 1,000 mg, By Mouth, 2 times a day, # 180 tablet, 5 Refills, Maintenance, 08/30/19 10:49:00 EST, Tablet, [facility]/pharmacy #2070, 150, cm, 08/30/19 10:49:00 [...] Maintenance, 06/19/22 10:31:00 EST, [facility]/pharmacy #2070, 150, cm, 08/30/19 10:49:00 EST, Height, 60.9, kg, 08/14/18 15:46:00 EST, Dry Weight Start Date: 06/19/22 Stop Date: 06/03/25 Status: OrderedZithromax 250 mg oral tablet 1 pack/packet, By Mouth, Once, # 6 tablet, 0 Refills, Soft Stop, 08/30/19 10:53:00 EST, Tablet, [facility]/pharmacy #2071, 150, [...]
--- OUTSIDE RECORDS SUMMARY | 2022-04-17 18:18 | XMS_ITS | Continuity of Care Document ---
:1955 Author Organization [facility] Address [address] [place] [address]- Care Team Providers Name Role Phone Ping Salazar DO Primary Care Physician [place] [facility] [place] Date(s): 07/05/19 - 09/23/[address] [address]- [facility] Attending Physician: Christine Schroeder MD Admitting Physician: [...] 650 mg, By Mouth, Once, lot # [id number] exp: 03/2020 mfg: [employer], 0 Refills, [...] chamber, # 25 Gm, Refills 11, Tot. [id number], Maintenance, 08/30/19 10:49:00 EST, Aerosol, Route to Pharmacy Electronically, [id number], [facility]/pharmacy #[id number], 150, cm,... Start Date: 08/30/19 Status: [...] 07/05/19 10:31:00 EST, Route to Pharmacy Electronically, [facility]/pharmacy #[id number], 150, cm, 07/05/19 9:54:00 EST, Height, [...] tablet, 11 Refills, Maintenance, 08/30/19 10:49:00 EST, [facility]/pharmacy #1, 150, cm, 08/30/19 10:49:00 EST, Height, 60.9, kg, 08/14/18 15:46:00 EST, Dry Weight Start Date: 08/30/19 Status: Orderedfamotidine 20 mg oral tablet 20 mg, By Mouth, Daily, # 60 each, Refills 1, Tot. Refills 1, Maintenance, 09/03/19 10:32:00 EST, Route to Pharmacy Electronically, [facility]/pharmacy #2070, 150, cm, 07/26/19 14:53:00 EST, Height, 60.9, kg,08/14/18 15:46:00 EST, Dry Weight Start Date: 09/03/19 Stop Date: 11/02/19 Status: Orderedferrous sulfate 325 mg oral enteric coated tablet 325 mg, 1, tablet, By Mouth, Daily, # 90 tablet, Refills 2, Tot. Refills 2, Maintenance, 03/31/20 10:32:00 EDT, Route to Pharmacy Electronically, [facility]/pharmacy #2070, 150, cm, 07/26/19 14:53:00 EST, Height, [...] Gm, 5 Refills, Maintenance, 07/05/19 10:32:00 EST, [place],[facility]/pharmacy #207, 1 sprays Nares, Both 2 times a day, 150, cm, 07/05/19 9:54:00 EST, Height, 60.9,kg, 08/14/18 15:46:00 EST, Dry Weight Start Date: 07/05/19 Status: Orderedfolic acid 1 mg oral tablet 1 mg, 1, tablet, By Mouth, Daily, # 90 tablet, Refills 11, Tot. Refills 11, Maintenance, 12/14/17 16:29:02 EDT, Route to Pharmacy Electronically, [id number], [facility]/pharmacy #2071 Start Date: 12/14/17 Status: OrderedFreestyle Lite [...] 07/05/19 10:32:00 EST, Route to Pharmacy Electronically, [facility]/pharmacy#2071, 150, cm, 07/05/19 9:54:00 EST, Height, 60.... Start Date: 07/05/19 Stop Date: 01/01/20 Status: Orderedgabapentin 300 mg oral capsule 300 mg, 1, capsule, By Mouth, 3 times a day, # 90 capsule, Refills 5, Tot. Refills 5, Maintenance, 01/01/20 10:32:00 EDT, [facility], cm, 07/26/19 14:53:00 EST, Height, 60.9, kg, 08/14/18 15:46:00 EST, DrAlli.. Start Date: 01/01/20 Stop Date: 06/29/20 Status: OrderedglipiZIDE 5 mg oral tablet, extended release 1 tablet = 5 mg, By Mouth, Daily, for 90 days, # 90 tablet, 6 Refills, Hard Stop 03/26/21 10:33:00 EDT, 07/05/19 10:33:00 EST, [facility], [facility], cm, 07/05/19 9:54:00 EST, Height, 60.9, kg, 08/14/18 15:46:00 EST, Dry Weight Start Date: 07/05/19 Stop Date: 03/26/21 Status: OrderedglipiZIDE 5 mg oral tablet, extended release 1 tablet = 5 mg, By Mouth, Daily, # 90 tablet, 6 Refills, Maintenance, 03/26/21 10:33:00 EDT, [facility]/pharmacy #2071, 150, cm, 08/30/19 10:49:00 EST, Height, 60.9, kg, 08/14/18 15:46:00 EST, Dry Weight Start Date: 03/26/21 Stop Date: 12/16/22 Status: OrderedJanuvia 25 mg oral tablet See Instructions, [facility], # 30 tablet, 5 Refills, Soft Stop, 07/04/19 7:29:00 EST, [facility]/pharmacy #2071, 150, cm, 05/14/19 14:08:00 EDT, Height, 60.9, kg, 08/14/18 15:46:00 EST, Dry Weight Start Date: 07/04/19 Status: Orderedlisinopril 40 mg oral tablet 1 tablet = 40 mg, By Mouth, Daily, for 90 days, # 90 tablet, 11 Refills, Hard Stop 04/30/24 0:00:00 EDT, 05/16/21 0:00:00 EDT, Tablet, [facility]/pharmacy #207 Start Date: 05/16/21 Stop Date: 04/30/24 Status: OrderedmetFORMIN 1000 mg oral tablet 1 tablet = 1,000 mg, By Mouth, 2 times a day, # 180 tablet, 5 Refills, Maintenance, 08/30/19 10:49:00 EST, Tablet, [facility]/pharmacy #2070, 150, cm, 08/30/19 10:49:00 EST, Height, [...] tablet, 11 Refills, Maintenance, 06/19/22 10:31:00 EST, [facility]/pharmacy #1, 150, cm, 08/30/19 10:49:00 EST, Height, 60.9, kg, 08/14/18 15:46:00 EST, Dry Weight Start Date: 06/19/22 Stop Date: 06/03/25 Status: OrderedZithromax 250 mg oral tablet 1 pack/packet, By Mouth, Once, # 6 tablet, 0 Refills, Soft Stop, 08/30/19 10:53:00 EST, Tablet, [facility]/pharmacy #2071, 150, cm, 08/30/19 10:49:00 EST, Height, 60.9, kg, 08/14/18 15:46:00 EST, Dry Weight Start Date: 08/30/19 Status: Ordered Problem List Condition Effective Dates Status Health Status Informant Asthma(Confirmed) Active Diabetes Mellitus(Confirmed) Active Hypertension(Confirmed) Active Social History Social History Type Response Smoking Status Never smoker; Tobacco user i n household: No entered on: 06/06/17 Sex
[2022-04-17] MEDS: Cyclobenzaprine HCl 10 MG TABLET PO (19:19)
[2022-04-17] MEDS: Acetaminophen 325 MG TABLET 975 MG PO (19:19)
--- NOTE | 2022-04-17 20:39 | ED.FALL ---
HPI - Fall General Chief Complaint: Back Pain/Injury Stated Complaint: back pain Time Seen by Provider: 04/17/22 18:26 Source: patient Mode of arrival: ambulatory Limitations: language barrier (Belarusian-speaking) History of Present Illness HPI Narrative: 66-year-old female with a past medical history of arthritis, diabetes, retinopathy who is presenting to the ER with complaints of neck/upper back/lower back pain, right shoulder and right elbow pain/swelling after she fell out of her bed last night. She reports she is unsure if she hit her head although she reports that she did not lose consciousness. She reports she was able to get back up right away she did not see on the ground for too long. She denies being on any blood thinners. She denies any headaches, dizziness, jaw pain, changes in vision, paresthesias, chest pain or shortness of breath, dyspnea on exertion, orthopnea, palpitations, paresthesias, abdominal pain or injury, urinary bowel incontinence or retention, IV drug use, fevers, flank pain, dysuria, hematuria or any other symptoms complaints or concerns at this time. She reports that she has a Lidoderm patch to her back although no symptomatic relief MD complaint: fall Onset (ago): day(s) (Last night) Fall from: out of bed Fall witnessed: no Place fall occurred: home Loss of consciousness: none Prolonged down time: no Symptoms prior to fall: none Context: history of frequent falls Location of injury: neck and back Location of injury - extremities: right: shoulder and elbow Severity: moderate Quality: aching and spasming Associated symptoms (after fall): neck pain (Back pain, right shoulder pain and right elbow pain) Related Data Previous Rx's Medication Instructions Recorded walker #1 ea 04/06/21 methocarbamol 500 mg tablet 500 mg PO TID PRN pain (scale 09/23/21 score 4-6) #14 tabs acetaminophen 500 mg tablet 500 mg PO Q6H PRN pain or fever 10/27/21 (Tylenol Extra Strength) #20 tabs cholestyramine-aspartame 4 gram 4 g PO TID #60 ea 10/27/21 oral powder for susp in a packet (Prevalite) clopidogrel 75 mg tablet (Plavix) 75 mg PO DAILY #30 tabs 10/27/21 gabapentin 300 mg capsule 300 mg PO TID #90 caps 10/27/21 lidocaine HCl 4 % topical cream 1 appl topical BID PRN pain #120 10/27/21 (Aspercreme (lidocaine HCl)) grams blood-glucose meter (FreeStyle #1 ea 11/10/21 Lite Meter kit) lancets 28 gauge (FreeStyle #100 ea 11/10/21 Lancets) hydrochlorothiazide 25 mg tablet 25 mg PO DAILY #30 tabs 01/21/22 metronidazole 500 mg tablet 500 mg PO Q8H 7 days #21 tabs 02/01/22 ondansetron 4 mg disintegrating 4 mg PO Q8H PRN nausea and 02/01/22 tablet vomiting #10 tabs glipizide 5 mg tablet 5 mg PO DAILY #90 tabs 02/08/22 metformin 1,000 mg tablet 1,000 mg PO BID #180 tabs 02/08/22 lisinopril 40 mg tablet 40 mg PO DAILY #30 tabs 02/22/22 albuterol sulfate 90 mcg/actuation 2 puff inhalation Q4-6H shortness 03/09/22 aerosol inhaler (ProAir HFA) of breath or wheezing #8.5 grams blood sugar diagnostic (FreeStyle #100 ea 03/09/22 Lite Strips) lidocaine 5 % topical patch 1 patch topical DAILY PRN pain #30 03/09/22 (Lidoderm) ea amlodipine 5 mg tablet 5 mg PO DAILY #30 tabs 03/31/22 atorvastatin 40 mg tablet 40 mg PO DAILY Hyperlipidemia #30 03/31/22 tabs metoprolol succinate 100 mg 100 mg PO DAILY #30 tabs 04/13/22 tablet,extended release 24 hr acetaminophen 500 mg tablet 1,000 mg PO QID PRN fever or pain 04/17/22 (Tylenol Extra Strength) #14 tabs cyclobenzaprine 10 mg tablet 10 mg PO Q8H Muscle strain #14 tabs 04/17/22 ketorolac 10 mg tablet 10 mg PO Q8H #14 tabs 04/17/22 Allergies Allergy/AdvReac Type Severity Reaction Status Date / Time aspirin [ASPIRIN] Allergy Intermediate RASH Verified 03/09/22 11:00 Penicillins [PENICILLINS] Allergy Intermediate SWELLING Verified 03/09/22 11:00 tramadol [TRAMADOL] Allergy Unknown NAUSEA Verified 03/09/22 11:00 Review of Systems Review of Systems: Constitutional : No trauma, No Weight loss, No Fever, No Chills, ENT/Mouth : No Hearing loss, No Ear Pain, No Nasal Congestion, No Sinus Pain, No Hoarseness, No sore throat, No Rhinorrhea, No Swallowing Difficulty Cardiovascular : No Chest Pain, No SOB Respiratory : No Cough, No Dyspnea Gastrointestinal : No Nausea, No Vomiting, No Diarrhea, No abdominal Pain, No Hematochezia, No Melena Genitourinary : No Dysuria, No Urinary Frequency, No Hematuria, No Urinary or Bowel Incontinence/retention Musculoskeletal : + Back pain, + neck pain, + right shoulder/right elbow pain, No joint stiffness Skin : No Skin Lesions, No rash or signs of infection Neuro : No Weakness, No radiation, No Numbness, No Paresthesias, No headache, no loss of bowel or bladder incontinence, no saddle anesthesia Denies history of IV drug usage. Yes all other systems are reviewed and are negative [facility] Past Medical History Attestation statement: The following information was validated with the patient. Source: old records reviewed and nursing notes reviewed Medical History Arthritis Diabetes Encounter to establish care No known health problems Retinopathy Surgical History History of 2 sections History of cholecystectomy History of hysterectomy Social History Social History Housing: Apartment Alcohol intake: never Patient Tobacco Use Status: Never used Tobacco e-Cigarette/Vaping Use: Never Used Second Hand Smoke Exposure: No Use of substances other than those prescribed or required for medical reasons: No Advance Directives: No Advance Directives Information Provided: Yes service: No Current occupational status: disabled Cognitive needs: Yes (cane,walker) Hearing needs: No Vision needs: Yes (glasses) Physical Exam Vital Signs: Vital Signs: Last Vital Signs Temp 98.0 F 04/17/22 18:00 Pulse 97 04/17/22 18:00 Resp 14 04/17/22 18:00 BP 117/75 04/17/22 18:00 Pulse Ox 99 04/17/22 18:00 O2 Del Method 04/17/22 17:40 BMI result Body Mass Index 26.6 vital signs have been reviewed as normal and appeared to be correct. Blood pressure normal. Heart rate normal. Respiration rate normal. Temperature normal. Oxygen saturation normal. Appearance: Alert. Oriented X3. No acute distress. Head: Normal external exam. Normocephalic. Atraumatic. No Cedillo signs noted. No raccoon eyes noted Eyes: PERRLA. EOMI. Conjunctiva and sclera normal. Eyelids normal. ENT: EAC normal. TM's Normal. Pharynx normal. Uvula midline. Moist mucous membranes. No trismus noted. No drooling noted. No muffled voice noted. Neck: Normal inspection. Neck supple. FROM. No adenopathy. Thyroid Normal. No meningeal signs. No neck mass noted. Patient with tenderness palpation to bilateral paracervical musculature. No mid cervical tenderness step-offs or deformities noted. No signs of trauma noted. She has full range of motion of upper extremities. Normal sensation to upper extremities. Normal strength upper extremities CVS: Normal heart rate and rhythm. Heart sound normal. No murmurs noted. Pulses normal throughout. Respiratory: No respiratory distress. Painless inspiration. Breath sounds normal. No wheezes/rales/rhonchi noted. Chest nontender. No accessory muscle usage noted or decreased air movement noted. Abdomen: Soft and nontender. Bowel sounds normal in all 4 quadrants. No distention noted. No organomegaly noted. No visible injury noted. Back: No CVA tenderness. Full range of motion noted. No obvious deformities, or edema. Mild para-spinal muscular tenderness from thoracic to lumbar region to coccyx. Full ROM in back and lower extremities. 5/5 strength hip extension/flexion, abduction, adduction. Mild Lumbar pain with hip flexion against resistance. Straight leg raise test negative on right; Straight leg raise test negative on left; Reflexes normal ankle and knee bilaterally; EHL motor strength normal bilaterally. No rashes/lesion/induration/fluctuance or signs infection noted. Skin: Skin warm and dry. Normal skin color. Normal skin turgor. No rashes/lesions/lacerations noted. Extremities: Patient mild tenderness palpation to the right shoulder and right elbow. She has full range of motion of the right shoulder and the right elbow. Has mild soft tissue swelling noted to the right elbow. No obvious ligamentous or tendon injury noted to the right shoulder right elbow. Otherwise all other Extremities exhibit normal range of motion. Extremities nontender. Neuro: Oriented X 3. No motor deficit. No sensory deficit. Reflexes normal. Patient has a normal steady gait. Course Course Course Narrative: 19pm - 66-year-old female with a past medical history of arthritis, diabetes, retinopathy who is presenting to the ER with complaints of neck/upper back/lower back pain, right shoulder and right elbow pain/swelling after she fell out of her bed last night. She reports she is unsure if she hit her head although she reports that she did not lose consciousness. She reports she was able to get back up right away she did not see on the ground for too long. Plan: Will provide Toradol, Tylenol, Flexeril. Obtain a CT scan of brain/cervical spine, x-ray of right shoulder, x-ray of right elbow, x-ray of thoracic and lumbar spine re-evaluate. Reevaluation(s) Reevaluation #1: - all imaging negative for any acute processes only chronic changes. Therefore at this time will DC home with symptomatic treatment instructions return if any new or worsening symptoms follow up with primary care provider. Patient understands agrees with this plan. Time: 21:26 [facility] - Fall Medical Records Attestation: I reviewed the patient's medical records. Discharge Plan Discharge Clinical Impression: Fall, Cervical sprain, Sprain of upper back, Sprain of low back, Sprain of right shoulder, Sprain of right elbow Patient Disposition: Home, Self-Care Instructions: Elbow Sprain (ED), Shoulder Sprain (ED), Cervical Sprain (ED), Back Pain (ED) Prescriptions: New ketorolac 10 mg tablet 10 mg PO Q8H Qty: 14 0RF cyclobenzaprine 10 mg tablet 10 mg PO Q8H Qty: 14 0RF acetaminophen [Tylenol Extra Strength] 500 mg tablet 1,000 mg PO QID PRN (Reason: fever or pain) Qty: 14 0RF No Action (DME) blood-glucose meter [FreeStyle Lite Meter] Kit See Rx Instructions .Route Qty: 1 0RF Rx Instructions: check BS 2-3x/day (DME) lancets [FreeStyle Lancets] 28 gauge misc See Rx Instructions .Route Qty: 100 0RF Rx Instructions: check BS 1-2x/day hydrochlorothiazide 25 mg tablet 25 mg PO DAILY Qty: 30 2RF glipizide 5 mg tablet 5 mg PO DAILY Qty: 90 0RF metformin 1,000 mg tablet 1,000 mg PO BID Qty: 180 0RF lisinopril 40 mg tablet 40 mg PO DAILY Qty: 30 3RF amlodipine 5 mg tablet 5 mg PO DAILY Qty: 30 3RF atorvastatin 40 mg tablet 40 mg PO DAILY Qty: 30 3RF metoprolol succinate 100 mg tablet extended release 24 hr 100 mg PO DAILY Qty: 30 3RF (DME) walker Misc See Rx Instructions .Route Qty: 1 0RF Rx Instructions: As directed methocarbamol 500 mg tablet 500 mg PO TID PRN (Reason: pain (scale score 4-6)) Qty: 14 0RF metronidazole 500 mg tablet 500 mg PO Q8H 7 Days Qty: 21 0RF ondansetron 4 mg tablet,disintegrating 4 mg PO Q8H PRN (Reason: nausea and vomiting) Qty: 10 0RF lidocaine [Lidoderm] 5 % adhesive patch,medicated 1 patch topical DAILY MDD remove after 12 hours PRN (Reason: pain) Qty: 30 0RF Rx Instructions: leave on most painful area for up to 12 hrs albuterol sulfate [ProAir HFA] 90 mcg/actuation HFA aerosol inhaler 2 puff inhalation Q4-6H Qty: 8.5 0RF (DME) FreeStyle Lite Strips Strip See Rx Instructions .Route Qty: 100 11RF Rx Instructions: check BS 1-2x/day lidocaine HCl [Aspercreme (lidocaine HCl)] 4 % cream 1 appl topical BID PRN (Reason: pain) Qty: 120 0RF acetaminophen [Tylenol Extra Strength] 500 mg tablet 500 mg PO Q6H PRN (Reason: pain or fever) Qty: 20 0RF clopidogrel [Plavix] 75 mg tablet 75 mg PO DAILY Qty: 30 3RF gabapentin 300 mg capsule 300 mg PO TID Qty: 90 3RF cholestyramine-aspartame [Prevalite] 4 gram powder in packet 4 g PO TID Qty: 60 1RF Rx Instructions: administer w/meal; avoid other meds within 1hr before or 4-6hr after dose Referrals: Physician,Unknown J [Primary Care Provider] - 2 days (your pcp) Print Language: Belarusian
[2022-04-17] MEDS: Ketorolac Tromethamine 60 MG/2 ML VIAL IM (20:43)
[2022-04-17 21:28] VITALS: BP 141/72; PULSE 97; RESP 14; TEMP 36.6; O2SAT 98
--- NOTE | 2022-04-17 21:43 | PC.NURSE ---
Discharge instructions provided to pt and all questions asked. Pt verbalizes understanding.
== END 2022-04-17 21:44 | disposition home or self-care (01) ==
PROVIDERS: Emergency Provider Internal Medicine
DX: S13.4XXA Sprain of ligaments of cervical spine, initial encounter (principal); S23.3XXA Sprain of ligaments of thoracic spine, initial encounter; S33.5XXA Sprain of ligaments of lumbar spine, initial encounter; S43.401A Unspecified sprain of right shoulder joint, initial encounter; S53.401A Unspecified sprain of right elbow, initial encounter; W06.XXXA Fall from bed, initial encounter; Z91.81 History of falling; Y93.84 Activity, sleeping; Y92.032 Bedroom in apartment as the place of occurrence of the external cause; Y99.9 Unspecified external cause status
CPT/HCPCS: 70450; 72072; 72110; 72125; 73030; 73080; 96372; 99284; J1885

== ENCOUNTER → 2022-04-30 11:12 | Outpatient (BNVA) | payer MEDICARE, MEDICAID, SELFPAY | PROVIDERS: PCP Nurse Practitioner Family; Visit Provider Physician Assistant | DX: M75.80 Other shoulder lesions, unspecified shoulder (principal); M75.21 Bicipital tendinitis, right shoulder | CPT/HCPCS: 99202 ==

== ENCOUNTER 2022-08-23 11:38 | Outpatient (RCR) | payer OTHER, MEDICAID, SELFPAY ==
--- NOTE | 2022-08-23 14:23 | MHC.PT.EP ---
[facility] [place] Office [place] Office [place] Office [address] Sharri Mccrary [address] [phone] F: [phone] F: [phone] F: [phone] F: [phone] Physical Therapy Plan of Care Date of Evaluation: Date of Surgery: N/A Diagnosis: bicipital tendinitis, right shoulder (RC) Assessment: pt is a y/o male presenting to physical therapy w/ referring diagnosis of bicipital tendinitis, right shoulder. Impairments include pain, decreased range of motion, decreased strength, impaired functional mobility, impaired postural awareness, and altered ambulation mechanics. Impairments also include M25.511 pain in right shoulder, M62.81 muscle weakness. Questionable R biceps tear; however, pt w/ submaximal effort at time of eval and no clear Ayaz deformity. pt is a good candidate for skilled PT due to age, potential remediation of impairments, typical disease/condition progression and prognosis, comorbidities, and motivation. pt would benefit from skilled PT intervention to provide a tailored strengthening and stretching exercise program, functional training, gait training, postural re-training, neuromuscular re-education, modalities as needed for pain, equipment safety demonstration. Frequency and Duration: The patient will be seen 2x/wk for 3 wks Short Term Goals: pt will be I w/ HEP to promote self-management of condition. pt will demo proper sitting posture w/ lumbar roll to promote neural spine w/ seated ADLs. pt will improve R shoulder flexion AROM by at least 10* to promote improvement in overhead reaching. Internet Systems Administrator Goals: pt will report a statistically significant improvement in self-reported outcome measure, SPADI, to promote return to PLOF. pt will improve R shoulder functional ER to at least C3 to promote ease in upper body ADLs including combing her hair. pt will improve R shoulder elbow flexion strength to at least 4/5 to promote ease in carrying her purse and grocery bags. Treatment Plan: Modalities to reduce pain, spasms and effusion. Manual therapy to restore motion and function. Therapeutic exercise to improve strength and flexibility. Neuromuscular re-education for posture and balance. Therapeutic activities to return to functional activities of daily living. Electronically signed by: Kassy Prajapati PT, DPT Please sign and return to therapist. Thank you for your referral.
--- NOTE | 2022-09-07 14:39 | MHC.PT.DC ---
[facility] [place] Office [place] Office [place] Office [address] Sharri Mccrary [address] [facility] [phone] F: [phone] F: [phone] F: [phone] F: [phone] Physical Therapy Discharge Report Diagnosis: bicipital tendinitis, right shoulder (RC) Date of Surgery: N/A Date of Evaluation: 08/23/22 Date of Discharge: 09/07/22 Treatments to Date: 1 Cancellations to Date: 0 No Shows to Date: 3 Discharge Status: Visit Non-compliance Discharge Summary: The patient has no showed three consecutive appointments since her initial evaluation. Given her presentation at the initial evaluation and mechanism of injury I was suspicious of a potential rotator cuff tear partial vs. full. She is discharged from this physical therapy plan of care due to visit non-compliance. Electronically signed by: Kassy Prajapati PT, DPT Please sign and return to therapist. Thank you for your referral.
== END 2022-09-07 14:39 | disposition home or self-care (01) ==
LOC: HO.PT 11:38
PROVIDERS: PCP Nurse Practitioner Family; Visit Provider Physician Assistant
DX: M75.80 Other shoulder lesions, unspecified shoulder (principal); M75.21 Bicipital tendinitis, right shoulder
CPT/HCPCS: 97110; 97162